=== PATIENT | male | born 1945 | race Caucasian/White ===

== ENCOUNTER 2016-09-13 17:14 | Inpatient (IN) | payer MEDICARE, MEDICAID ==
[2016-09-13] MEDS ORDERED: Piperac/Tazob 3.375 gm in NS* 3.375 GM/100 ML BAG IVPB ONE (18:15)
[2016-09-13] MEDS ORDERED: Acetaminophen TAB* 325 MG PO PRN (18:45)
[2016-09-13 18:46] LABS: ALT 38 U/L (7-52); Alkaline Phosphatase 55 U/L (34-104); BUN/Creatinine Ratio 31.6 (8-20); Blood Urea Nitrogen 62 mg/dL (6-24); CO2 Carbon Dioxide 24 mmol/L (22-32); Calcium 7.1 mg/dL (8.6-10.3); Chloride 85 mmol/L (101-111); Creatine Kinase 1374 U/L (10-223); EGFR African American 43.6 (>60); EGFR Non-African American 33.9 (>60); Globulin 2.6 g/dL (2-4); Glucose 60 mg/dL (70-100); Total Protein 5.6 g/dL (6.4-8.9)
[2016-09-13 18:47] LABS: Troponin I 0.02 ng/mL (<0.04)
[2016-09-13 19:01] LABS: Add Diff/Slide Review? Slide Review Added; Comments Flag Yes; Hematocrit 33 % (42-52); Hemoglobin 11.3 g/dl (14.0-18.0); Mean Corpuscular HGB Conc 35 g/dl (31-36); Mean Corpuscular Hemoglobin 29 pg (27-31); Mean Corpuscular Volume 84 fL (80-94); Mean Platelet Volume 9 um3 (7.4-10.4); Red Blood Count 3.91 10^6/ul (4.0-5.4); Red Cell Distribution Width 17 % (10.5-15); White Blood Count 2.8 10^3/ul (3.5-10.8)
[2016-09-13 19:17] LABS: Immature Granulocytes 25 % (0-9); Macrocytosis 1+; Microcytosis 1+; Neutrophil % 62 % (38-83)
[2016-09-13 19:20] LABS: Potassium 5.6 mmol/L (3.5-5.0)
[2016-09-13 19:22] LABS: AST 68 U/L (13-39); Sodium 119 mmol/L (133-145)
[2016-09-13] MEDS: Heparin VIAL(*) 5000 UNITS/ML VIAL (FIVE THOUSAND) SUBCUT SCH (22:31)
[2016-09-13 23:31] LABS: Urine Bacteria 1+ (Absent); Urine Bilirubin Negative (Negative); Urine Glucose Negative (Negative); Urine Nitrite Negative (Negative)
[2016-09-14] MEDS: Piperac/Tazob 3.375 gm in NS* 3.375 GM/100 ML BAG IVPB SCH ×3 (00:01→16:11)
[2016-09-14 00:27] LABS: BUN/Creatinine Ratio 36.6 (8-20); Calcium 7.3 mg/dL (8.6-10.3); EGFR Non-African American 45.1 (>60); Potassium 4.4 mmol/L (3.5-5.0)
[2016-09-14] MEDS: D5LR 1000 ML BAG* 1,000 ML IV SCH ×4 (01:36→22:49)
--- NOTE | 2016-09-14 02:59 | HP ---
HOSPITAL MEDICINE HISTORY AND PHYSICAL: DATE OF ADMISSION: 09/13/16 PRIMARY CARE PHYSICIAN: Dr. Fidel Abdullahi. ATTENDING PHYSICIAN: Dr. Shiela Leonardo* (dictation provided by Elham Abdi NP) CHIEF COMPLAINT: Altered mental status. HISTORY OF PRESENT ILLNESS: Mr. Griggs is a 70-year-old male, who has a history of paranoid schizophrenia and has altered mental status and is unable to provide any information today. Information is obtained from the electronic medical record from [facility] where the patient has been transferred from today as well as the patient's adult practice janitorial services supervisor, Juan F Abraham, and the patient's brother. Per the report, Mr. Griggs is not in contact with his brother and he was unable to provide information. The patient is seen routinely by his adult protective services' worker, Juan F, who states that he saw him on Tuesday. At that time, the patient was up and ambulatory and was taken to the grocery store. The patient had been counseled about the untidy state of his apartment and told that he should keep that clean. The patient stated that he had had some falls at home, but was unable to provide much more information to the case aide due to his paranoid schizophrenia. The patient is described as having flight of ideas and talking about students from [facility] tapping his brain. Per the report from the case aide, Mr. Griggs has longstanding paranoid schizophrenia, but refuses to take medications. The patient was not seen over the weekend. Today, he was visited by a person from [facility]. wWhen Mr. Griggs did not answer the door he was found to be on the ground on his back, unable to get up EMS reports that the house and patient were found to be covered with feces urine, and garbage. At [facility], the patient was noted to have urinary retention per the report and a smith was placed. He was confirmed to have acute renal failure with creatinine of 2.6 with BUN of 79. He has rhabdomyolysis that was CK greater than 1000. His sodium was low at 115, potassium high at 6.8, lactic acid elevated at 3.1. His WBC is actually normal. We repeated those labs here once the patient arrived. His sodium has improved with IV fluids to 119, his potassium has also improved to 5.6, his BUN and creatinine have improved at 62 and 1.96 respectively. His lactic acidosis has resolved. His CK is only slightly higher at 1374. He is leukopenic with white blood cell count of 2.8, anemic and thrombocytopenic as well. At [facility], the patient had multiple imaging studies, which are to be uploaded to our computer system. Per the report from those, the patient had a CT of the brain, which showed left maxillary sinusitis. He had a CT cervical spine, which showed no acute abnormality. CT thoracic spine, which showed no acute abnormality. CT chest showed concern for aspiration pneumonitis bilaterally, although malignancy cannot be ruled out. It is described as having "debris" in the right bronchus intermedius and extending into the rhonchi in the right middle and right lower lobe associated with subsegmental atelectasis in the right middle lobe and multifocal ground-glass opacities throughout the right middle lobe, right lower lobe, left lower lobe, nonspecific aspiration pneumonitis or pneumonia, malignancy cannot be excluded on the single examination and close followup should be considered. The patient also had a CT abdomen, which notes that it is an abnormal examination; however, there was no IV or oral contrast. There was concern for massive lymphadenopathy around the aorta and possible malignancy. Based on Mr. Griggs' presentation with critical illness, he was transferred to [facility] to the intensive care unit. PAST MEDICAL HISTORY: Paranoid schizophrenia. No other known history is available. MEDICATIONS: The patient is reportedly not taking any medications other than herbs and I do not have a list of those. FAMILY HISTORY: Unobtainable. SOCIAL HISTORY: Unobtainable. I do note that the patient lives alone and has an adult protective worker, his name is "Juan F Abraham", his number is [phone]. The patient's brother's information is available in the computer, but the patient's brother states that he has not been in contact with him. REVIEW OF SYSTEMS: Unobtainable. PHYSICAL EXAMINATION GENERAL: Mr. Griggs is lying in the bed. He is mumbling incoherently. VITAL SIGNS: Temperature 97.3, heart rate 75, respiratory rate 15, O2 saturation 97% on 4 L nasal cannula, blood pressure 115/51. LUNGS: Clear to auscultation bilaterally with no accessory muscle use and good aeration. HEART: S1, S2. No murmur, rub, or gallop and regular. ABDOMEN: Soft and appears to be nontender at this point. Bowel sounds are positive x4. EXTREMITIES: No cyanosis or edema. NEURO: He will intermittently follow commands such as following my finger when asked to. At other times, he does not follow commands at all. He is noted to be having a degree of decerbrate posturing in his upper extremities but not in the lower extremities. His pupils are equal and reactive. He has been noted to move all extremities. His face is symmetrical. He has good Babinski's bilaterally in the feet. SKIN: The patient has multiple bruises and and excoriation. He also has multiple ulcerations to his back at the shoulder blade, on spine, and at the coccyx consistent with lying on the floor for an extended period of time. He also has bruising to his forehead. LABORATORY DATA: WBC 2.8, hemoglobin 11.3, hematocrit 33, and platelet count 61. INR 1.25. Sodium 119, potassium 5.6, chloride 85, serum bicarbonate 24, BUN 62, creatinine 1.96, glucose 60, lactic acid 1.6. Total CK 1374. Troponin 0.02. The reports are as read above in HPI and they will be loaded into PACS. The CDs were delivered. ASSESSMENT AND PLAN: Mr. Griggs is a 70-year-old male with past medical history of paranoid schizophrenia, who presents today from [facility] in transfer concerned for altered mental status, acute renal failure, rhabdomyolysis, and pneumonia. Our plans are as follows: 1. Altered mental status. Mr. Griggs does have an underlying history of paranoid schizophrenia, but he appears altered today with concern for encephalopathy. I suspect it is metabolic in nature secondary to his pneumonia , rhabdomyolysis, and renal failure. He has had a CT of the brain, which was negative. I see no evidence of stroke with no focal neurological deficits. 2. Pneumonia with sepsis. The patient has noted pneumonia on CT scan from [facility]. Plan to treat with Zosyn out of concern that this is likely an aspiration pneumonia. He is currently on 4 L nasal cannula and satting well. He has no respiratory distress. Blood cultures were sent at [facility]. His lactic acidosis has cleared. The patient has elevated bands to 25% with a leukopenia. Again, at this point, he is afebrile and his vitals are stable with good O2 saturation of 4 L. 3. Acute renal failure. The patient's creatinine has actually improved already with IV fluids, continue IV fluids, and recheck in the a.m. All medications will be dosed renally. I suspect that his renal failure is due to dehydration, however we will check a FENa. 4. Hyponatremia. Improved with IV fluids, suspect secondary to dehydration. Recheck at midnight and in AM. 5. Rhabodmyolysis. CK is only 1300, plan to continue IVF and recheck and midnight and in AM. 6. Questionable malignancy. There is a question of abnormal finding on CT abdomen and pelvis. We will need to repeat this, but at this point the patient is not able to tolerate oral contrast. He also has a grossly abnormal CBC with pancytopenia. 7. Urinary retention. Per verbal report, patient was noted to have urinary retention and a smith was placed. Patient will to have a voiding trial and may need to discharged with smith. Given his paranoid schizophrenia this may require that he have additional supports in the community or subacute rehab. 8. Paranoid schizophrenia. The patient has always in the past refused medications, but we will have him evaluated once his mental status is back to baseline. 9. DVT prophylaxis. Heparin subcu. 10. Disposition. To intensive care unit. TIME SPENT: Approximately 60 minutes was spent on the admission of this patient , more than half of the time was spent with the patient at the bedside reviewing the events leading up to his hospitalization, performing the physical examination, and reviewing the plan of care. ELHAM ABDI NP CC: Dr. Fidel Abdullahi* [id number]/[facility] #: [id number] BENITA
[2016-09-14 06:09] LABS: Hematocrit 33 % (42-52); Hemoglobin 11.1 g/dl (14.0-18.0); Mean Corpuscular HGB Conc 34 g/dl (31-36); Mean Corpuscular Hemoglobin 29 pg (27-31); Mean Corpuscular Volume 84 fL (80-94); Mean Platelet Volume 9 um3 (7.4-10.4); Red Blood Count 3.88 10^6/ul (4.0-5.4); Red Cell Distribution Width 17 % (10.5-15)
[2016-09-14 06:10] LABS: Add Diff/Slide Review? Manual Diff Added; Comments Flag Yes
[2016-09-14 06:11] LABS: White Blood Count 3.4 10^3/ul (3.5-10.8)
[2016-09-14 06:19] LABS: ALT 34 U/L (7-52); Albumin 2.5 g/dL (3.2-5.2); Alkaline Phosphatase 48 U/L (34-104); BUN/Creatinine Ratio 39.8 (8-20); Blood Urea Nitrogen 49 mg/dL (6-24); CO2 Carbon Dioxide 24 mmol/L (22-32); Calcium 7.2 mg/dL (8.6-10.3); Chloride 92 mmol/L (101-111); Creatine Kinase 958 U/L (10-223); EGFR African American 74.6 (>60); Globulin 2.4 g/dL (2-4); Glucose 92 mg/dL (70-100); Sodium 125 mmol/L (133-145); Total Protein 4.9 g/dL (6.4-8.9)
[2016-09-14] MEDS: Heparin VIAL(*) 5000 UNITS/ML VIAL (FIVE THOUSAND) SUBCUT SCH ×3 (06:34→21:30)
[2016-09-14 06:51] LABS: Immature Granulocytes 40 % (0-9); Metamyelocytes % 12 % (0-2); Myelocytes % 3 % (0-1); Neutrophil % 46 % (38-83); Reactive Lymph % 3 % (0-6)
[2016-09-14 06:52] LABS: Basophilic Stippling 1+; Burr Cells 1+
--- NOTE | 2016-09-14 08:20 | PN ---
Subjective Date of Service: 09/14/16 Interval History: Pt states he is sick of doctors. When he notices the bedside child monitor I explain what that is and he states "that is what they want you to think." I ask if I can perform a physical exam and he states very angrily "NO." Objective Active Medications: Acetaminophen (Tylenol Tab*) 650 mg PO Q6H PRN PRN Reason: Pain/fever Heparin Sodium (Porcine) (Heparin Vial(*)) 5,000 units SUBCUT Q8HR [facility] Last Admin: 09/14/16 06:34 Dose: 5,000 units Piperacillin Sod/Tazobactam Sod (Zosyn 3.375 Gm In Ns Premix*) 3.375 gm in 100 mls @ 25 mls/hr IVPB Q8H [facility] Last Admin: 09/14/16 00:01 Dose: 25 mls/hr Dextrose/Lactated Ringer's (D5lr 1000 Ml Bag*) 1,000 mls @ 150 mls/hr IV PER RATE [facility] Last Admin: 09/14/16 07:28 Dose: 150 mls/hr Vital Signs 09/13/16 09/13/16 09/13/16 17:18 17:21 17:24 Temperature 97.3 F Pulse Rate 70 Respiratory 17 23 20 Rate Blood Pressure 109/48 109/48 (mmHg) O2 Sat by Pulse 92 Oximetry 09/13/16 09/13/16 09/13/16 17:30 17:45 18:00 Temperature Pulse Rate 71 74 Respiratory 17 15 16 Rate Blood Pressure 106/48 113/50 130/57 (mmHg) O2 Sat by Pulse 92 95 Oximetry 09/13/16 09/13/16 09/13/16 18:15 18:30 18:49 Temperature Pulse Rate 80 74 75 Respiratory 18 19 18 Rate Blood Pressure 115/47 114/44 115/51 (mmHg) O2 Sat by Pulse 93 96 97 Oximetry 09/13/16 09/13/16 09/13/16 19:00 19:15 19:30 Temperature Pulse Rate 78 77 79 Respiratory 15 17 17 Rate Blood Pressure 103/64 104/53 (mmHg) O2 Sat by Pulse 97 96 95 Oximetry 09/13/16 09/13/16 09/13/16 19:45 20:00 20:15 Temperature 96.9 F Pulse Rate 72 72 71 Respiratory 16 20 17 Rate Blood Pressure 102/56 104/46 107/53 (mmHg) O2 Sat by Pulse 93 93 92 Oximetry 09/13/16 09/13/16 09/13/16 20:30 20:45 21:00 Temperature Pulse Rate 71 73 70 Respiratory 15 18 20 Rate Blood Pressure 108/58 108/60 114/63 (mmHg) O2 Sat by Pulse 92 91 92 Oximetry 09/13/16 09/13/16 09/13/16 21:15 21:30 21:45 Temperature Pulse Rate 71 73 72 Respiratory 17 18 18 Rate Blood Pressure 113/56 118/53 107/55 (mmHg) O2 Sat by Pulse 92 92 92 Oximetry 09/13/16 09/13/16 09/13/16 22:00 22:15 22:30 Temperature Pulse Rate 76 72 71 Respiratory 25 26 19 Rate Blood Pressure 102/52 82/47 96/48 (mmHg) O2 Sat by Pulse 91 89 91 Oximetry 09/13/16 09/13/16 09/13/16 22:45 23:00 23:01 Temperature Pulse Rate 66 65 Respiratory 18 19 19 Rate Blood Pressure 112/48 94/58 (mmHg) O2 Sat by Pulse 95 95 Oximetry 09/13/16 09/13/16 09/13/16 23:15 23:19 23:30 Temperature Pulse Rate 65 64 67 Respiratory 20 21 20 Rate Blood Pressure 99/46 100/53 (mmHg) O2 Sat by Pulse 95 95 94 Oximetry 09/13/16 09/14/16 09/14/16 23:46 00:00 00:15 Temperature 97.2 F Pulse Rate 65 66 65 Respiratory 22 22 22 Rate Blood Pressure 84/48 98/43 87/50 (mmHg) O2 Sat by Pulse 95 99 94 Oximetry 09/14/16 09/14/16 09/14/16 00:30 01:00 02:00 Temperature Pulse Rate 64 62 65 Respiratory 21 20 20 Rate Blood Pressure 83/45 112/46 109/39 (mmHg) O2 Sat by Pulse 96 94 100 Oximetry 09/14/16 09/14/16 09/14/16 03:00 04:00 05:00 Temperature 96.5 F Pulse Rate 73 70 74 Respiratory 24 17 25 Rate Blood Pressure 111/49 112/72 122/61 (mmHg) O2 Sat by Pulse 95 94 94 Oximetry 09/14/16 09/14/16 06:00 07:32 Temperature 97.5 F Pulse Rate 62 Respiratory 16 Rate Blood Pressure 124/59 (mmHg) O2 Sat by Pulse 98 Oximetry Oxygen Devices in Use Now: Simple Face Mask - 5L-98% Appearance: Elderly thin male lying in bed sleeping, awakens to voice, NAD Eyes: No Scleral Icterus Ears/Nose/Mouth/Throat: - - dry oral mucosa Respiratory: - - pt refuses Cardiovascular: - - pt refuses Abdominal: - - pt refuses Extremities: - - pt refuses Skin: - - pt has crusted over laceration above L eye, he will not otherwise let me perform a skin exam. Photo of his back from [place] reviewed and reveals pressure ulcerations overlying the scapula bilaterally and sacrum Neurological: - - Unable to determine if pt is oriented. He appears to be paranoid which is his baseline Result Diagrams: 09/14/16 05:45 09/14/16 06:35 Microbiology and Other Data: Microbiology 09/13/16 17:15 Nasal Screen MRSA (PCR)([facility]INA) - Final Nasal Mrsa Negative Assess/Plan/Problems-Billing Ms Griggs is a 70 yo M who has a h/o untreated paranoid schizophrenia who was last seen on 09/10/16 by his clinical case manager then found down on the floor of his home on 09/13/16 and brought to [facility] where he was found to be in acute renal failure with urinary retention, mild rhabdomyolysis, with a markedly abnormal CBC and CT imaging that showed patchy bibasilar infiltrates and massive lymphadenopathy around the abdominal aorta. He was transferred to [facility] for further evaluation and treatment. - Patient Problems (1) Acute renal failure Current Visit: Yes Status: Acute Comment: Likley secondary to obstruction and volume depletion. Improving with hydration and placement of the smith catheter. Unclear what his baseline creatinine is as we have no previous lab work. Continue the smith catheter for now, repeat blood work in AM. (2) Hyponatremia Current Visit: Yes Status: Acute Code(s): E87.1 - HYPO-OSMOLALITY AND HYPONATREMIA SNOMED Code(s): 24691259 Comment: Improving with IVF hydration. Will need follow up Na level this afternoon. I am hopeful the patient will agree to the recheck. I suspect his hyponatremia was secondary to volume depletion. (3) Urinary retention Current Visit: Yes Status: Acute Code(s): R33.9 - RETENTION OF URINE, UNSPECIFIED SNOMED Code(s): 426588214 Comment: Pt had a smith placed at [facility]. I do not want to remove the smith at this time to find that he is still in retention as he will likely refuse to have it replaced. Will keep smith in for another day, discuss with psych what to do if we remove the smith and he can not urinate and it needs to be replaced. (4) Rhabdomyolysis Current Visit: Yes Status: Acute Code(s): M62.82 - RHABDOMYOLYSIS SNOMED Code(s): 967269106 Comment: The patient developed mild rhabdomyolysis from lying on the floor for possibly 2 days (seen 09/10/16 before being found 09/13/16). His CPK is trending down. The patient has pressure ulcer changes on the scapula bilaterally and his sacrum. Will get a wound consult. (5) Pancytopenia Current Visit: Yes Status: Acute Code(s): D61.818 - OTHER PANCYTOPENIA SNOMED Code(s): 313532672 Comment: The patient's CBC is markedly abnormal with pancytopenia and numerous immature forms on the differential. He would benefit from an oncology evalulation however I do not think he will cooperate at this time. Discuss with psych about his ability to refuse evaluation/treatment. (6) Abdominal lymphadenopathy Current Visit: Yes Status: Acute Code(s): R59.0 - LOCALIZED ENLARGED LYMPH NODES SNOMED Code(s): 333465049 Comment: CT scan from [place] is concerning for massive lymphadenopathy around the abdominal aorta concerning for possible malignancy. At this time the patient will not be agreeable to working this up. Will need to discuss with psych about how much can be done against the patient's wishes. (7) Aspiration pneumonia Current Visit: Yes Status: Acute Code(s): J69.0 - PNEUMONITIS DUE TO INHALATION OF FOOD AND VOMIT SNOMED Code(s): 854018181 Comment: CT chest at [facility] was concerning for aspiration pneumonitis/pna bilaterally. Will continue zosyn for now and will monitor for respiratory symptoms. The patient was not agreeable to having a PCXR this AM. (8) Paranoid schizophrenia Current Visit: Yes Status: Acute Code(s): F20.0 - PARANOID SCHIZOPHRENIA SNOMED Code(s): 74909312 Comment: Pt has refused treatment as an outpatient. CUrrently he does not have capacity to make a discharge plan but unclear if he can refuse a work up for the pancytopenia/abdominal lymphadenopathy or treatment for his renal failure, hyponatremia or other acute issues. I have asked for a psych consult. (9) DVT prophylaxis Current Visit: Yes Status: Acute Code(s): MES8289 - SNOMED Code(s): 719792815 Comment: SQ heparin (10) Full code status Current Visit: Yes Status: Acute Code(s): Z78.9 - OTHER SPECIFIED HEALTH STATUS SNOMED Code(s): 934662529
[2016-09-14] MEDS: Haloperidol INJ IV/IM* 5 MG/ML AMP IV SLOW PU SCH ×2 (13:20→21:35)
[2016-09-14] MEDS: Collagenase 250 MG/GM OINT* 30 GM TOPICAL SCH (14:10)
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
[2016-09-14 18:27] LABS: Potassium 3.8 mmol/L (3.5-5.0)
[2016-09-15] MEDS: Piperac/Tazob 3.375 gm in NS* 3.375 GM/100 ML BAG IVPB SCH ×4 (00:25→23:45)
[2016-09-15] MEDS: D5LR 1000 ML BAG* 1,000 ML IV SCH ×2 (05:36→23:39)
[2016-09-15] MEDS: Heparin VIAL(*) 5000 UNITS/ML VIAL (FIVE THOUSAND) SUBCUT SCH ×2 (05:37→12:56)
[2016-09-15] MEDS: Collagenase 250 MG/GM OINT* 30 GM TOPICAL SCH (08:18)
[2016-09-15 08:24] LABS: Hematocrit 26 % (42-52); Hemoglobin 9.3 g/dl (14.0-18.0); Mean Corpuscular HGB Conc 35 g/dl (31-36); Mean Corpuscular Hemoglobin 30 pg (27-31); Mean Corpuscular Volume 84 fL (80-94); Mean Platelet Volume 8 um3 (7.4-10.4); Red Blood Count 3.14 10^6/ul (4.0-5.4); Red Cell Distribution Width 17 % (10.5-15); White Blood Count 9.1 10^3/ul (3.5-10.8)
[2016-09-15 08:25] LABS: Add Diff/Slide Review? Slide Review Added; Comments Flag Yes
[2016-09-15 08:37] LABS: BUN/Creatinine Ratio 47.1 (8-20); EGFR African American 147.8 (>60); Potassium 3.1 mmol/L (3.5-5.0)
[2016-09-15 09:53] LABS: Immature Granulocytes 21 % (0-9); Neutrophil % 68 % (38-83); Platelet Morphology Large; Reactive Lymph % 1 % (0-6)
[2016-09-15 09:54] LABS: Add Path Review? YES; Spherocytes 2+
[2016-09-15] MEDS: Haloperidol INJ IV/IM* 5 MG/ML AMP IV SLOW PU SCH ×2 (10:03→22:39)
[2016-09-15] MEDS ORDERED: Potassium Chlor TAB* 20 MEQ TAB.ER PO ONE (14:15)
--- NOTE | 2016-09-15 14:28 | PN ---
Subjective Date of Service: 09/15/16 Interval History: Pt is feeling ok. He denies any pain. He was able to tell me that he fell at home and that he falls frequently. He could not give me any other details. Objective Active Medications: Acetaminophen (Tylenol Tab*) 650 mg PO Q6H PRN PRN Reason: Pain/fever Collagenase (Santyl 250 Mg/Gm Oint*) 1 applic TOPICAL DAILY [facility] Last Admin: 09/15/16 08:18 Dose: 1 applic Haloperidol Lactate (Haldol Inj Iv/Im*) 0.5 mg IV SLOW PU BID [facility] Last Admin: 09/15/16 10:03 Dose: 0.5 mg Heparin Sodium (Porcine) (Heparin Vial(*)) 5,000 units SUBCUT Q8HR [facility] Last Admin: 09/15/16 12:56 Dose: Not Given Piperacillin Sod/Tazobactam Sod (Zosyn 3.375 Gm In Ns Premix*) 3.375 gm in 100 mls @ 25 mls/hr IVPB Q8H [facility] Last Admin: 09/15/16 08:17 Dose: 25 mls/hr Dextrose/Lactated Ringer's (D5lr 1000 Ml Bag*) 1,000 mls @ 150 mls/hr IV PER RATE [facility] Last Admin: 09/15/16 05:36 Dose: 150 mls/hr Vital Signs 09/14/16 09/14/16 09/14/16 15:22 20:00 20:02 Temperature 97.4 F 99.8 F Pulse Rate 84 94 Respiratory 17 16 16 Rate Blood Pressure 125/52 141/61 (mmHg) O2 Sat by Pulse 97 93 Oximetry 09/14/16 09/15/16 23:56 08:00 Temperature 98.3 F Pulse Rate 78 Respiratory 16 18 Rate Blood Pressure 119/52 (mmHg) O2 Sat by Pulse 95 Oximetry Oxygen Devices in Use Now: Nasal Cannula - 3L-95% Appearance: Elderly male sitting up in bed, NAD Eyes: No Scleral Icterus Ears/Nose/Mouth/Throat: Mucous Membranes Moist Respiratory: Symmetrical Chest Expansion and Respiratory Effort, Clear to Auscultation - decreased breath sounds in all lung wisdom Cardiovascular: NL Sounds; No Murmurs; No JVD, RRR, No Edema Abdominal: NL Sounds; No Tenderness; No Distention Extremities: No Clubbing, Cyanosis Skin: No Nodules or Sclerosis, - - shallow abraision to top of head, crusted over laceration above L eyebrow, unstageable pressure ulcers noted to the bilateral Neurological: - - oriented to being in the hospital, pleasant in conversation Result Diagrams: 09/15/16 08:08 09/15/16 08:08 Microbiology and Other Data: Microbiology 09/13/16 17:15 Nasal Screen MRSA (PCR)([facility]) - Final Nasal Mrsa Negative Assess/Plan/Problems-Billing Ms Griggs is a 70 yo M who has a h/o untreated paranoid schizophrenia who was last seen on 09/10/16 by his bilingual case manager then found down on the floor of his home on 09/13/16 and brought to [facility] where he was found to be in acute renal failure with urinary retention, mild rhabdomyolysis, with a markedly abnormal CBC and CT imaging that showed patchy bibasilar infiltrates and massive lymphadenopathy around the abdominal aorta. He was transferred to [facility] for further evaluation and treatment. - Patient Problems (1) Acute renal failure Current Visit: Yes Status: Acute Comment: Resolved with placement of smith and hydration. Will remove smith today to determine if he truly has urinary obstruction. If he is unable to void the smith will be replaced. (2) Hyponatremia Current Visit: Yes Status: Acute Code(s): E87.1 - HYPO-OSMOLALITY AND HYPONATREMIA SNOMED Code(s): 10770889 Comment: Resolved with hydration. (3) Urinary retention Current Visit: Yes Status: Acute Code(s): R33.9 - RETENTION OF URINE, UNSPECIFIED SNOMED Code(s): 685674343 Comment: Trial smith removal. If he fails to urinate by 2200 tonight will have bladder scan done. If >300ml in the bladder will need to replace the smith. Pt is in agreement with this plan. (4) Rhabdomyolysis Current Visit: Yes Status: Acute Code(s): M62.82 - RHABDOMYOLYSIS SNOMED Code(s): 641212189 Comment: Improving. Follow up CPK level tomorrow. The pateint has unstageable pressure ulcers on his scapula bilaterally and his sacrum. Continue santyl on the wounds. (5) Pancytopenia Current Visit: Yes Status: Acute Code(s): D61.818 - OTHER PANCYTOPENIA SNOMED Code(s): 978358970 Comment: WBC count improved today but he remains markedly thrombocytopenic ( worse today) and moderately anemic. (6) Abdominal lymphadenopathy Current Visit: Yes Status: Acute Code(s): R59.0 - LOCALIZED ENLARGED LYMPH NODES SNOMED Code(s): 725996712 Comment: CT scan from [place] is concerning for massive lymphadenopathy around the abdominal aorta concerning for possible malignancy. I discussed this with the patient and he declines oncology eval at this time. (7) Aspiration pneumonia Current Visit: Yes Status: Acute Code(s): J69.0 - PNEUMONITIS DUE TO INHALATION OF FOOD AND VOMIT SNOMED Code(s): 103383393 Comment: CT chest at [place] was concerning for aspiration pneumonitis/pna bilaterally. Will continue zosyn for now. Consider repeat CXR tomorrow. (8) Paranoid schizophrenia Current Visit: Yes Status: Acute Code(s): F20.0 - PARANOID SCHIZOPHRENIA SNOMED Code(s): 51168446 Comment: Continue haldol 0.5mg IV BID for now. Dr. Hawkins will follow up this coming Tuesday. (9) DVT prophylaxis Current Visit: Yes Status: Acute Code(s): DMH4113 - SNOMED Code(s): 050720124 Comment: stop SQ heparin given marked thrombocytopenia. (10) Full code status Current Visit: Yes Status: Acute Code(s): Z78.9 - OTHER SPECIFIED HEALTH STATUS SNOMED Code(s): 286181358
--- NOTE | 2016-09-15 21:36 | RAD ---
HISTORY: Fever COMPARISONS: None VIEWS: 2: Frontal and lateral views of the chest. FINDINGS: CARDIOMEDIASTINAL SILHOUETTE: The cardiomediastinal silhouette is normal. HUBERT: The hubert are normal. PLEURA: There are moderate to large bilateral pleural effusions LUNG PARENCHYMA: There is confluent alveolar opacification of the lung bases bilaterally ABDOMEN: The upper abdomen is clear. There is no subphrenic gas. BONES AND SOFT TISSUES: No bone or soft tissue abnormalities are noted. OTHER: None. IMPRESSION: BILATERAL PLEURAL EFFUSIONS WITH BIBASILAR ATELECTASIS VERSUS CONSOLIDATION
[2016-09-15 23:25] LABS: Urine Bacteria Absent (Absent); Urine Bilirubin Negative (Negative); Urine Glucose 1+(50 mg/dL) (Negative); Urine Nitrite Negative (Negative)
[2016-09-16 06:59] LABS: Hematocrit 25 % (42-52); Hemoglobin 8.6 g/dl (14.0-18.0); Mean Corpuscular HGB Conc 35 g/dl (31-36); Mean Corpuscular Hemoglobin 30 pg (27-31); Mean Corpuscular Volume 86 fL (80-94); Mean Platelet Volume 8 um3 (7.4-10.4); Red Blood Count 2.89 10^6/ul (4.0-5.4); Red Cell Distribution Width 17 % (10.5-15); White Blood Count 7.3 10^3/ul (3.5-10.8)
[2016-09-16 07:13] LABS: EGFR African American 161.5 (>60); EGFR Non-African American 125.5 (>60); Potassium 3.1 mmol/L (3.5-5.0)
[2016-09-16 07:15] LABS: Add Diff/Slide Review? Slide Review Added; Comments Flag Yes
[2016-09-16] MEDS: Haloperidol INJ IV/IM* 5 MG/ML AMP IV SLOW PU SCH ×2 (08:16→20:50)
[2016-09-16] MEDS: Collagenase 250 MG/GM OINT* 30 GM TOPICAL SCH (08:17)
[2016-09-16] MEDS: Piperac/Tazob 3.375 gm in NS* 3.375 GM/100 ML BAG IVPB SCH ×2 (08:17→18:27)
[2016-09-16] MEDS: D5LR 1000 ML BAG* 1,000 ML IV SCH (09:12)
--- NOTE | 2016-09-16 09:43 | PN ---
Subjective Date of Service: 09/16/16 Interval History: Pt is feeling ok. He feels very weak. He can not lift his arms off the bed to feed himself. He denies any pain at this time. Nursing noted the patient choked on eggs this AM. Objective Active Medications: Acetaminophen (Tylenol Tab*) 650 mg PO Q6H PRN PRN Reason: Pain/fever Last Admin: 09/15/16 19:38 Dose: 650 mg Collagenase (Santyl 250 Mg/Gm Oint*) 1 applic TOPICAL DAILY [facility] Last Admin: 09/16/16 08:17 Dose: 1 applic Haloperidol Lactate (Haldol Inj Iv/Im*) 0.5 mg IV SLOW PU BID [facility] Last Admin: 09/16/16 08:16 Dose: 0.5 mg Piperacillin Sod/Tazobactam Sod (Zosyn 3.375 Gm In Ns Premix*) 3.375 gm in 100 mls @ 25 mls/hr IVPB Q8H [facility] Last Admin: 09/16/16 08:17 Dose: 25 mls/hr Dextrose/Lactated Ringer's (D5lr 1000 Ml Bag*) 1,000 mls @ 150 mls/hr IV PER RATE [facility] Last Admin: 09/16/16 09:12 Dose: 150 mls/hr Potassium Chloride (Klor-Con Liquid*) 40 meq PO Q4H [facility] Stop: 09/16/16 14:01 Vital Signs 09/15/16 09/15/16 09/15/16 14:04 15:16 19:23 Temperature 98.8 F 98.5 F 102.0 F Pulse Rate 84 77 95 Respiratory 22 18 14 Rate Blood Pressure 136/49 140/60 126/49 (mmHg) O2 Sat by Pulse 99 100 97 Oximetry 09/15/16 09/15/16 09/16/16 20:00 23:55 04:19 Temperature 98.2 F 98.4 F Pulse Rate 86 85 Respiratory 18 16 16 Rate Blood Pressure 143/53 143/59 (mmHg) O2 Sat by Pulse 96 99 Oximetry 09/16/16 08:00 Temperature Pulse Rate Respiratory 18 Rate Blood Pressure (mmHg) O2 Sat by Pulse Oximetry Oxygen Devices in Use Now: Nasal Cannula - 3L-99% Appearance: Elderly male sitting in up straight in bed, eating, NAD Eyes: No Scleral Icterus Ears/Nose/Mouth/Throat: Mucous Membranes Moist Respiratory: Symmetrical Chest Expansion and Respiratory Effort, Clear to Auscultation - poor participation but sounds clear Cardiovascular: RRR, - - slightly tachycardic at times Abdominal: NL Sounds; No Tenderness; No Distention Extremities: No Clubbing, Cyanosis Skin: No Nodules or Sclerosis, - - pressure ulcers on back partially examined this AM, eschar still present making the ulcers unstageable Neurological: - - alert, quietly conversive Result Diagrams: 09/16/16 06:33 09/16/16 06:33 Microbiology and Other Data: Microbiology 09/13/16 17:15 Nasal Screen MRSA (PCR)([facility]) - Final Nasal Mrsa Negative Assess/Plan/Problems-Billing Ms Griggs is a 70 yo M who has a h/o untreated paranoid schizophrenia who was last seen on 09/10/16 by his shoe caser then found down on the floor of his home on 09/13/16 and brought to [facility] where he was found to be in acute renal failure with urinary retention, mild rhabdomyolysis, with a markedly abnormal CBC and CT imaging that showed patchy bibasilar infiltrates and massive lymphadenopathy around the abdominal aorta. He was transferred to [facility] for further evaluation and treatment. - Patient Problems (1) Acute renal failure Current Visit: Yes Status: Acute Comment: Resolved. Voiding trial attempted yesterday but pt clearly has urinary retention as he was unable to urinate and had >1000ml of urine in his bladder. Keep smith in place. He will need urology evaluation. (2) Hyponatremia Current Visit: Yes Status: Acute Code(s): E87.1 - HYPO-OSMOLALITY AND HYPONATREMIA SNOMED Code(s): 48638011 Comment: Resolved with hydration. (3) Urinary retention Current Visit: Yes Status: Acute Code(s): R33.9 - RETENTION OF URINE, UNSPECIFIED SNOMED Code(s): 387290371 Comment: Pt has significant urinary retention. Smith has been replaced and will remain in until seen by urology. (4) Rhabdomyolysis Current Visit: Yes Status: Acute Code(s): M62.82 - RHABDOMYOLYSIS SNOMED Code(s): 827253830 Comment: CPK level pending for this AM. The pateint has unstageable pressure ulcers on his scapula bilaterally and his sacrum. Continue santyl on the wounds. (5) Pancytopenia Current Visit: Yes Status: Acute Code(s): D61.818 - OTHER PANCYTOPENIA SNOMED Code(s): 006879295 Comment: Pt remains anemic and markedly thrombocytopenic. He would benefit from a bone marrow biopsy but he has been declining oncology evaluation. Will send HIV test as this too could cause pancytopenia. (6) Abdominal lymphadenopathy Current Visit: Yes Status: Acute Code(s): R59.0 - LOCALIZED ENLARGED LYMPH NODES SNOMED Code(s): 523440279 Comment: Will continue to offer oncology evaluation. HIV pending. (7) Aspiration pneumonia Current Visit: Yes Status: Acute Code(s): J69.0 - PNEUMONITIS DUE TO INHALATION OF FOOD AND VOMIT SNOMED Code(s): 743325310 Comment: Continue zosyn-pt had fever of 102 last night. Will continue to monitor for other signs of infection. The patient has been septic since admission likely secondary to the aspiration pneumonia. His SOFA score was elevated on admission at 4. His SOFA score now is 2-3 ( higher score because GCS score reduced due to marked weakness in his extremities). Will continue IVF and monitor his VS, labs and SOFA score. (8) Hypoglycemia Current Visit: Yes Status: Acute Code(s): E16.2 - HYPOGLYCEMIA, UNSPECIFIED SNOMED Code(s): 993150067 Comment: The patient's blood sugars are low normal despite being on D5LR. Will stop the current fluids and start just LR and will need to monitor his blood sugars. (9) Paranoid schizophrenia Current Visit: Yes Status: Acute Code(s): F20.0 - PARANOID SCHIZOPHRENIA SNOMED Code(s): 42601206 Comment: Continue haldol 0.5mg IV BID for now. Dr. Hawkins will follow up this coming Tuesday. (10) DVT prophylaxis Current Visit: Yes Status: Acute Code(s): WLZ8110 - SNOMED Code(s): 911040038 Comment: SCDs (11) Full code status Current Visit: Yes Status: Acute Code(s): Z78.9 - OTHER SPECIFIED HEALTH STATUS SNOMED Code(s): 003377525
[2016-09-16] MEDS: Potassium Chloride LIQUID* 20 MEQ PACKET PO SCH ×2 (09:59→12:56)
[2016-09-16] MEDS ORDERED: Potassium Chlor TAB* 20 MEQ TAB.ER PO SCH (10:00)
[2016-09-17] MEDS: Piperac/Tazob 3.375 gm in NS* 3.375 GM/100 ML BAG IVPB SCH ×3 (00:48→15:04)
[2016-09-17 06:26] LABS: Hematocrit 26 % (42-52); Hemoglobin 8.8 g/dl (14.0-18.0); Mean Corpuscular HGB Conc 33 g/dl (31-36); Mean Corpuscular Hemoglobin 29 pg (27-31); Mean Corpuscular Volume 87 fL (80-94); Mean Platelet Volume 8 um3 (7.4-10.4); Red Blood Count 3.04 10^6/ul (4.0-5.4); Red Cell Distribution Width 17 % (10.5-15); White Blood Count 4.9 10^3/ul (3.5-10.8)
[2016-09-17 06:32] LABS: Add Diff/Slide Review? Slide Review Added; Comments Flag Yes
[2016-09-17 06:34] LABS: Albumin 2.3 g/dL (3.2-5.2); BUN/Creatinine Ratio 55.1 (8-20); EGFR African American 215.8 (>60); EGFR Non-African American 167.8 (>60); Globulin 2.4 g/dL (2-4); Potassium 3.6 mmol/L (3.5-5.0); Total Bilirubin 0.6 mg/dL (0.2-1.0); Total Protein 4.7 g/dL (6.4-8.9)
[2016-09-17] MEDS: Haloperidol INJ IV/IM* 5 MG/ML AMP IV SLOW PU SCH (07:58)
--- NOTE | 2016-09-17 11:55 | PN ---
Subjective Date of Service: 09/17/16 Interval History: Pt is feeling ok. He is very weak. He c/o pain in his hands and states his arms are very uncomfortable in the position they are in. He is unable to move his extremities. Objective Active Medications: Acetaminophen (Tylenol Tab*) 650 mg PO Q6H PRN PRN Reason: Pain/fever Last Admin: 09/15/16 19:38 Dose: 650 mg Collagenase (Santyl 250 Mg/Gm Oint*) 1 applic TOPICAL DAILY [facility] Last Admin: 09/16/16 08:17 Dose: 1 applic Haloperidol Lactate (Haldol Inj Iv/Im*) 0.5 mg IV SLOW PU BID [facility] Last Admin: 09/17/16 07:58 Dose: 0.5 mg Piperacillin Sod/Tazobactam Sod (Zosyn 3.375 Gm In Ns Premix*) 3.375 gm in 100 mls @ 25 mls/hr IVPB Q8H [facility] Last Admin: 09/17/16 07:59 Dose: 25 mls/hr Vital Signs 09/16/16 09/16/16 09/16/16 15:23 18:21 18:27 Temperature 97.9 F 98.1 F 98.1 F Pulse Rate 99 97 97 Respiratory 24 20 20 Rate Blood Pressure 178/89 157/76 157/76 (mmHg) O2 Sat by Pulse 96 100 100 Oximetry 09/16/16 09/16/16 09/16/16 20:06 20:29 23:37 Temperature 98.3 F 98.1 F Pulse Rate 83 83 Respiratory 18 16 18 Rate Blood Pressure 153/68 163/81 (mmHg) O2 Sat by Pulse 97 100 Oximetry 09/17/16 03:55 Temperature Pulse Rate 72 Respiratory 20 Rate Blood Pressure 151/66 (mmHg) O2 Sat by Pulse 100 Oximetry Oxygen Devices in Use Now: Nasal Cannula - 3L-100% Appearance: Elderly cachectic male lying in bed, NAD Eyes: No Scleral Icterus Ears/Nose/Mouth/Throat: Mucous Membranes Moist Respiratory: Symmetrical Chest Expansion and Respiratory Effort, Clear to Auscultation Cardiovascular: NL Sounds; No Murmurs; No JVD, RRR, No Edema Abdominal: NL Sounds; No Tenderness; No Distention Extremities: No Clubbing, Cyanosis Skin: No Nodules or Sclerosis, - - wounds on back not inspected today, hands appear slightly swollen and bruised Neurological: - - alert, interactive, can not lift arms off bed, can not make a director of marketing communications with hands Result Diagrams: 09/17/16 05:47 09/17/16 05:47 Microbiology and Other Data: Microbiology 09/13/16 17:15 Nasal Screen MRSA (PCR)([facility]) - Final Nasal Mrsa Negative Assess/Plan/Problems-Billing Ms Griggs is a 70 yo M who has a h/o untreated paranoid schizophrenia who was last seen on 09/10/16 by his caseworker protective services then found down on the floor of his home on 09/13/16 and brought to [facility] where he was found to be in acute renal failure with urinary retention, mild rhabdomyolysis, with a markedly abnormal CBC and CT imaging that showed patchy bibasilar infiltrates and massive lymphadenopathy around the abdominal aorta. He was transferred to [facility] for further evaluation and treatment. - Patient Problems (1) Acute renal failure Current Visit: Yes Status: Acute Comment: Resolved. Keep smith in place. (2) Hyponatremia Current Visit: Yes Status: Acute Code(s): E87.1 - HYPO-OSMOLALITY AND HYPONATREMIA SNOMED Code(s): 14638975 Comment: Resolved with hydration. (3) Urinary retention Current Visit: Yes Status: Acute Code(s): R33.9 - RETENTION OF URINE, UNSPECIFIED SNOMED Code(s): 435491320 Comment: Pt has significant urinary retention. Smith has been replaced and will remain in until seen by urology. (4) Rhabdomyolysis Current Visit: Yes Status: Acute Code(s): M62.82 - RHABDOMYOLYSIS SNOMED Code(s): 813989157 Comment: CPK elevation has resolved. Wounds to continue to be dressed with santyl and vaseline gauze. (5) Pancytopenia Current Visit: Yes Status: Acute Code(s): D61.818 - OTHER PANCYTOPENIA SNOMED Code(s): 432160837 Comment: Pt agrees to oncology evaluation today. Continue to monitor CBC. (6) Abdominal lymphadenopathy Current Visit: Yes Status: Acute Code(s): R59.0 - LOCALIZED ENLARGED LYMPH NODES SNOMED Code(s): 902140171 Comment: Oncology evaluation. HIV pending. (7) Aspiration pneumonia Current Visit: Yes Status: Acute Code(s): J69.0 - PNEUMONITIS DUE TO INHALATION OF FOOD AND VOMIT SNOMED Code(s): 303985325 Comment: No fever since evening of 09/15/16. Continue zosyn for aspiration pneumonia. Today is D# 5 of therapy. He continues to have a SOFA score of 2-3 but overall is imrpoving. (8) Hypoglycemia Current Visit: Yes Status: Acute Code(s): E16.2 - HYPOGLYCEMIA, UNSPECIFIED SNOMED Code(s): 717430507 Comment: Sugars are stable on just LR. Continue to monitor. (9) Paranoid schizophrenia Current Visit: Yes Status: Acute Code(s): F20.0 - PARANOID SCHIZOPHRENIA SNOMED Code(s): 56500261 Comment: Continue haldol 0.5mg IV BID for now. Dr. Hawkins will follow today. (10) DVT prophylaxis Current Visit: Yes Status: Acute Code(s): LJR0469 - SNOMED Code(s): 550424597 Comment: SCDs (11) Full code status Current Visit: Yes Status: Acute Code(s): Z78.9 - OTHER SPECIFIED HEALTH STATUS SNOMED Code(s): 218028221
[2016-09-17] MEDS: Collagenase 250 MG/GM OINT* 30 GM TOPICAL SCH (15:04)
--- NOTE | 2016-09-17 16:50 | CONSULT ---
Identification - Patient Identification Reason for Psychiatric Consultation: Incapacitating Symptoms -: Patient is a 70 year old, M admitted on 09/13/16. History - Objective HPI: Discussed with Dr. Palacios and nursing - Pt. is doing very well behaviorally. Mr Griggs was in a state of vince on approach: "I have a lot of problems, but o well....(smiling)" He made humorous remarks " yes I am 'hearing voices'..... YOURS!!" He had no complaints or concerns, and recommended I study "herbal medicine" as a way to be more special. Lab Results: Laboratory Tests 09/13/16 09/13/16 09/13/16 18:00 18:00 18:00 WBC RBC Hgb Hct MCV MCH MCHC RDW Plt Count MPV Immature Gran % (Auto) Neut % (Auto) Lymph % (Auto) Geary % (Auto) Eos % (Auto) Baso % (Auto) Absolute Neuts (auto) Absolute Lymphs (auto) Absolute Monos (auto) Absolute Eos (auto) Absolute Basos (auto) Absolute Nucleated RBC Neutrophils % Band Neutrophils % Lymphocytes % Reactive Lymphs % Monocytes % Metamyelocytes % Myelocytes % Nucleated RBC % Platelet Morphology Normal RBC Morphology Basophilic Stippling Microcytosis Macrocytosis Spherocytes Ifeanyi Cells Hem Pathologist Commnt INR (Anticoag Therapy) 1.25 H Sodium 119 L* Potassium 5.6 H Chloride 85 L Carbon Dioxide 24 Anion Gap TNP BUN 62 H Creatinine 1.96 H Est GFR ( Amer) 43.6 Est GFR (Non-Af Amer) 33.9 BUN/Creatinine Ratio 31.6 H Glucose 60 L Lactic Acid 1.6 Calcium 7.1 L Total Bilirubin 0.80 AST 68 H ALT 38 Alkaline Phosphatase 55 Total Creatine Kinase 1374 H Troponin I 0.02 Total Protein 5.6 L Albumin 3.0 L Globulin 2.6 Albumin/Globulin Ratio 1.2 Urine Color Urine Appearance Urine pH Ur Specific Mesa Urine Protein Urine Ketones Urine Blood Urine Nitrate Urine Bilirubin Urine Urobilinogen Ur Leukocyte Esterase Urine WBC (Auto) Urine RBC (Auto) Ur Squamous Epith Cells Urine Bacteria Hyaline Casts Ur Random Creatinine Ur Random Sodium Urine Glucose HIV 1&2 Antibody 09/13/16 09/13/16 09/13/16 18:45 21:17 21:17 WBC 2.8 L RBC 3.91 L Hgb 11.3 L Hct 33 L MCV 84 MCH 29 MCHC 35 RDW 17 H Plt Count 61 L MPV 9 Immature Gran % (Auto) 25 H Neut % (Auto) 89.8 H Lymph % (Auto) 1.3 L Geary % (Auto) 7.1 Eos % (Auto) 1.5 Baso % (Auto) 0.3 Absolute Neuts (auto) 2.5 Absolute Lymphs (auto) 0 L Absolute Monos (auto) 0.2 Absolute Eos (auto) 0 Absolute Basos (auto) 0 Absolute Nucleated RBC 0.01 Neutrophils % 62 Band Neutrophils % 25 H Lymphocytes % 8 L Reactive Lymphs % Monocytes % 5 Metamyelocytes % Myelocytes % Nucleated RBC % 0.2 Platelet Morphology Normal RBC Morphology Not Reportable Basophilic Stippling Microcytosis 1+ Macrocytosis 1+ Spherocytes Ifeanyi Cells Hem Pathologist Commnt INR (Anticoag Therapy) Sodium Potassium Chloride Carbon Dioxide Anion Gap BUN Creatinine Est GFR ( Amer) Est GFR (Non-Af Amer) BUN/Creatinine Ratio Glucose Lactic Acid Calcium Total Bilirubin AST ALT Alkaline Phosphatase Total Creatine Kinase Troponin I Total Protein Albumin Globulin Albumin/Globulin Ratio Urine Color Yellow Urine Appearance Clear Urine pH 6.0 Ur Specific Mesa 1.008 L Urine Protein 1+(30 mg/dl) H Urine Ketones Negative Urine Blood 3+ H Urine Nitrate Negative Urine Bilirubin Negative Urine Urobilinogen Negative Ur Leukocyte Esterase Negative Urine WBC (Auto) 1+(6-10/hpf) H Urine RBC (Auto) 3+(>10/hpf) H Ur Squamous Epith Cells Present H Urine Bacteria 1+ H Hyaline Casts Present H Ur Random Creatinine 23.20 Ur Random Sodium 37 Urine Glucose Negative HIV 1&2 Antibody 09/14/16 09/14/16 09/14/16 00:01 05:45 05:45 WBC 3.4 L RBC 3.88 L Hgb 11.1 L Hct 33 L MCV 84 MCH 29 MCHC 34 RDW 17 H Plt Count 62 L MPV 9 Immature Gran % (Auto) 40 H Neut % (Auto) Lymph % (Auto) Geary % (Auto) Eos % (Auto) Baso % (Auto) Absolute Neuts (auto) 2.9 Absolute Lymphs (auto) 0.3 L Absolute Monos (auto) 0.2 Absolute Eos (auto) Not Reportable Absolute Basos (auto) Not Reportable Absolute Nucleated RBC Not Reportable Neutrophils % 46 Band Neutrophils % 25 H Lymphocytes % 6 L Reactive Lymphs % 3 Monocytes % 5 Metamyelocytes % 12 H Myelocytes % 3 H Nucleated RBC % Platelet Morphology Normal RBC Morphology Not Reportable Basophilic Stippling 1+ Microcytosis Macrocytosis Spherocytes Lapoint Cells 1+ Hem Pathologist Commnt INR (Anticoag Therapy) Sodium 122 L 125 L Potassium 4.4 TNP Chloride 89 L 92 L Carbon Dioxide 24 24 Anion Gap 9 TNP BUN 56 H 49 H Creatinine 1.53 H 1.23 H Est GFR ( Amer) 58.0 74.6 Est GFR (Non-Af Amer) 45.1 58.0 BUN/Creatinine Ratio 36.6 H 39.8 H Glucose 50 L 92 Lactic Acid Calcium 7.3 L 7.2 L Total Bilirubin 0.70 AST TNP ALT 34 Alkaline Phosphatase 48 Total Creatine Kinase 1092 H 958 H Troponin I Total Protein 4.9 L Albumin 2.5 L Globulin 2.4 Albumin/Globulin Ratio 1.0 Urine Color Urine Appearance Urine pH Ur Specific Mesa Urine Protein Urine Ketones Urine Blood Urine Nitrate Urine Bilirubin Urine Urobilinogen Ur Leukocyte Esterase Urine WBC (Auto) Urine RBC (Auto) Ur Squamous Epith Cells Urine Bacteria Hyaline Casts Ur Random Creatinine Ur Random Sodium Urine Glucose HIV 1&2 Antibody 09/14/16 09/14/16 09/14/16 06:35 11:01 17:50 WBC RBC Hgb Hct MCV MCH MCHC RDW Plt Count MPV Immature Gran % (Auto) Neut % (Auto) Lymph % (Auto) Geary % (Auto) Eos % (Auto) Baso % (Auto) Absolute Neuts (auto) Absolute Lymphs (auto) Absolute Monos (auto) Absolute Eos (auto) Absolute Basos (auto) Absolute Nucleated RBC Neutrophils % Band Neutrophils % Lymphocytes % Reactive Lymphs % Monocytes % Metamyelocytes % Myelocytes % Nucleated RBC % Platelet Morphology Normal RBC Morphology Basophilic Stippling Microcytosis Macrocytosis Spherocytes Ifeanyi Cells Hem Pathologist Commnt INR (Anticoag Therapy) Sodium 129 L Potassium TNP 3.9 3.8 Chloride 96 L Carbon Dioxide 27 Anion Gap 6 BUN Creatinine Est GFR ( Amer) Est GFR (Non-Af Amer) BUN/Creatinine Ratio Glucose Lactic Acid Calcium Total Bilirubin AST TNP 54 H ALT Alkaline Phosphatase Total Creatine Kinase Troponin I Total Protein Albumin Globulin Albumin/Globulin Ratio Urine Color Urine Appearance Urine pH Ur Specific Mesa Urine Protein Urine Ketones Urine Blood Urine Nitrate Urine Bilirubin Urine Urobilinogen Ur Leukocyte Esterase Urine WBC (Auto) Urine RBC (Auto) Ur Squamous Epith Cells Urine Bacteria Hyaline Casts Ur Random Creatinine Ur Random Sodium Urine Glucose HIV 1&2 Antibody 09/15/16 09/15/16 09/15/16 08:08 08:08 23:00 WBC 9.1 RBC 3.14 L Hgb 9.3 L Hct 26 L MCV 84 MCH 30 MCHC 35 RDW 17 H Plt Count 34 L MPV 8 Immature Gran % (Auto) 21 H Neut % (Auto) 94.5 H Lymph % (Auto) 2.8 L Geary % (Auto) 2.6 Eos % (Auto) 0.1 Baso % (Auto) 0 Absolute Neuts (auto) 8.6 H Absolute Lymphs (auto) 0.3 L Absolute Monos (auto) 0.2 Absolute Eos (auto) 0 Absolute Basos (auto) 0 Absolute Nucleated RBC 0 Neutrophils % 68 Band Neutrophils % 21 H Lymphocytes % 4 L Reactive Lymphs % 1 Monocytes % 6 Metamyelocytes % Myelocytes % Nucleated RBC % 0 Platelet Morphology Large Normal RBC Morphology Not Reportable Basophilic Stippling Microcytosis Macrocytosis Spherocytes 2+ Ifeanyi Cells Hem Pathologist Commnt INR (Anticoag Therapy) Sodium 133 Potassium 3.1 L Chloride 101 Carbon Dioxide 28 Anion Gap 4 BUN 32 H Creatinine 0.68 Est GFR ( Amer) 147.8 Est GFR (Non-Af Amer) 115.0 BUN/Creatinine Ratio 47.1 H Glucose 110 H Lactic Acid Calcium 8.0 L Total Bilirubin AST ALT Alkaline Phosphatase Total Creatine Kinase Troponin I Total Protein Albumin Globulin Albumin/Globulin Ratio Urine Color Yellow Urine Appearance Clear Urine pH 5.0 Ur Specific Mesa 1.016 Urine Protein 1+(30 mg/dl) H Urine Ketones Negative Urine Blood 2+ H Urine Nitrate Negative Urine Bilirubin Negative Urine Urobilinogen Negative Ur Leukocyte Esterase Negative Urine WBC (Auto) Absent Urine RBC (Auto) 3+(>10/hpf) H Ur Squamous Epith Cells Present H Urine Bacteria Absent Hyaline Casts Ur Random Creatinine Ur Random Sodium Urine Glucose 1+(50 mg/dl) H HIV 1&2 Antibody 09/16/16 09/16/16 09/16/16 06:33 06:33 06:33 WBC 7.3 RBC 2.89 L Hgb 8.6 L Hct 25 L MCV 86 MCH 30 MCHC 35 RDW 17 H Plt Count 33 L MPV 8 Immature Gran % (Auto) Neut % (Auto) 92.0 H Lymph % (Auto) 3.5 L Geary % (Auto) 3.9 Eos % (Auto) 0.1 Baso % (Auto) 0.5 Absolute Neuts (auto) 6.7 Absolute Lymphs (auto) 0.3 L Absolute Monos (auto) 0.3 Absolute Eos (auto) 0 Absolute Basos (auto) 0 Absolute Nucleated RBC 0.01 Neutrophils % Band Neutrophils % Lymphocytes % Reactive Lymphs % Monocytes % Metamyelocytes % Myelocytes % Nucleated RBC % 0.1 Platelet Morphology Normal RBC Morphology Basophilic Stippling Microcytosis Macrocytosis Spherocytes Ifeanyi Cells Hem Pathologist Commnt INR (Anticoag Therapy) Sodium 139 Potassium 3.1 L Chloride 104 Carbon Dioxide 32 Anion Gap 3 BUN 34 H Creatinine 0.63 L Est GFR ( Amer) 161.5 Est GFR (Non-Af Amer) 125.5 BUN/Creatinine Ratio 54.0 H Glucose 123 H Lactic Acid Calcium 8.0 L Total Bilirubin AST ALT Alkaline Phosphatase Total Creatine Kinase 117 Troponin I Total Protein Albumin Globulin Albumin/Globulin Ratio Urine Color Urine Appearance Urine pH Ur Specific Mesa Urine Protein Urine Ketones Urine Blood Urine Nitrate Urine Bilirubin Urine Urobilinogen Ur Leukocyte Esterase Urine WBC (Auto) Urine RBC (Auto) Ur Squamous Epith Cells Urine Bacteria Hyaline Casts Ur Random Creatinine Ur Random Sodium Urine Glucose HIV 1&2 Antibody Nonreactive 09/17/16 09/17/16 05:47 05:47 WBC 4.9 RBC 3.04 L Hgb 8.8 L Hct 26 L MCV 87 MCH 29 MCHC 33 RDW 17 H Plt Count 29 L MPV 8 Immature Gran % (Auto) Neut % (Auto) 84.4 H Lymph % (Auto) 6.4 L Geary % (Auto) 8.6 Eos % (Auto) 0.1 Baso % (Auto) 0.5 Absolute Neuts (auto) 4.1 Absolute Lymphs (auto) 0.3 L Absolute Monos (auto) 0.4 Absolute Eos (auto) 0 Absolute Basos (auto) 0 Absolute Nucleated RBC 0 Neutrophils % Band Neutrophils % Lymphocytes % Reactive Lymphs % Monocytes % Metamyelocytes % Myelocytes % Nucleated RBC % 0.1 Platelet Morphology Normal RBC Morphology Basophilic Stippling Microcytosis Macrocytosis Spherocytes Lapoint Cells Hem Pathologist Commnt INR (Anticoag Therapy) Sodium 143 Potassium 3.6 Chloride 106 Carbon Dioxide 33 H Anion Gap 4 BUN 27 H Creatinine 0.49 L Est GFR ( Amer) 215.8 Est GFR (Non-Af Amer) 167.8 BUN/Creatinine Ratio 55.1 H Glucose 108 H Lactic Acid Calcium 8.0 L Total Bilirubin 0.60 AST 20 ALT 27 Alkaline Phosphatase 50 Total Creatine Kinase Troponin I Total Protein 4.7 L Albumin 2.3 L Globulin 2.4 Albumin/Globulin Ratio 1.0 Urine Color Urine Appearance Urine pH Ur Specific Mesa Urine Protein Urine Ketones Urine Blood Urine Nitrate Urine Bilirubin Urine Urobilinogen Ur Leukocyte Esterase Urine WBC (Auto) Urine RBC (Auto) Ur Squamous Epith Cells Urine Bacteria Hyaline Casts Ur Random Creatinine Ur Random Sodium Urine Glucose HIV 1&2 Antibody Exam Appearance: Thin Framed Hygiene: Normal Grooming: Disheveled Psychomotor Activities: Abnormal-Decreased Attitude and Relatedness: Minimally Cooperative Eye Contact: Good - Speech Quality: Unpressured Latencies: Long Quantity: Terse Patient's Decription of Mood: "Good" Observed Affect: Non-labile Affect Consistent with: Euthymia Patient's Thought Process: Impoverished Thought Content: No Passive Wish, No Suicidal Planning, No Homicidal Ideation, No Paranoid Ideation Experiencing Hallucinations: No, Sensorium is Clear Level of Consciousness: Alert Impulse Control: Intact Insight and Judgement: Poor Impression - Impression Clinical Impression: 70-year-old male with apparent chronic schizophrenia and prior psychiatric hospitalization and suicide attempt, who is out of psychiatric treatment for an extended period. He is seriously medically ill and also has had residual psychotic symptoms. Additionally, he has had evidence of delirium with disorientation and alteration of level of consciousness. Stable behaviorally. In good spirits. Appropriate to discontinue Haldol (no longer justified as emergent). Inpatient DSM-IV Dx: Schizophrenia, Delirium secondary to general medical condition. Plan - Treatment Plan Treatment Plan: 1. Medication management: stop Haldol, evaluate next steps per clinical course 2. Ethics - consent. The patient clearly has severely diminished mental capacity - his brother has been available as surrogate. Medications: Current Medications Acetaminophen (Tylenol Tab*) 650 mg PO Q6H PRN PRN Reason: Pain/fever Last Admin: 09/15/16 19:38 Dose: 650 mg Collagenase (Santyl 250 Mg/Gm Oint*) 1 applic TOPICAL DAILY RAFAEL Last Admin: 09/17/16 15:04 Dose: 1 applic Piperacillin Sod/Tazobactam Sod (Zosyn 3.375 Gm In Ns Premix*) 3.375 gm in 100 mls @ 25 mls/hr IVPB Q8H RAFAEL Last Admin: 09/17/16 15:04 Dose: 25 mls/hr
[2016-09-17 19:19] LABS: Corrected Retic Count 0.6 % (0.5-1.5); Immature Retic Fraction 0.35; Maturation Factor Retic 1.5
[2016-09-17 19:21] LABS: Comments Flag Yes
--- NOTE | 2016-09-17 20:54 | CONS ---
NEUROLOGY CONSULT REPORT: DATE OF CONSULT: 09/17/16 REQUESTING PHYSICIAN: Dr. Palacios. REASON FOR CONSULT: Inability to move the extremities. HISTORY OF PRESENT ILLNESS: The patient is a 70-year-old male with a history of paranoid schizophrenia, who was admitted to the hospital on September 13 because of increased altered mental status. Apparently, on Tuesday09/10/16 the patient was seen by his adult protective services worker (Juan F) and he seemed at his baseline. Juan F had advised him to clean up his apartment as it did not seem to be clean or hygienic. The patient had reported to Juan F that he was having some falls at home. Then on 09/13/16, when [employer] tried to reach his apartment, he was not answering the door, and eventually, when they got to his apartment he was found to be on the ground on his back and he was found to be in a very unhygienic apartment covered in feces, urine, and garbage. He was taken to the [facility] and found to have urinary retention along with renal failure, rhabdomyolysis, hyponatremia, pancytopenia and hypokalemia. He had a CT of the cervical and thoracic spine, which were unremarkable. CT of the chest showed concern for aspiration pneumonitis bilaterally, but malignancy could not be ruled out. Also, CT of the abdomen showed an abnormality concerning for massive lymphadenopathy around the aorta and possible malignancy. He was then transferred to [facility] [place] for further management. Upon arrival, he had a Sodium level of 119, and within the next 2 days his Sodium was corrected, based on the labs, with a rate of not faster than 10 meq/day. Eventually, his renal function improved. Despite initial resistance he eventually agreed with an oncology consult. Today, he was noted to not moving his arms and legs when he is asked to do so and therefore Neurology was consulted. PAST MEDICAL HISTORY: As mentioned is significant for paranoid schizophrenia. No other clear past medical history is available at this time. ALLERGIES: No known drug allergies. FAMILY HISTORY: Unobtainable and not available at this time. SOCIAL HISTORY: The patient lives alone and has an adult services protective worker. REVIEW OF SYSTEMS: Complete review of systems was performed; however, the patient's interaction is limited due to his probably underlying schizophrenia as well as maybe increased altered mental status. PHYSICAL EXAM: Blood pressure 146/75, pulse rate 61, respiratory rate 15, O2 sat 100% on room air, and temperature 98. The patient looked somewhat cachectic. The patient is awake, but not oriented to time, place, or person. His answers are most of the time unintelligible and irrelevant. He follows commands. Pupils are symmetric and reactive to light. Face is symmetric. Tongue is in midline. Palate elevates upwards. Muscle bulk is decreased more in the upper extremities than lower. When asked to move his upper or lower extremities, he ddi not do that, but during the exam I observed him to have spontaneous movements in the arms and legs (but not antigravity). I elevated his arms off the bed and held it on top of my arm and then asked him to push his arm down and he gave me a full effort with encouragement and strength of 5/ 5. Then while holding his arm elevated, I put my other hand on top of his arm and asked him to push my hand toward the ceiling and again he gave me a full 5/ 5 strength. Then I placed his arm in a flexed position at the elbow and asked him to pull me, and then to push me away, and again strength was 5/5. 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 The same thing for the lower extremities; when I elevated his legs and held it off the bed he was able to pushes down on my hand with full force with a strength of 5/5 bilaterally. On sensory exam, his answers did not seem reliable as they were not consistent, but grossly seemed the pinprick and light touch were intact bilaterally. There was no sensory level in the trunk or back. Deep tendon reflexes were symmetric and 1+ in the upper extremities, 2+ in the knees and 1+ in Achilles. Babinski sign was present on the left, and mute on the right. Heart has regular rate and rhythm. Abdomen is soft and nontender. DIAGNOSTIC STUDIES/LAB DATA: Today, WBC 4.9, but on admission, it was 2.8; hemoglobin 8.8; hematocrit 26; platelets 290. Sodium today is 143 and it was 139 on the th and 129 on , and then on the , it was 119 at 1800. Potassium 3.1 on previous day and 3.6 today. BUN 27, creatinine 0.49. Lactic acid was not checked today. Calcium 8. Imaging: As mentioned, the studies of the CT of the abdomen and chest performed at [facility] as stated above. ASSESSMENT AND PLAN: The patient is a 70-year-old male with a history of paranoid schizophrenia who was admitted with probable altered mental status, renal failure, and rhabdomyolysis, which seems to be improving. His sodium was corrected not more than 10 mEq per L every 24 hours since admission. He has also pancytopenia and abdominal lymphadenopathy. Regarding a possible malignancy, an Oncology consult has been requested by the admitting hospitalist. Whether his decreased muscle mass is related to the differential diagnosis of presence of a malignancy in this patient is to be determined. Neurologically, as stated above, seems the patient is able to give full 5/5 strength bilaterally in the upper and lower extremities upon some maneuvers and encouragement. Deep tendon reflexes are present and symmetric, therefore a differential diagnosis such as Guillain-[place] syndrome is very unlikely. Also, I do not see any evidence of sensory level or myelopathy to be concerned about his spine. At this point, I do not see a clear neurological explanation for his decreased spontaneous movement of the extremities, and my suspicion is that it may probably be related to his psychological condition given. Repeated exam is needed in the future days to watch for any change (improvement or worsening) in the next few days. [id number]/[facility] #: [id number] BENITA
[2016-09-17] MEDS: ceFAZolin 2 GM PREMIX(*) 2 GM/50 ML BAG IVPB SCH (21:05)
[2016-09-17 23:03] LABS: Ferritin 228.2 ng/mL (24-336)
--- NOTE | 2016-09-17 23:36 | CONS ---
CONSULTATION REPORT: DATE OF CONSULTATION: REASON FOR CONSULTATION: Pancytopenia. HISTORY OF PRESENT ILLNESS: This is a 70-year-old male with a longstanding history of paranoid schizophrenia. He has been off medicine for an extended period of time, but taking herbal therapies, we do not have details. He has a supervisor case loading, who saw him 3 days prior to admission and he was doing well, at baseline. He was then not seen over the weekend and found Tuesday morning when he did not respond to a [employer] Whe[employer] visitor. EMS was called and he was on the ground covered in feces, urine, and garbage. He was brought to the [facility] where he was found to have rhabdomyolysis with elevated CK, sodium of 115, potassium of 6.8, and the normal white blood cell count on a CBC. Normal hemoglobin. CT of the brain showed a sinusitis and he had a CT of his chest that showed aspiration pneumonitis bilaterally as well as areas of atelectasis. Abdominal CT essentially unremarkable, no lymphadenopathy. He was brought to the [facility] ICU, placed on IV antibiotics and fluid resuscitation. Since that time, his chemistries have essentially normalized. He had a CBC on 09/13/16 with a white count of 2.8, hemoglobin 11.3 , MCV 84, platelets 61,000, and his differential has 90 polys. His white count has remained essentially stable to increased over the last 4 days. However, his hemoglobin dropped from 11.3 to 8.8, MCV remained stable. RDW elevated at 17 and platelets have dropped from 61,000 to 29,000. Differential from 09/14 with early WBC precursors. We do not have any blood counts [place] [facility] [place] prior to 09/13/16. Albumin is 3.3 today. Hematology was consulted for progressive pancytopenia. His mental status has remained stable during the hospitalization, he has been cooperative, but had a severely limited capacity at this time. 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 PAST MEDICAL HISTORY: Paranoid schizophrenia. MEDICATIONS: Not taking any prescription medicines at home, was on herbs, we do not have details. FAMILY HISTORY: Not obtainable. SOCIAL HISTORY: He has an adult protective worker, telephone number #[phone]. He lives alone and independently. REVIEW OF SYSTEMS: He is pleasant, denies pain, denies shortness of breath. He is eating dinner. Otherwise, unobtainable. PHYSICAL EXAMINATION: Temperature 98.0, BP 147/63, pulse 53, respirations 14. HEENT: Mucosa moist. No lesions. He has some skin lesions with cream on his face. No cervical or supraclavicular lymphadenopathy. No JVD. Lungs: Decreased breath sounds, clear on my exam at this moment. I only listened anteriorly. It is hard to get him sitting up. Heart: Regular rhythm. S1, S2. No murmur, rubs, or gallops. Abdomen: Nontender, nondistended. He has got no splenomegaly. No peripheral lymphadenopathy. Extremities: Warm, some leg atrophy, trace edema. Neurologic: As above, exam otherwise deferred. LABORATORY DATA/DIAGNOSTIC STUDIES: CT of the abdomen was reviewed with the lung bases, could not load CT scan of chest. He had bilateral infiltrate consistent with aspiration and the abdominal CT showed normal size spleen, some cystic lesions in the liver that are likely benign. No clear lymphadenopathy, it was a noncontrast study. Blood film: He still has some toxic granulation on the white cells, normal differential and no blasts on today blood film.. There are bands. Red blood cell morphology shows scattered schistocytes, otherwise normal. There are some reticulocytes. Platelets are not clumped, small to normal size. ASSESSMENT AND PLAN: A 70-year-old with history of schizophrenia. He was admitted with pneumonia and now he was found to have pancytopenia. Differential diagnosis includes affect of Zosyn, could be consumptive with some underlying marrow insufficiency, infiltrative disease is possible, could be immune process or B12 deficiency, but both less likely. I do not see dysplasia on the peripheral blood today. 1. We will send serum protein electrophoresis, B12, and I would like to send a reticulocyte count. The reticulocyte count will be increased if it is a consumptive process. 2. Consider changing from Zosyn to a [id number] antibiotic, Levaquin and Flagyl may be an option. 3. Transfuse platelets under 20 barring bleeding and hemoglobin under 8. 4. We will follow CBC daily. Possible bone marrow biopsy on Tuesday if his cytopenia is worsened rule out MDS or primary marrow process. 5. On Tuesday, we will try to get old blood work from [facility] to see what his baseline counts are. [id number]/[facility] #: [id number] BENITA
[2016-09-18] MEDS: ceFAZolin 2 GM PREMIX(*) 2 GM/50 ML BAG IVPB SCH ×2 (06:27→13:14)
[2016-09-18] MEDS: Collagenase 250 MG/GM OINT* 30 GM TOPICAL SCH (10:51)
--- NOTE | 2016-09-18 13:41 | PN ---
Subjective Date of Service: 09/18/16 Interval History: Pt is feeling ok but upset that he still can not use his arms. He denies any pain at this time. Objective Active Medications: Acetaminophen (Tylenol Tab*) 650 mg PO Q6H PRN PRN Reason: Pain/fever Last Admin: 09/15/16 19:38 Dose: 650 mg Collagenase (Santyl 250 Mg/Gm Oint*) 1 applic TOPICAL DAILY [facility] Last Admin: 09/18/16 10:51 Dose: 1 applic Levofloxacin/Dextrose (Levaquin 500 Mg Ivpremix(*)) 500 mg in 100 mls @ 100 mls /hr IVPB Q24H [facility] Metronidazole (Flagyl Tab*) 500 mg PO BID [facility] Vital Signs 09/17/16 09/17/16 09/17/16 13:48 15:37 21:13 Temperature Pulse Rate 58 Respiratory 16 19 17 Rate Blood Pressure 147/63 (mmHg) O2 Sat by Pulse Oximetry 09/17/16 09/18/16 09/18/16 23:20 07:00 08:00 Temperature 98.6 F Pulse Rate 85 87 Respiratory 18 20 20 Rate Blood Pressure 173/72 148/66 (mmHg) O2 Sat by Pulse 97 96 Oximetry Oxygen Devices in Use Now: Nasal Cannula - 3L-96% Appearance: Elderly male sitting up in bed, eating lunch, NAD Eyes: No Scleral Icterus Ears/Nose/Mouth/Throat: Mucous Membranes Moist Respiratory: Symmetrical Chest Expansion and Respiratory Effort, Clear to Auscultation Cardiovascular: NL Sounds; No Murmurs; No JVD, RRR, No Edema Abdominal: NL Sounds; No Tenderness; No Distention Extremities: No Clubbing, Cyanosis Skin: No Nodules or Sclerosis, - - ulcerations covered Neurological: - - oriented to place and situation Result Diagrams: 09/17/16 05:47 09/17/16 05:47 Microbiology and Other Data: Microbiology 09/13/16 17:15 Nasal Screen MRSA (PCR)([facility]) - Final Nasal Mrsa Negative Assess/Plan/Problems-Billing Ms Griggs is a 70 yo M who has a h/o untreated paranoid schizophrenia who was last seen on 09/10/16 by his transplant case manager then found down on the floor of his home on 09/13/16 and brought to [facility] where he was found to be in acute renal failure with urinary retention, mild rhabdomyolysis, with a markedly abnormal CBC and CT imaging that showed patchy bibasilar infiltrates and massive lymphadenopathy around the abdominal aorta. He was [place] [facility] [place] and treatment. - Patient Problems (1) Weakness Current Visit: Yes Status: Acute Code(s): R53.1 - WEAKNESS SNOMED Code(s) : 04270807 Comment: Pt has marked UE/LE weakness. Appreciate neurology evaluation. Dr. Jerome is concerned for cervical spine compression. Will get CT cervical spine and MRI of C spine. Place in cervical collar for now. Will need to continue PT/ OT once C spine evaluated. (2) Acute renal failure Current Visit: Yes Status: Acute Comment: Resolved. Keep smith in place due to urinary retention. (3) Hyponatremia Current Visit: Yes Status: Acute Code(s): E87.1 - HYPO-OSMOLALITY AND HYPONATREMIA SNOMED Code(s): 79047262 Comment: Resolved with hydration. (4) Urinary retention Current Visit: Yes Status: Acute Code(s): R33.9 - RETENTION OF URINE, UNSPECIFIED SNOMED Code(s): 324087701 Comment: Pt has significant urinary retention. Smith has been replaced and will remain in until seen by urology. (5) Rhabdomyolysis Current Visit: Yes Status: Acute Code(s): M62.82 - RHABDOMYOLYSIS SNOMED Code(s): 212059064 Comment: CPK elevation has resolved. Wounds to continue to be dressed with santyl and vaseline gauze. New skin breakdown on the coccyx. (6) Pancytopenia Current Visit: Yes Status: Acute Code(s): D61.818 - OTHER PANCYTOPENIA SNOMED Code(s): 781339259 Comment: Appreciate oncology eval. Will try to get old lab records from [place]. Changed from zosyn to levaquin/flagyl for aspiration pna. HIV negative. Possible bone marrow bx on 09/20/16. (7) Abdominal lymphadenopathy Current Visit: Yes Status: Acute Code(s): R59.0 - LOCALIZED ENLARGED LYMPH NODES SNOMED Code(s): 630077074 Comment: Will plan on CT with contrast in next couple days to better evaluate the adenopathy. (8) Aspiration pneumonia Current Visit: Yes Status: Acute Code(s): J69.0 - PNEUMONITIS DUE TO INHALATION OF FOOD AND VOMIT SNOMED Code(s): 685693855 Comment: No fever since evening of 09/15/16. Continue levaquin/flagyl for aspiration pneumonia. Today is D# 6 of therapy. He continues to have a SOFA score of 2-3 but overall is improving. (9) Hypoglycemia Current Visit: Yes Status: Acute Code(s): E16.2 - HYPOGLYCEMIA, UNSPECIFIED SNOMED Code(s): 507712530 Comment: Resolved. (10) Paranoid schizophrenia Current Visit: Yes Status: Acute Code(s): F20.0 - PARANOID SCHIZOPHRENIA SNOMED Code(s): 87697994 Comment: Haldol stopped secondary prolonged QT interval. Behaviorally he is doing well. (11) DVT prophylaxis Current Visit: Yes Status: Acute Code(s): EIX3509 - SNOMED Code(s): 967670659 Comment: SCDs (12) Full code status Current Visit: Yes Status: Acute Code(s): Z78.9 - OTHER SPECIFIED HEALTH STATUS SNOMED Code(s): 875875131
[2016-09-18] MEDS ORDERED: Senna TAB PO PRN (13:52)
[2016-09-18] MEDS ORDERED: Polyethylene Glycol 3350* 17 GM PACKET PO PRN (13:52)
[2016-09-18] MEDS ORDERED: Piperac/Tazob 3.375 gm in NS* 3.375 GM/100 ML BAG IVPB SCH (14:00)
[2016-09-18] MEDS ORDERED: metroNIDAZOLE TAB* 250 MG PO SCH (14:00)
[2016-09-18] MEDS ORDERED: Gadoteridol* (CONTRAST) 279.3 MG/ML 10 ML IV ONE (14:37)
--- NOTE | 2016-09-18 14:46 | RAD ---
INDICATION: Evaluate for spinal cord compression. COMPARISON: There are no prior studies available for comparison. TECHNIQUE: Contiguous axial sections were obtained from the skull base through the T2 vertebra. Images were reconstructed in the sagittal and coronal planes. FINDINGS: The vertebra are in normal alignment. No prevertebral soft tissue swelling or fracture is seen. There is calcification within the supraspinous ligament at the C6-C7 level. At the C2-C3 level there is mild posterior uncinate process spurring and mild hypertrophic changes within the facet joint on the left side. No significant spinal canal narrowing is present. There is mild neural foraminal narrowing on the right side and moderate to severe neural foraminal narrowing on the left side. At the C3-C4 level there is mild posterior lateral uncinate process spurring. There is moderate hypertrophic change within the right facet joint. There is mild spinal canal narrowing. There is mild neural foraminal narrowing on the left side and moderate neural foraminal narrowing on the right side. At the C4-C5 level there is mild posterior uncinate process spurring. There is mild spinal canal narrowing. There are moderate hypertrophic changes within the facet joints. There is mild to moderate neural foraminal narrowing on the right side and moderate to severe neural foraminal narrowing on the left side. At the C5-C6 level there is moderate posterior uncinate process spurring and moderate hypertrophic changes within the facet joints. There is moderate spinal canal narrowing. There is severe neural foraminal narrowing on the right side and moderate severe neural foraminal narrowing on the left side. At the C6-C7 level there is moderate posterior uncinate process spurring. There is mild to moderate spinal canal narrowing. There is moderate to severe neural foraminal narrowing on both sides. IMPRESSION: 1. NO EVIDENCE FOR FRACTURE OR SUBLUXATION. 2. MODERATE TO SEVERE CERVICAL SPONDYLOSIS.
--- NOTE | 2016-09-18 16:30 | RAD ---
INDICATION: Spinal cord compression bilateral arm and hand weakness. COMPARISON: Comparison is made with a prior CT of the cervical spine of the same day. TECHNIQUE: Axial T2 and sagittal T1 and T2 and coronal T2-weighted images of the cervical spine were obtained. In addition, axial and sagittal T1 weighted images were obtained following intravenous injection of 12 ml of ProHance nonionic contrast. FINDINGS: The vertebra are normal alignment. No significant focal osseous abnormality is seen. The craniocervical junction is within normal limits. At the C2-C3 level there is a small central disc protrusion. No significant spinal canal narrowing is present. There is mild neural foraminal narrowing on the right side and moderate neural foraminal narrowing on the left side. At the C3-C4 level there is posterior uncinate process spurring associated with a [id number] broad-based disc bulge. This causes mild spinal canal narrowing. There is moderate to severe neural foraminal narrowing on the right side and moderate neural foraminal narrowing on the left side. At the C4-C5 level there is posterior uncinate process spurring associated with a moderate broad-based disc bulge. There is moderate to severe spinal canal narrowing and mild spinal cord compression. There is moderate neural foraminal narrowing on the right side and moderate to severe neural foraminal narrowing on the left side. There is increased signal intensity present within the spinal cord present at the C4 vertebral body level and C4-C5 disc level. No enhancement is present. The cord does not appear enlarged. At the C5-C6 level there is a moderate central protrusion causing moderate spinal canal narrowing and mild spinal cord compression. There is moderate to severe neuroforaminal narrowing on the right side and moderate neuroforaminal narrowing on the left side. At the C6-C7 level there is bilateral posterolateral uncinate process spurring associated with a posterolateral disc protrusion on the left side causing mild spinal canal narrowing. There is moderate to severe bilateral neural foraminal narrowing. IMPRESSION: SEVERE CERVICAL SPONDYLOSIS WITH CHANGES MOST PROMINENT AT THE C4-C5 AND C5-C6 LEVELS. THERE IS SPINAL CORD COMPRESSION AT BOTH LEVELS MORE SEVERE AT THE C4-C5 LEVEL. THERE IS ALSO INCREASED SIGNAL INTENSITY WITHIN THE SPINAL CORD AT THE C4 AND C4-C5 LEVEL WITHOUT ENHANCEMENT MOST CONSISTENT WITH MYELOMALACIA OR CORD EDEMA. THERE IS MODERATE TO SEVERE NEURAL FORAMINAL NARROWING AT MULTIPLE LEVELS.
[2016-09-18] MEDS: Levofloxacin 500 MG IVPREMIX(* 500 MG/100 ML BAG IVPB SCH (16:39)
[2016-09-18] MEDS: Clindamycin 300 MG IVPREMIX(* 300 MG/50 ML SDV IV SCH ×2 (17:51→23:00)
--- NOTE | 2016-09-18 18:28 | CONSULT ---
Consult Consult: Neurosurgery Consult Date of consult: 09/18/16 Reason for consult: Cervical spondylosis HPI: This is a 70 year old male with past medical history significant for paranoid schizophrenia, who presented to the [place] ED and was transferred to the [facility] on 09/13/16 with renal failure, rhabdomyolysis, and altered mental status. He was found at his home on Tuesday on the floor for an unknown duration of time, he was last seen at his baseline function on Tuesday. He is unable to provide an accurate history. Currently, he is experiencing weakness of the bilateral upper extremities. Per previous consults and reports from this visit, the weakness has been present since arrival at the emergency department. He answers questions indirectly but denies headache, neck pain, chest pain, difficulty breathing, nausea and vomiting. He denies bilateral upper and lower extremity pain, numbness, and tingling. He states that he is unable to move his arms and complains of pain with movement. Past medical history: 1. Paranoid schizophrenia Allergies: No known allergies Home medications: None ROS: Full ROS completed; pertinent findings stated in HPI although difficult to assess secondary to patient's indirect responses and mental status. All others negative Physical Exam: Vital Signs: Temp Pulse Resp BP Pulse Ox 98.6 F 87 20 148/66 96 09/17/16 23:20 09/18/16 07:00 09/18/16 08:00 09/18/16 07:00 09/18/16 07:00 General: Frail elderly male. Alert and laying in bed. No distress. Complains of cervical collar. CV: Radial pulses equal. Pedal pulses palpable. Lungs: Breathing is nonlabored. Lungs are clear. Abdomen: NABS. Soft, nontender and nondistended. Neuro: Speech is clear although responses are indirect and irrelevant to question. He is able to follow commands. CNII-XII intact. Patient is unable to initiate movement of bilateral upper and lower extremities. When a limb is held and he is asked to resist, he is able to do so with 5/5 strength in upper and lower extremities. Back pain with strength testing on the lower extremities. Wrist and hand pain with strength testing of upper extremities. Social Services Director diminished bilaterally. DTR intact. Extremities: Swelling of the bilateral hands and wrists. Muscle wasting in upper and lower extremities. Imagin. MRI of cervical spine on 09/18/16 shows cervical spondylosis most pronounced at C4-5 and C5-6. Assessment: This is a 70 year old male admitted for multiple medical illnesses. Among other symptoms, he presented with bilateral upper extremity weakness. Physical exam reveals 5/5 strength throughout upper and lower extremities although the patient is unable to initiate upper extremity movement. Neuro intact. Cervical spine MRI reveals cervical spondylosis with likely cord compression. Plan: 1. The patient will likely need ACD F C4-5 and C5-6 when medically stable if symptoms persist. 2. No indication for urgent neurosurgical intervention. 3. No recommendation for treatment with steroids. 4. Cervical collar not necessary.
[2016-09-18 18:42] LABS: Hematocrit 27 % (42-52); Mean Corpuscular HGB Conc 33 g/dl (31-36); Mean Corpuscular Hemoglobin 29 pg (27-31); Mean Corpuscular Volume 87 fL (80-94); Mean Platelet Volume 8 um3 (7.4-10.4); Red Cell Distribution Width 17 % (10.5-15); White Blood Count 4.5 10^3/ul (3.5-10.8)
[2016-09-18 18:47] LABS: Add Diff/Slide Review? Slide Review Added; Comments Flag Yes
[2016-09-18 19:07] LABS: Albumin 2.3 g/dL (3.2-5.2); BUN/Creatinine Ratio 47.8 (8-20); Calcium 7.9 mg/dL (8.6-10.3); EGFR African American 232.1 (>60); EGFR Non-African American 180.5 (>60); Globulin 2.5 g/dL (2-4); Potassium 3.3 mmol/L (3.5-5.0); Total Bilirubin 0.4 mg/dL (0.2-1.0); Total Protein 4.8 g/dL (6.4-8.9)
[2016-09-18] MEDS: Docusate CAP* 100 MG PO SCH (22:00)
--- NOTE | 2016-09-18 22:17 | PN ---
NEUROLOGY FOLLOWUP NOTE: DATE OF FOLLOWUP: 09/18/16 HOSPITALIST: Yamile Palacios DO LOCATION: He is an inpatient in [facility]. CHIEF COMPLAINT: Weakness. INTERVAL HISTORY: Since yesterday, Mr. Griggs is still not moving his limbs according to his nurse, Yolis, and in discussion with Dr. Palacios. He is pleasant and cooperative, but very tangential. Wit h specific questions, he admits to "some" neck pain. He has had numerous falls at home. He admits to a sense of numbness and tingling in his hands and feet. He denies any pain in his limbs. He com plains of not being able to urinate. He has a Hemphill catheter in. MEDICATIONS: Reviewed and he is currently just receiving cefazolin 2 g IV q.8 hours. PHYSICAL EXAMINATION: Last temperature is 98.6 orally and he has been afebrile for at least 48 hour s, blood pressure is running 148/66 most recently, was up to 173/72 earlier, heart rate is steady in the 80s, respirations 20, and oxygen saturation is 96% on 3 L nasal cannula. His cough is very weak. Palate and tongue move normally. His speech is soft. Facial musculature is symmetric and eye movements are normal. He has an abrasion in the left forehead. I did not test h is neck range of motion. Motor exam reveals decreased muscle tone diffusely. There is no spasticity in any of the limbs. Re flexes are trace in the upper extremities and the knees and absent at the ankles. He has bilateral Babinski signs. On motor exam, he has trace movement of both legs proximally and he can wiggle his toes back and for th, but not with full range of motion in both feet. In the upper extremity, he has very weak sales representative door to door i n both hands and cannot make a fist in either. He has edema in both hands. He has trace biceps cont raction and he has grade 3 triceps strength bilaterally. Pin discrimination is absent in the right leg and right arm, but present in both hands. It is absen t in both feet. I cannot appreciate vibration in either leg. He is alert and tangential talking about [facility] being converted to a terrorist [employer] organization. DIAGNOSTIC STUDIES/LAB DATA: Reportedly, he had a CT scan of the cervical spine at [facility], but in speaking with Dr. Palacios, there is no evidence of that has been done. Laboratories done here most recently notable for chemistries with a sodium up to 143, where it was 1 19 on the , 122 on the , 125 later on the , and 129 by 5:30 on 09/14/16. It has been no rmal since. His creatinine today is 0.49 and BUN is a little bit up at 27. Calcium is low at 8.0 y esterday with an albumin at 2.3. Vitamin B12 level was elevated at 1450 hours. CK on 09/16/16 was 117, down from 1374 on 09/13/16. CBC is reviewed. His hemoglobin is down to 8.8 and platelet count down to 29,000 as of yesterday morning. White blood cell count is up to 4.9 with lymphopenia. I am concerned that Mr. Araujo may have a cervical myelopathy either from trauma or possibly tiny silvana by malignancy. He needs an MRI scan of his cervical spine and also we will go ahead and get a CT of the cervical spine. I spoke with Dr. Rodrick Ocampo. He has agreed to call the MRI team in. I spoke with Dr. Palacios who will put a neck brace on him until we get further neuro imaging. I will continue to follow along. [id number]/[facility] #: [id number]
[2016-09-19] MEDS: Clindamycin 300 MG IVPREMIX(* 300 MG/50 ML SDV IV SCH ×4 (05:27→22:54)
[2016-09-19 06:06] LABS: BUN/Creatinine Ratio 54.5 (8-20); Comments Flag Yes; EGFR African American 340.5 (>60); EGFR Non-African American 264.8 (>60); Hematocrit 28 % (42-52); Hemoglobin 9.2 g/dl (14.0-18.0); Mean Corpuscular HGB Conc 33 g/dl (31-36); Mean Corpuscular Hemoglobin 28 pg (27-31); Mean Corpuscular Volume 86 fL (80-94); Mean Platelet Volume 8 um3 (7.4-10.4); Potassium 3.6 mmol/L (3.5-5.0); Red Blood Count 3.28 10^6/ul (4.0-5.4); Red Cell Distribution Width 17 % (10.5-15)
[2016-09-19] MEDS: Docusate CAP* 100 MG PO SCH ×2 (08:57→20:48)
[2016-09-19] MEDS: Collagenase 250 MG/GM OINT* 30 GM TOPICAL SCH (09:16)
--- NOTE | 2016-09-19 10:53 | PN ---
Progress Note - Progress Note SOAP: Subjective: [Cervical spondylosis with weakness and swelling of bilateral upper extremities. Movement of upper extremities improving. Swelling of bilateral hands persists. No complaints of pain this morning. ] Objective: [ Vital Signs: Temp Pulse Resp BP Pulse Ox 97.7 F 79 18 168/79 100 09/18/16 23:33 09/18/16 23:33 09/19/16 08:00 09/18/16 23:33 09/18/16 23:33 General: Frail. Resting in bed. No distress. Neuro: Able to hold upper extremities up against gravity for 1-2 seconds. Strength 5/5 in upper and lower extremities when facilitated by provider. Patient does not initiate movement. No pain with strength testing. Sensation intact. Extremities: Bilateral hand edema. ] Assessment: [Neuro intact and stable.] Plan: [1. No surgical intervention at this time. ]
[2016-09-19] MEDS ORDERED: Haloperidol INJ IV/IM* 5 MG/ML AMP IV SLOW PU PRN (11:38)
--- NOTE | 2016-09-19 11:45 | PN ---
Subjective Date of Service: 09/19/16 Interval History: Pt denies any pain. No SOB. He is upset that he is on what he believes is the sub floor of the 4th floor and he believes he needs to be on the 4th floor (the top floor) to be with his family. He states he is only on the sub floor because of the [place]ians. Earlier today he was insistent that he could walk to the bathroom. Staff tried to get him up to a bedside commode but he was unable to bear weight. He became very angry and yelling at staff. Objective Active Medications: Acetaminophen (Tylenol Tab*) 650 mg PO Q6H PRN PRN Reason: Pain/fever Last Admin: 09/15/16 19:38 Dose: 650 mg Collagenase (Santyl 250 Mg/Gm Oint*) 1 applic TOPICAL DAILY [facility] Last Admin: 09/19/16 09:16 Dose: 1 applic Docusate Sodium (Colace Cap*) 100 mg PO BID [facility] Last Admin: 09/19/16 08:57 Dose: 100 mg Levofloxacin/Dextrose (Levaquin 500 Mg Ivpremix(*)) 500 mg in 100 mls @ 100 mls /hr IVPB Q24H [facility] Last Admin: 09/18/16 16:39 Dose: 100 mls/hr Clindamycin HCl/Dextrose (Cleocin 300 Mg Ivpemix(*)) 300 mg in 50 mls @ 200 mls /hr IV Q6H [facility] Last Admin: 09/19/16 10:35 Dose: 200 mls/hr Polyethylene Glycol/Electrolytes (Miralax*) 17 gm PO DAILY PRN PRN Reason: CONSTIPATION Last Admin: 09/19/16 08:58 Dose: 17 gm Senna (Senokot Tab*) 1 tab PO BEDTIME PRN PRN Reason: CONSTIPATION Last Admin: 09/19/16 08:57 Dose: 1 tab Vital Signs 09/18/16 09/18/16 09/18/16 17:06 20:00 23:33 Temperature 98.4 F 97.7 F Pulse Rate 77 79 Respiratory 18 20 20 Rate Blood Pressure 152/71 168/79 (mmHg) O2 Sat by Pulse 100 100 Oximetry 09/19/16 08:00 Temperature Pulse Rate Respiratory 18 Rate Blood Pressure (mmHg) O2 Sat by Pulse Oximetry Oxygen Devices in Use Now: Nasal Cannula - 1L-100% Appearance: Elderly male lying in bed, NAD Eyes: No Scleral Icterus Ears/Nose/Mouth/Throat: Mucous Membranes Moist Respiratory: Symmetrical Chest Expansion and Respiratory Effort, Clear to Auscultation - anteriorly Cardiovascular: NL Sounds; No Murmurs; No JVD, RRR, No Edema Abdominal: NL Sounds; No Tenderness; No Distention Extremities: No Clubbing, Cyanosis Skin: No Nodules or Sclerosis Neurological: - - alert, delusional, B/L wrist drop, pt is able to supinate his arms, if I flex him at his elbow he can activate his triceps and resist, he can slightly resist with the biceps, he can wiggle his toes Result Diagrams: 09/19/16 05:02 09/19/16 05:02 Microbiology and Other Data: Microbiology 09/13/16 17:15 Nasal Screen MRSA (PCR)([facility]) - Final Nasal Mrsa Negative Assess/Plan/Problems-Billing Ms Griggs is a 70 yo M who has a h/o untreated paranoid schizophrenia who was last seen on 09/10/16 by his machine adjuster leader case trim then found down on the floor of his home on 09/13/16 and brought to [facility] where he was found to be in acute renal failure with urinary retention, mild rhabdomyolysis, with a markedly abnormal CBC and CT imaging that showed patchy bibasilar infiltrates and massive lymphadenopathy around the abdominal aorta. He was transferred to [facility] [place] for further evaluation and treatment. - Patient Problems (1) Staphylococcus aureus bacteremia Current Visit: Yes Status: Acute Code(s): R78.81 - BACTEREMIA SNOMED Code( s): 571680891 Comment: The patient' has 1 of 4 bottles positive for S aureus. Repeat blood cultures obtained today. Continue clindamycin. Plan for echo tomorrow. ID consult tomorrow. (2) Weakness Current Visit: Yes Status: Acute Code(s): R53.1 - WEAKNESS SNOMED Code(s) : 97379958 Comment: MRI C-spine shows cord compression with possible cord edema. Neurosurgery PA saw the patient, discussed the case with Dr. Lewis. At this time no plan for surgery. No indication for steroids. Will continue to monitor for improvement in his abilitly to move his limbs. Continue PT/OT. (3) Acute renal failure Current Visit: Yes Status: Acute Comment: Resolved. Keep smith in place due to urinary retention. (4) Hyponatremia Current Visit: Yes Status: Acute Code(s): E87.1 - HYPO-OSMOLALITY AND HYPONATREMIA SNOMED Code(s): 13476695 Comment: Resolved with hydration. (5) Urinary retention Current Visit: Yes Status: Acute Code(s): R33.9 - RETENTION OF URINE, UNSPECIFIED SNOMED Code(s): 846749696 Comment: Pt has significant urinary retention. Smith has been replaced and will remain in until seen by urology. (6) Rhabdomyolysis Current Visit: Yes Status: Acute Code(s): M62.82 - RHABDOMYOLYSIS SNOMED Code(s): 083379487 Comment: CPK elevation has resolved. Wounds to continue to be dressed with santyl and vaseline gauze. New skin breakdown on the coccyx. (7) Pancytopenia Current Visit: Yes Status: Acute Code(s): D61.818 - OTHER PANCYTOPENIA SNOMED Code(s): 729791066 Comment: Thrombocytopenia is slightly better. Continue to follow counts. (8) Abdominal lymphadenopathy Current Visit: Yes Status: Acute Code(s): R59.0 - LOCALIZED ENLARGED LYMPH NODES SNOMED Code(s): 142133731 Comment: Will plan on CT with contrast in next couple days to better evaluate the adenopathy. (9) Aspiration pneumonia Current Visit: Yes Status: Acute Code(s): J69.0 - PNEUMONITIS DUE TO INHALATION OF FOOD AND VOMIT SNOMED Code(s): 478977194 Comment: Today is D#6 of therapy for aspiration pna. Stop levaquin after today's dose (will continue clindamycin given the S aureus bacteremia). (10) Hypoglycemia Current Visit: Yes Status: Acute Code(s): E16.2 - HYPOGLYCEMIA, UNSPECIFIED SNOMED Code(s): 646645537 Comment: Resolved. (11) Paranoid schizophrenia Current Visit: Yes Status: Acute Code(s): F20.0 - PARANOID SCHIZOPHRENIA SNOMED Code(s): 79721196 Comment: Start back prn haldol-pt is more delusion and agitated at times. (12) DVT prophylaxis Current Visit: Yes Status: Acute Code(s): HKH2898 - SNOMED Code(s): 290920162 Comment: SCDs (13) Full code status Current Visit: Yes Status: Acute Code(s): Z78.9 - OTHER SPECIFIED HEALTH STATUS SNOMED Code(s): 508884795
[2016-09-19] MEDS: Levofloxacin 500 MG IVPREMIX(* 500 MG/100 ML BAG IVPB SCH (14:19)
--- NOTE | 2016-09-19 22:04 | CONS ---
NEUROLOGY CONSULTATION: DATE OF CONSULT: 09/19/16 LOCATION: Inpatient room 404. HOSPITALIST: Dr. Palacios. CHIEF COMPLAINT: Weakness. INTERVAL HISTORY: Since yesterday, Mr. Griggs has been pretty psychotic, reading other peoples notes and talking with them today. He insists on going to the "top floor" so he can "be with his family." He seems to believe that there is another floor that he is being denied transfer to and that family members are there. It did not sound like he is actually talking about going to [facility], but actually a physical additional top floor. It is hard to get him to cooperate for strength testing, but he says that he cannot use his hands. Reviewed consult notes from Neida Ortega of Neurosurgery in her followup today. I reviewed his MRI of the cervical spine, which reveals evidence of cervical cord compression particularly at C4-C5 where there appears to be some edema. There is no enhancement and there is no evidence of malignancy, but rather it appears to be compression and I suspect perhaps a degree of trauma given his evidence of head injury. Additional laboratory studies include a CBC today, which is fairly stable with a hemoglobin at 28 and a platelet count at 39,000. White blood cell count is 4.0. A reticulocyte count is not elevated. Chemistries today pretty stable overall. A vitamin B12 level on the was greater than 1450. PHYSICAL EXAMINATION: On examination, he is quite thin. Temperature 97.7, blood pressure 168/79, heart rate 80 and regular, respirations 18. Cough is weak. He has healing abrasions over his left eye and on his occiput. Neurologically, he has diminished tone diffusely. He has some extension of his left leg when he coughs. I cannot get him to move his arms other than shrug his shoulders, and he says he is "not going to go there" unless he gets moved to the floor that he believes exists. IMPRESSION: Cervical myelopathy from stenosis and possible trauma. His psychosis interferes with his ability to adequately assess him. I will discuss the situation with Dr. Palacios. Perhaps we should get Psychiatry to weigh in again as to his competence in this setting. I would like to discuss this case with Dr. Lewis as well. Steroids will probably not be of benefit this far out if indeed there was a component of trauma. CC: Bal Lewis MD* [id number]/[facility] #: [id number] [facility]ITALMarie
[2016-09-20] MEDS: Clindamycin 300 MG IVPREMIX(* 300 MG/50 ML SDV IV SCH ×4 (03:27→21:00)
[2016-09-20] MEDS: Docusate CAP* 100 MG PO SCH ×3 (10:10→21:03)
--- NOTE | 2016-09-20 10:23 | PN ---
Subjective Date of Service: 09/20/16 Interval History: Pt is very agitated this AM. He is demanding food that he cooked yesterday. He did allow the echo to be done. He denies any pain. He notices his R arm is stronger today. Objective Active Medications: Acetaminophen (Tylenol Tab*) 650 mg PO Q6H PRN PRN Reason: Pain/fever Last Admin: 09/15/16 19:38 Dose: 650 mg Collagenase (Santyl 250 Mg/Gm Oint*) 1 applic TOPICAL DAILY [facility] Last Admin: 09/19/16 09:16 Dose: 1 applic Docusate Sodium (Colace Cap*) 100 mg PO BID [facility] Last Admin: 09/20/16 10:10 Dose: 100 mg Haloperidol Lactate (Haldol Inj Iv/Im*) 0.5 mg IV SLOW PU Q6H PRN PRN Reason: AGITATION Last Admin: 09/19/16 17:36 Dose: 0.5 mg Levofloxacin/Dextrose (Levaquin 500 Mg Ivpremix(*)) 500 mg in 100 mls @ 100 mls /hr IVPB Q24H [facility] Last Admin: 09/19/16 14:19 Dose: 100 mls/hr Clindamycin HCl/Dextrose (Cleocin 300 Mg Ivpemix(*)) 300 mg in 50 mls @ 200 mls /hr IV Q6H [facility] Last Admin: 09/20/16 10:02 Dose: 200 mls/hr Polyethylene Glycol/Electrolytes (Miralax*) 17 gm PO DAILY PRN PRN Reason: CONSTIPATION Last Admin: 09/19/16 08:58 Dose: 17 gm Senna (Senokot Tab*) 1 tab PO BEDTIME PRN PRN Reason: CONSTIPATION Last Admin: 09/19/16 08:57 Dose: 1 tab Vital Signs 09/19/16 09/19/16 09/19/16 15:29 20:00 23:38 Temperature 97.3 F Pulse Rate 75 70 Respiratory 20 14 18 Rate Blood Pressure 137/89 158/64 (mmHg) O2 Sat by Pulse 95 89 Oximetry 09/20/16 09/20/16 07:23 08:00 Temperature Pulse Rate 71 Respiratory 16 16 Rate Blood Pressure 159/79 (mmHg) O2 Sat by Pulse 100 Oximetry Oxygen Devices in Use Now: Nasal Cannula - 1L-100% Appearance: Elderly cachectic male lying in bed, NAD Eyes: No Scleral Icterus Ears/Nose/Mouth/Throat: Mucous Membranes Moist Respiratory: Symmetrical Chest Expansion and Respiratory Effort, Clear to Auscultation - diminished breath sounds in all lung wisdom Cardiovascular: NL Sounds; No Murmurs; No JVD, RRR, No Edema Abdominal: NL Sounds; No Tenderness; No Distention Extremities: No Clubbing, Cyanosis Skin: No Nodules or Sclerosis, - - ulcerations on back now with no eschar, shallow, yellow slough present Neurological: - - pt is now able to flex R arm at the elbow, still only with supination of the L arm Result Diagrams: 09/19/16 05:02 09/19/16 05:02 Microbiology and Other Data: Microbiology 09/13/16 17:15 Nasal Screen MRSA (PCR)([facility]INA) - Final Nasal Mrsa Negative Assess/Plan/Problems-Billing Ms Griggs is a 70 yo M who has a h/o untreated paranoid schizophrenia who was last seen on 09/10/16 by his heel caser then found down on the floor of his home on 09/13/16 and brought to [facility] where he was found to be in acute renal failure with urinary retention, mild rhabdomyolysis, with a markedly abnormal CBC and CT imaging that showed patchy bibasilar infiltrates and massive lymphadenopathy around the abdominal aorta. He was transferred to [facility] [place] for further evaluation and treatment. - Patient Problems (1) Staphylococcus aureus bacteremia Current Visit: Yes Status: Acute Code(s): R78.81 - BACTEREMIA SNOMED Code( s): 915934527 Comment: The patient' has 1 of 4 bottles positive for S aureus. Repeat blood cultures obtained today. Continue clindamycin. Echo and ID consult pending. I suspect the bacteremia came from one of the skin wounds. (2) Weakness Current Visit: Yes Status: Acute Code(s): R53.1 - WEAKNESS SNOMED Code(s) : 64255244 Comment: Pt with cervical myelopathy. Dr. Lewis does not believe the patient is a surgical candidate at this time. perhaps if his bacteremia, thrombocytopenia and mental status improve he would be a candidate for an anterior cervical discectomy. For now continue PT/OT. He is going to need STR. (3) Acute renal failure Current Visit: Yes Status: Acute Comment: Resolved. Keep smith in place due to urinary retention. (4) Hyponatremia Current Visit: Yes Status: Acute Code(s): E87.1 - HYPO-OSMOLALITY AND HYPONATREMIA SNOMED Code(s): 65225442 Comment: Resolved with hydration. (5) Urinary retention Current Visit: Yes Status: Acute Code(s): R33.9 - RETENTION OF URINE, UNSPECIFIED SNOMED Code(s): 577995642 Comment: Pt has significant urinary retention. Smith has been replaced and will remain in until seen by urology as outpatient. (6) Rhabdomyolysis Current Visit: Yes Status: Acute Code(s): M62.82 - RHABDOMYOLYSIS SNOMED Code(s): 543629470 Comment: Rhabdomyolysis has resolved. Pressure ulcerations on back continue to be treated with santyl, covered with vaseline gauze and ABD. Continue pressure relieving measures. (7) Pancytopenia Current Visit: Yes Status: Acute Code(s): D61.818 - OTHER PANCYTOPENIA SNOMED Code(s): 999562910 Comment: Thrombocytopenia is slightly better. Continue to follow counts. (8) Abdominal lymphadenopathy Current Visit: Yes Status: Acute Code(s): R59.0 - LOCALIZED ENLARGED LYMPH NODES SNOMED Code(s): 665155186 Comment: I would like to get a CT of the abd/pelvis with contrast to better evaluate however the patient is now much more paranoid and agitated. Will order and see if he will cooperate. (9) Aspiration pneumonia Current Visit: Yes Status: Acute Code(s): J69.0 - PNEUMONITIS DUE TO INHALATION OF FOOD AND VOMIT SNOMED Code(s): 050439486 Comment: The patient completed therapy for aspiration pna. (10) Hypoglycemia Current Visit: Yes Status: Acute Code(s): E16.2 - HYPOGLYCEMIA, UNSPECIFIED SNOMED Code(s): 470011358 Comment: Resolved. (11) Paranoid schizophrenia Current Visit: Yes Status: Acute Code(s): F20.0 - PARANOID SCHIZOPHRENIA SNOMED Code(s): 57226898 Comment: Start back prn haldol-pt is even more agitated and paranoid today. Continue to monitor. (12) DVT prophylaxis Current Visit: Yes Status: Acute Code(s): WML7983 - SNOMED Code(s): 889497301 Comment: SCDs (13) Full code status Current Visit: Yes Status: Acute Code(s): Z78.9 - OTHER SPECIFIED HEALTH STATUS SNOMED Code(s): 667148399
--- NOTE | 2016-09-20 10:29 | PN ---
Progress Note - Progress Note SOAP: Subjective: []Stable. Eating and in good spirits, no distress. Denies pain. Acetaminophen (Tylenol Tab*) 650 mg PO Q6H PRN PRN Reason: Pain/fever Last Admin: 09/15/16 19:38 Dose: 650 mg Collagenase (Santyl 250 Mg/Gm Oint*) 1 applic TOPICAL DAILY [facility] Last Admin: 09/19/16 09:16 Dose: 1 applic Docusate Sodium (Colace Cap*) 100 mg PO BID [facility] Last Admin: 09/20/16 10:10 Dose: 100 mg Haloperidol Lactate (Haldol Inj Iv/Im*) 0.5 mg IV SLOW PU Q6H PRN PRN Reason: AGITATION Last Admin: 09/19/16 17:36 Dose: 0.5 mg Levofloxacin/Dextrose (Levaquin 500 Mg Ivpremix(*)) 500 mg in 100 mls @ 100 mls /hr IVPB Q24H [facility] Last Admin: 09/19/16 14:19 Dose: 100 mls/hr Clindamycin HCl/Dextrose (Cleocin 300 Mg Ivpemix(*)) 300 mg in 50 mls @ 200 mls /hr IV Q6H [facility] Last Admin: 09/20/16 10:02 Dose: 200 mls/hr Polyethylene Glycol/Electrolytes (Miralax*) 17 gm PO DAILY PRN PRN Reason: CONSTIPATION Last Admin: 09/19/16 08:58 Dose: 17 gm Senna (Senokot Tab*) 1 tab PO BEDTIME PRN PRN Reason: CONSTIPATION Last Admin: 09/19/16 08:57 Dose: 1 tab Objective: [] Vital Signs Temp Pulse Resp BP Pulse Ox 97.3 F 71 16 159/79 100 09/19/16 15:29 09/20/16 07:23 09/20/16 08:00 09/20/16 07:23 09/20/16 07:23 HEENT: mucosa moist LAD - no peripheral LAD ABD - no spleen, no liver Ext tr edema, good pules and warm Iron studies WNL B12 elevated LDH mild elevation, UA normal CBC with slow recovery Blood film, slight left shift, no dysplasia. Assessment: []70 year old with pancytopenia in setting of sever infection. Suspect consumptive, no clear evidence of marrow dysfunction at this time. I willing he should have follow up CBC after discharge, 2-3 weeks. If continued cytopenia would consider further studies. His willingness to treat an underlying bone marrow process may limit the utility of invasive testing. Plan: []1. CBC daily during stay 2. No further evaluation at this time unless blood counts decrease further. 3. Would benefit from follow up after discharge.
--- NOTE | 2016-09-20 11:10 | ECHO ---
Patient: SOURAV EVANS [facility] Rec#: [id number] : 1945 Date: 09/20/2016 Age: 70y Height: 170.18 cm / 67.0 in Weight: 58.51 kg / 129.0 lbs Sex: M BSA: 1.68 Room#: 404 Admit Date#: 09/13/2016 Type: Inpatient Referring: Yamile Palacios DO Reading: Vitaliy Montgomery MD Jv Baseball Coach: Uma Sullivan RN RDCS Jv Baseball Coach: Belgica Hodgson CC: Ghanshyam Hawkins MD Transthoracic Echocardiogram Indication: Staph Bacteremia BP: 158/64 HR: 62 Rhythm: NSR Findings History: Positive blood cultures Staph aureus 09/15/16, mental health history, acute renal failure, pneumonia, rhabdomyelosis, cervical spine compression. Technical Comments: The study quality is excellent. The study is technically limited due to poor parasternal windows. Left Ventricle: The left ventricular chamber size is decreased. Mild global hypokinesis of the left ventricle is observed. There is mildly decreased left ventricular systolic function. The estimated ejection fraction is 40-45%. There is no consistent Doppler evidence of clinically significant diastolic dysfunction. Left Atrium: The left atrium is moderate to severely dilated. Right Ventricle: Moderator Band present. The right ventricular cavity size is normal. The right ventricular global systolic function is mildly reduced. Right Atrium: The right atrium is mildly dilated. Aortic Valve: The aortic valve is trileaflet. The aortic valve leaflets are mildly thickened. There is no evidence of aortic regurgitation. There is no evidence of aortic stenosis. There is no aortic vegetation present. Mitral Valve: The mitral valve leaflets are mildly thickened. There is mild mitral regurgitation. There is no evidence of mitral stenosis. No vegetation is observed on the mitral valve. Tricuspid Valve: The tricuspid valve leaflets are mildly thickened. There is mild tricuspid regurgitation. No pulmonary hypertension is noted. There is no tricuspid stenosis. No vegetation is observed on the tricuspid valve. Pulmonic Valve: The pulmonic valve appears normal. There is a trace pulmonic regurgitation. There is no pulmonic stenosis. No vegetation is observed on the pulmonic valve. Pericardium: There is a small pericardial effusion. There are no signs of significant hemodynamic compromise. A left pleural effusion is present. Aorta: The ascending aorta is not well visualized. There is no dilatation of the aortic arch. There is no dilation of the aortic root. Pulmonary Artery: The main pulmonary artery appears normal. Venous: The inferior vena cava appears normal in size. There is a greater than 50% respiratory change in the inferior vena cava dimension. Conclusions The study quality is excellent. Mild global hypokinesis of the left ventricle is observed. There is mildly decreased left ventricular systolic function. The estimated ejection fraction is 40-45%. The right ventricular cavity size is normal. The right ventricular global systolic function is mildly reduced. The aortic valve is trileaflet. The aortic valve leaflets are mildly thickened. There is no aortic vegetation present. The mitral valve leaflets are mildly thickened. There is mild mitral regurgitation. No vegetation is observed on the mitral valve. There is mild tricuspid regurgitation. No vegetation is observed on the tricuspid valve. There is a trace pulmonic regurgitation. No vegetation is observed on the pulmonic valve. There is a small pericardial effusion. A left pleural effusion is present. The ascending aorta is not well visualized. Measurements Name Value Normal Range RVDdMajor (2D) 3.2 cm (2.2 - 4.4) RAd ISD 4CH 5.2 cm (3.4 - 4.9) RA (A4C)W 4 cm (2.9 - 4.6) IVSd (2D) 0.8 cm (0.6 - 1) LVPWd (2D) 0.7 cm (0.6 - 1) LVIDd (2D) 3.5 cm (3.6 - 5.4) LVIDs (2D) 3.2 cm - LV FS (2D) 9 % (25 - 45) Aortic Annulus 1.7 cm (1.4 - 2.6) Ao root diameter (2D) 3 cm (2.1 - 3.5) Aortic arch 2.3 cm (1.8 - 3.4) LA dimension (AP) 2D 3.4 cm (2.3 - 3.8) LAd ISD 4CH 4.2 cm (2.9 - 5.3) LA ISD 4CH W 4.9 cm (2.5 - 4.5) Name Value Normal Range LA ESV SP 4CH (A/L) 65 ml - LA ESV SP 2CH (A/L) 86 ml - LA ESV BP (A/L) 79 ml - LA ESV BP (A/L) index 47.24 ml/m2 - LA ESV SP 4CH (MOD) 50 ml - LA ESV SP 2CH (MOD) 70 ml - Name Value Normal Range MV E-wave Vmax 0.6 m/sec - MV deceleration time 212 msec - MV A-wave Vmax 0.6 m/sec - MV E:A ratio 1 ratio - LV septal e' Vmax 0.07 m/sec - LV lateral e' Vmax 0.09 m/sec - LV E:e' septal ratio 8.57 ratio - LV E:e' lateral ratio 6.66 ratio - Name Value Normal Range AV Vmax 1.1 m/sec - AV VTI 25 cm - AV peak gradient 5.1 mmHg - AV mean gradient 2.78 mmHg - LVOT Vmax 0.9 m/sec - LVOT VTI 18.34 cm - LVOT peak gradient 3.25 mmHg - LVOT mean gradient 1.22 mmHg - LUCÍA Vmax 0.7 m/sec - Name Value Normal Range TR Vmax 2.5 m/sec - TR peak gradient 25 mmHg - RAP 3 mmHg - RVSP 28 mmHg - IVC diameter 1.7 cm - Name Value Normal Range PV Vmax 0.6 m/sec - PV peak gradient 1.58 mmHg -
--- NOTE | 2016-09-20 11:33 | CONSULT ---
Identification - Patient Identification Reason for Psychiatric Consultation: Incapacitating Symptoms -: Patient is a 70 year old, M admitted on 09/13/16. History - Objective HPI: Discussed with Dr. Palacios today 09/20 Mr. Griggs has been agitated and irritable, seeming to have done much better with Haldol treatment. Dr. Tellez and I agreed resumed Haldol is appropriate, and risks justified based on incapacitating symptoms. Mr Griggs said "I am not ready to see a psychiatrist." He denies emotional pain , or conflicts with staff. His only question/concern was "you need to use natural treatments." Lab Results: Laboratory Tests 09/13/16 09/13/16 09/13/16 18:00 18:00 18:00 WBC RBC RBC (Retic) Hgb Hct HCT (Retic) MCV MCH MCHC RDW Plt Count MPV Immature Gran % (Auto) Neut % (Auto) Lymph % (Auto) Cannon % (Auto) Eos % (Auto) Baso % (Auto) Absolute Neuts (auto) Absolute Lymphs (auto) Absolute Monos (auto) Absolute Eos (auto) Absolute Basos (auto) Absolute Nucleated RBC Neutrophils % Band Neutrophils % Lymphocytes % Reactive Lymphs % Monocytes % Metamyelocytes % Myelocytes % Nucleated RBC % Platelet Morphology Normal RBC Morphology Basophilic Stippling Microcytosis Macrocytosis Spherocytes Ifeanyi Cells Retic Count, Calc Corrected Retic Count Retic Shift Factor Retic Production Index Immature Retic Fraction Mean Retic Volume Hem Pathologist Commnt INR (Anticoag Therapy) 1.25 H Sodium 119 L* Potassium 5.6 H Chloride 85 L Carbon Dioxide 24 Anion Gap TNP BUN 62 H Creatinine 1.96 H Est GFR ( Amer) 43.6 Est GFR (Non-Af Amer) 33.9 BUN/Creatinine Ratio 31.6 H Glucose 60 L Lactic Acid 1.6 Uric Acid Calcium 7.1 L Iron TIBC % Saturation Unsat Iron Binding Ferritin Total Bilirubin 0.80 AST 68 H ALT 38 Alkaline Phosphatase 55 Lactate Dehydrogenase Total Creatine Kinase 1374 H Troponin I 0.02 Total Protein 5.6 L Albumin 3.0 L Globulin 2.6 Albumin/Globulin Ratio 1.2 Vitamin B12 Urine Color Urine Appearance Urine pH Ur Specific [place] Urine Protein Urine Ketones Urine Blood Urine Nitrate Urine Bilirubin Urine Urobilinogen Ur Leukocyte Esterase Urine WBC (Auto) Urine RBC (Auto) Ur Squamous Epith Cells Urine Bacteria Hyaline Casts Ur Random Creatinine Ur Random Sodium Urine Glucose HIV 1&2 Antibody 09/13/16 09/13/16 09/13/16 18:45 21:17 21:17 WBC 2.8 L RBC 3.91 L RBC (Retic) Hgb 11.3 L Hct 33 L HCT (Retic) MCV 84 MCH 29 MCHC 35 RDW 17 H Plt Count 61 L MPV 9 Immature Gran % (Auto) 25 H Neut % (Auto) 89.8 H Lymph % (Auto) 1.3 L Cannon % (Auto) 7.1 Eos % (Auto) 1.5 Baso % (Auto) 0.3 Absolute Neuts (auto) 2.5 Absolute Lymphs (auto) 0 L Absolute Monos (auto) 0.2 Absolute Eos (auto) 0 Absolute Basos (auto) 0 Absolute Nucleated RBC 0.01 Neutrophils % 62 Band Neutrophils % 25 H Lymphocytes % 8 L Reactive Lymphs % Monocytes % 5 Metamyelocytes % Myelocytes % Nucleated RBC % 0.2 Platelet Morphology Normal RBC Morphology Not Reportable Basophilic Stippling Microcytosis 1+ Macrocytosis 1+ Spherocytes Raccoon Cells Retic Count, Calc Corrected Retic Count Retic Shift Factor Retic Production Index Immature Retic Fraction Mean Retic Volume Hem Pathologist Commnt INR (Anticoag Therapy) Sodium Potassium Chloride Carbon Dioxide Anion Gap BUN Creatinine Est GFR ( Amer) Est GFR (Non-Af Amer) BUN/Creatinine Ratio Glucose Lactic Acid Uric Acid Calcium Iron TIBC % Saturation Unsat Iron Binding Ferritin Total Bilirubin AST ALT Alkaline Phosphatase Lactate Dehydrogenase Total Creatine Kinase Troponin I Total Protein Albumin Globulin Albumin/Globulin Ratio Vitamin B12 Urine Color Yellow Urine Appearance Clear Urine pH 6.0 Ur Specific [place] 1.008 L Urine Protein 1+(30 mg/dl) H Urine Ketones Negative Urine Blood 3+ H Urine Nitrate Negative Urine Bilirubin Negative Urine Urobilinogen Negative Ur Leukocyte Esterase Negative Urine WBC (Auto) 1+(6-10/hpf) H Urine RBC (Auto) 3+(>10/hpf) H Ur Squamous Epith Cells Present H Urine Bacteria 1+ H Hyaline Casts Present H Ur Random Creatinine 23.20 Ur Random Sodium 37 Urine Glucose Negative HIV 1&2 Antibody 09/14/16 09/14/16 09/14/16 00:01 05:45 05:45 WBC 3.4 L RBC 3.88 L RBC (Retic) Hgb 11.1 L Hct 33 L HCT (Retic) MCV 84 MCH 29 MCHC 34 RDW 17 H Plt Count 62 L MPV 9 Immature Gran % (Auto) 40 H Neut % (Auto) Lymph % (Auto) Cannon % (Auto) Eos % (Auto) Baso % (Auto) Absolute Neuts (auto) 2.9 Absolute Lymphs (auto) 0.3 L Absolute Monos (auto) 0.2 Absolute Eos (auto) Not Reportable Absolute Basos (auto) Not Reportable Absolute Nucleated RBC Not Reportable Neutrophils % 46 Band Neutrophils % 25 H Lymphocytes % 6 L Reactive Lymphs % 3 Monocytes % 5 Metamyelocytes % 12 H Myelocytes % 3 H Nucleated RBC % Platelet Morphology Normal RBC Morphology Not Reportable Basophilic Stippling 1+ Microcytosis Macrocytosis Spherocytes Ifeanyi Cells 1+ Retic Count, Calc Corrected Retic Count Retic Shift Factor Retic Production Index Immature Retic Fraction Mean Retic Volume Hem Pathologist Commnt INR (Anticoag Therapy) Sodium 122 L 125 L Potassium 4.4 TNP Chloride 89 L 92 L Carbon Dioxide 24 24 Anion Gap 9 TNP BUN 56 H 49 H Creatinine 1.53 H 1.23 H Est GFR ( Amer) 58.0 74.6 Est GFR (Non-Af Amer) 45.1 58.0 BUN/Creatinine Ratio 36.6 H 39.8 H Glucose 50 L 92 Lactic Acid Uric Acid Calcium 7.3 L 7.2 L Iron TIBC % Saturation Unsat Iron Binding Ferritin Total Bilirubin 0.70 AST TNP ALT 34 Alkaline Phosphatase 48 Lactate Dehydrogenase Total Creatine Kinase 1092 H 958 H Troponin I Total Protein 4.9 L Albumin 2.5 L Globulin 2.4 Albumin/Globulin Ratio 1.0 Vitamin B12 Urine Color Urine Appearance Urine pH Ur Specific [place] Urine Protein Urine Ketones Urine Blood Urine Nitrate Urine Bilirubin Urine Urobilinogen Ur Leukocyte Esterase Urine WBC (Auto) Urine RBC (Auto) Ur Squamous Epith Cells Urine Bacteria Hyaline Casts Ur Random Creatinine Ur Random Sodium Urine Glucose HIV 1&2 Antibody 09/14/16 09/14/16 09/14/16 06:35 11:01 17:50 WBC RBC RBC (Retic) Hgb Hct HCT (Retic) MCV MCH MCHC RDW Plt Count MPV Immature Gran % (Auto) Neut % (Auto) Lymph % (Auto) Cannon % (Auto) Eos % (Auto) Baso % (Auto) Absolute Neuts (auto) Absolute Lymphs (auto) Absolute Monos (auto) Absolute Eos (auto) Absolute Basos (auto) Absolute Nucleated RBC Neutrophils % Band Neutrophils % Lymphocytes % Reactive Lymphs % Monocytes % Metamyelocytes % Myelocytes % Nucleated RBC % Platelet Morphology Normal RBC Morphology Basophilic Stippling Microcytosis Macrocytosis Spherocytes Ifeanyi Cells Retic Count, Calc Corrected Retic Count Retic Shift Factor Retic Production Index Immature Retic Fraction Mean Retic Volume Hem Pathologist Commnt INR (Anticoag Therapy) Sodium 129 L Potassium TNP 3.9 3.8 Chloride 96 L Carbon Dioxide 27 Anion Gap 6 BUN Creatinine Est GFR ( Amer) Est GFR (Non-Af Amer) BUN/Creatinine Ratio Glucose Lactic Acid Uric Acid Calcium Iron TIBC % Saturation Unsat Iron Binding Ferritin Total Bilirubin AST TNP 54 H ALT Alkaline Phosphatase Lactate Dehydrogenase Total Creatine Kinase Troponin I Total Protein Albumin Globulin Albumin/Globulin Ratio Vitamin B12 Urine Color Urine Appearance Urine pH Ur Specific [place] Urine Protein Urine Ketones Urine Blood Urine Nitrate Urine Bilirubin Urine Urobilinogen Ur Leukocyte Esterase Urine WBC (Auto) Urine RBC (Auto) Ur Squamous Epith Cells Urine Bacteria Hyaline Casts Ur Random Creatinine Ur Random Sodium Urine Glucose HIV 1&2 Antibody 09/15/16 09/15/16 09/15/16 08:08 08:08 23:00 WBC 9.1 RBC 3.14 L RBC (Retic) Hgb 9.3 L Hct 26 L HCT (Retic) MCV 84 MCH 30 MCHC 35 RDW 17 H Plt Count 34 L MPV 8 Immature Gran % (Auto) 21 H Neut % (Auto) 94.5 H Lymph % (Auto) 2.8 L Cannon % (Auto) 2.6 Eos % (Auto) 0.1 Baso % (Auto) 0 Absolute Neuts (auto) 8.6 H Absolute Lymphs (auto) 0.3 L Absolute Monos (auto) 0.2 Absolute Eos (auto) 0 Absolute Basos (auto) 0 Absolute Nucleated RBC 0 Neutrophils % 68 Band Neutrophils % 21 H Lymphocytes % 4 L Reactive Lymphs % 1 Monocytes % 6 Metamyelocytes % Myelocytes % Nucleated RBC % 0 Platelet Morphology Large Normal RBC Morphology Not Reportable Basophilic Stippling Microcytosis Macrocytosis Spherocytes 2+ Raccoon Cells Retic Count, Calc Corrected Retic Count Retic Shift Factor Retic Production Index Immature Retic Fraction Mean Retic Volume Hem Pathologist Commnt INR (Anticoag Therapy) Sodium 133 Potassium 3.1 L Chloride 101 Carbon Dioxide 28 Anion Gap 4 BUN 32 H Creatinine 0.68 Est GFR ( Amer) 147.8 Est GFR (Non-Af Amer) 115.0 BUN/Creatinine Ratio 47.1 H Glucose 110 H Lactic Acid Uric Acid Calcium 8.0 L Iron TIBC % Saturation Unsat Iron Binding Ferritin Total Bilirubin AST ALT Alkaline Phosphatase Lactate Dehydrogenase Total Creatine Kinase Troponin I Total Protein Albumin Globulin Albumin/Globulin Ratio Vitamin B12 Urine Color Yellow Urine Appearance Clear Urine pH 5.0 Ur Specific [place] 1.016 Urine Protein 1+(30 mg/dl) H Urine Ketones Negative Urine Blood 2+ H Urine Nitrate Negative Urine Bilirubin Negative Urine Urobilinogen Negative Ur Leukocyte Esterase Negative Urine WBC (Auto) Absent Urine RBC (Auto) 3+(>10/hpf) H Ur Squamous Epith Cells Present H Urine Bacteria Absent Hyaline Casts Ur Random Creatinine Ur Random Sodium Urine Glucose 1+(50 mg/dl) H HIV 1&2 Antibody 09/16/16 09/16/16 09/16/16 06:33 06:33 06:33 WBC 7.3 RBC 2.89 L RBC (Retic) Hgb 8.6 L Hct 25 L HCT (Retic) MCV 86 MCH 30 MCHC 35 RDW 17 H Plt Count 33 L MPV 8 Immature Gran % (Auto) Neut % (Auto) 92.0 H Lymph % (Auto) 3.5 L Cannon % (Auto) 3.9 Eos % (Auto) 0.1 Baso % (Auto) 0.5 Absolute Neuts (auto) 6.7 Absolute Lymphs (auto) 0.3 L Absolute Monos (auto) 0.3 Absolute Eos (auto) 0 Absolute Basos (auto) 0 Absolute Nucleated RBC 0.01 Neutrophils % Band Neutrophils % Lymphocytes % Reactive Lymphs % Monocytes % Metamyelocytes % Myelocytes % Nucleated RBC % 0.1 Platelet Morphology Normal RBC Morphology Basophilic Stippling Microcytosis Macrocytosis Spherocytes Ifeanyi Cells Retic Count, Calc Corrected Retic Count Retic Shift Factor Retic Production Index Immature Retic Fraction Mean Retic Volume Hem Pathologist Commnt INR (Anticoag Therapy) Sodium 139 Potassium 3.1 L Chloride 104 Carbon Dioxide 32 Anion Gap 3 BUN 34 H Creatinine 0.63 L Est GFR ( Amer) 161.5 Est GFR (Non-Af Amer) 125.5 BUN/Creatinine Ratio 54.0 H Glucose 123 H Lactic Acid Uric Acid Calcium 8.0 L Iron TIBC % Saturation Unsat Iron Binding Ferritin Total Bilirubin AST ALT Alkaline Phosphatase Lactate Dehydrogenase Total Creatine Kinase 117 Troponin I Total Protein Albumin Globulin Albumin/Globulin Ratio Vitamin B12 Urine Color Urine Appearance Urine pH Ur Specific [place] Urine Protein Urine Ketones Urine Blood Urine Nitrate Urine Bilirubin Urine Urobilinogen Ur Leukocyte Esterase Urine WBC (Auto) Urine RBC (Auto) Ur Squamous Epith Cells Urine Bacteria Hyaline Casts Ur Random Creatinine Ur Random Sodium Urine Glucose HIV 1&2 Antibody Nonreactive 09/17/16 09/17/16 09/17/16 05:47 05:47 19:09 WBC 4.9 RBC 3.04 L RBC (Retic) 3.54 L Hgb 8.8 L Hct 26 L HCT (Retic) 31 L MCV 87 MCH 29 MCHC 33 RDW 17 H Plt Count 29 L MPV 8 Immature Gran % (Auto) Neut % (Auto) 84.4 H Lymph % (Auto) 6.4 L Cannon % (Auto) 8.6 Eos % (Auto) 0.1 Baso % (Auto) 0.5 Absolute Neuts (auto) 4.1 Absolute Lymphs (auto) 0.3 L Absolute Monos (auto) 0.4 Absolute Eos (auto) 0 Absolute Basos (auto) 0 Absolute Nucleated RBC 0 Neutrophils % Band Neutrophils % Lymphocytes % Reactive Lymphs % Monocytes % Metamyelocytes % Myelocytes % Nucleated RBC % 0.1 Platelet Morphology Normal RBC Morphology Basophilic Stippling Microcytosis Macrocytosis Spherocytes Raccoon Cells Retic Count, Calc 0.8 Corrected Retic Count 0.6 Retic Shift Factor 1.5 Retic Production Index 0.40 Immature Retic Fraction 0.35 Mean Retic Volume 100.5 Hem Pathologist Commnt INR (Anticoag Therapy) Sodium 143 Potassium 3.6 Chloride 106 Carbon Dioxide 33 H Anion Gap 4 BUN 27 H Creatinine 0.49 L Est GFR ( Amer) 215.8 Est GFR (Non-Af Amer) 167.8 BUN/Creatinine Ratio 55.1 H Glucose 108 H Lactic Acid Uric Acid Calcium 8.0 L Iron TIBC % Saturation Unsat Iron Binding Ferritin Total Bilirubin 0.60 AST 20 ALT 27 Alkaline Phosphatase 50 Lactate Dehydrogenase Total Creatine Kinase Troponin I Total Protein 4.7 L Albumin 2.3 L Globulin 2.4 Albumin/Globulin Ratio 1.0 Vitamin B12 Urine Color Urine Appearance Urine pH Ur Specific [place] Urine Protein Urine Ketones Urine Blood Urine Nitrate Urine Bilirubin Urine Urobilinogen Ur Leukocyte Esterase Urine WBC (Auto) Urine RBC (Auto) Ur Squamous Epith Cells Urine Bacteria Hyaline Casts Ur Random Creatinine Ur Random Sodium Urine Glucose HIV 1&2 Antibody 09/17/16 09/17/16 09/18/16 19:09 21:52 18:31 WBC 4.5 RBC 3.10 L RBC (Retic) Hgb 9.0 L Hct 27 L HCT (Retic) MCV 87 MCH 29 MCHC 33 RDW 17 H Plt Count 37 L MPV 8 Immature Gran % (Auto) Neut % (Auto) 72.4 Lymph % (Auto) 10.5 L Cannon % (Auto) 16.7 H Eos % (Auto) 0 Baso % (Auto) 0.4 Absolute Neuts (auto) 3.3 Absolute Lymphs (auto) 0.5 L Absolute Monos (auto) 0.8 Absolute Eos (auto) 0 Absolute Basos (auto) 0 Absolute Nucleated RBC 0 Neutrophils % Band Neutrophils % Lymphocytes % Reactive Lymphs % Monocytes % Metamyelocytes % Myelocytes % Nucleated RBC % 0.1 Platelet Morphology Normal RBC Morphology Basophilic Stippling Microcytosis Macrocytosis Spherocytes Ifeanyi Cells Retic Count, Calc Corrected Retic Count Retic Shift Factor Retic Production Index Immature Retic Fraction Mean Retic Volume Hem Pathologist Commnt INR (Anticoag Therapy) Sodium Potassium Chloride Carbon Dioxide Anion Gap BUN Creatinine Est GFR ( Amer) Est GFR (Non-Af Amer) BUN/Creatinine Ratio Glucose Lactic Acid Uric Acid 2.0 L Calcium Iron 44 L TIBC 153 L % Saturation 29 Unsat Iron Binding 109 Ferritin 228.2 Total Bilirubin AST ALT Alkaline Phosphatase Lactate Dehydrogenase 286 H Total Creatine Kinase Troponin I Total Protein Albumin Globulin Albumin/Globulin Ratio Vitamin B12 > 1450 H Urine Color Urine Appearance Urine pH Ur Specific [place] Urine Protein Urine Ketones Urine Blood Urine Nitrate Urine Bilirubin Urine Urobilinogen Ur Leukocyte Esterase Urine WBC (Auto) Urine RBC (Auto) Ur Squamous Epith Cells Urine Bacteria Hyaline Casts Ur Random Creatinine Ur Random Sodium Urine Glucose HIV 1&2 Antibody 09/18/16 09/18/16 09/19/16 18:31 18:31 05:02 WBC 4.0 RBC 3.28 L RBC (Retic) Hgb 9.2 L Hct 28 L HCT (Retic) MCV 86 MCH 28 MCHC 33 RDW 17 H Plt Count 39 L MPV 8 Immature Gran % (Auto) Neut % (Auto) 68.6 Lymph % (Auto) 13.0 L Cannon % (Auto) 18.1 H Eos % (Auto) 0.1 Baso % (Auto) 0.2 Absolute Neuts (auto) 2.7 Absolute Lymphs (auto) 0.5 L Absolute Monos (auto) 0.7 Absolute Eos (auto) 0 Absolute Basos (auto) 0 Absolute Nucleated RBC 0.01 Neutrophils % Band Neutrophils % Lymphocytes % Reactive Lymphs % Monocytes % Metamyelocytes % Myelocytes % Nucleated RBC % 0.2 Platelet Morphology Normal RBC Morphology Basophilic Stippling Microcytosis Macrocytosis Spherocytes Ifeanyi Cells Retic Count, Calc Corrected Retic Count Retic Shift Factor Retic Production Index Immature Retic Fraction Mean Retic Volume Hem Pathologist Commnt INR (Anticoag Therapy) 1.02 Sodium 141 Potassium 3.3 L Chloride 102 Carbon Dioxide 35 H Anion Gap 4 BUN 22 Creatinine 0.46 L Est GFR ( Amer) 232.1 Est GFR (Non-Af Amer) 180.5 BUN/Creatinine Ratio 47.8 H Glucose 178 H Lactic Acid Uric Acid Calcium 7.9 L Iron TIBC % Saturation Unsat Iron Binding Ferritin Total Bilirubin 0.40 AST 21 ALT 25 Alkaline Phosphatase 58 Lactate Dehydrogenase Total Creatine Kinase Troponin I Total Protein 4.8 L Albumin 2.3 L Globulin 2.5 Albumin/Globulin Ratio 0.9 L Vitamin B12 Urine Color Urine Appearance Urine pH Ur Specific [place] Urine Protein Urine Ketones Urine Blood Urine Nitrate Urine Bilirubin Urine Urobilinogen Ur Leukocyte Esterase Urine WBC (Auto) Urine RBC (Auto) Ur Squamous Epith Cells Urine Bacteria Hyaline Casts Ur Random Creatinine Ur Random Sodium Urine Glucose HIV 1&2 Antibody 09/19/16 09/19/16 05:02 05:02 WBC RBC RBC (Retic) Hgb Hct HCT (Retic) MCV MCH MCHC RDW Plt Count MPV Immature Gran % (Auto) Neut % (Auto) Lymph % (Auto) Cannon % (Auto) Eos % (Auto) Baso % (Auto) Absolute Neuts (auto) Absolute Lymphs (auto) Absolute Monos (auto) Absolute Eos (auto) Absolute Basos (auto) Absolute Nucleated RBC Neutrophils % Band Neutrophils % Lymphocytes % Reactive Lymphs % Monocytes % Metamyelocytes % Myelocytes % Nucleated RBC % Platelet Morphology Normal RBC Morphology Basophilic Stippling Microcytosis Macrocytosis Spherocytes Raccoon Cells Retic Count, Calc Corrected Retic Count Retic Shift Factor Retic Production Index Immature Retic Fraction Mean Retic Volume Hem Pathologist Commnt INR (Anticoag Therapy) 1.10 Sodium 138 Potassium 3.6 Chloride 101 Carbon Dioxide 33 H Anion Gap 4 BUN 18 Creatinine 0.33 L Est GFR ( Amer) 340.5 Est GFR (Non-Af Amer) 264.8 BUN/Creatinine Ratio 54.5 H Glucose 106 H Lactic Acid Uric Acid Calcium 8.0 L Iron TIBC % Saturation Unsat Iron Binding Ferritin Total Bilirubin AST ALT Alkaline Phosphatase Lactate Dehydrogenase Total Creatine Kinase Troponin I Total Protein Albumin Globulin Albumin/Globulin Ratio Vitamin B12 Urine Color Urine Appearance Urine pH Ur Specific [place] Urine Protein Urine Ketones Urine Blood Urine Nitrate Urine Bilirubin Urine Urobilinogen Ur Leukocyte Esterase Urine WBC (Auto) Urine RBC (Auto) Ur Squamous Epith Cells Urine Bacteria Hyaline Casts Ur Random Creatinine Ur Random Sodium Urine Glucose HIV 1&2 Antibody Exam Appearance: Thin Framed Hygiene: Normal Grooming: Disheveled Psychomotor Activities: Abnormal-Decreased Attitude and Relatedness: Minimally Cooperative Eye Contact: Good - Speech Quality: Unpressured Latencies: Long Quantity: Terse Patient's Decription of Mood: "Irritable" Observed Affect: Non-labile Affect Consistent with: Dysphoria - mild Patient's Thought Process: Loose Associations Thought Content: No Passive Wish, No Suicidal Planning, No Homicidal Ideation, No Paranoid Ideation Experiencing Hallucinations: No, Sensorium is Clear Level of Consciousness: Alert Impulse Control: Intact Insight and Judgement: Poor Impression - Impression Clinical Impression: 70-year-old male with apparent chronic schizophrenia and prior psychiatric hospitalization and suicide attempt, who is out of psychiatric treatment for an extended period. He is seriously medically ill and also has had residual psychotic symptoms. Additionally, he has had evidence of delirium with disorientation and alteration of level of consciousness. Has been up and down behaviorally. Appropriate to restart low dose Haldol due to apparent decompensation and agitation off it. Risk of a/e justified based incapacitating nature of symptoms. Discussed with Dr. Palacios repeating EKG to check qtc Plan - Treatment Plan Treatment Plan: 1. Medication management: restart Haldol 0.5 mg BID Medications: Current Medications Acetaminophen (Tylenol Tab*) 650 mg PO Q6H PRN PRN Reason: Pain/fever Last Admin: 09/15/16 19:38 Dose: 650 mg Collagenase (Santyl 250 Mg/Gm Oint*) 1 applic TOPICAL DAILY RAFAEL Last Admin: 09/19/16 09:16 Dose: 1 applic Docusate Sodium (Colace Cap*) 100 mg PO BID [facility] Last Admin: 09/20/16 10:10 Dose: 100 mg Haloperidol Lactate (Haldol Inj Iv/Im*) 0.5 mg IV SLOW PU BID [facility] Clindamycin HCl/Dextrose (Cleocin 300 Mg Ivpemix(*)) 300 mg in 50 mls @ 200 mls /hr IV Q6H [facility] Last Admin: 09/20/16 10:02 Dose: 200 mls/hr Polyethylene Glycol/Electrolytes (Miralax*) 17 gm PO DAILY PRN PRN Reason: CONSTIPATION Last Admin: 09/19/16 08:58 Dose: 17 gm Senna (Senokot Tab*) 1 tab PO BEDTIME PRN PRN Reason: CONSTIPATION Last Admin: 09/19/16 08:57 Dose: 1 tab
[2016-09-20] MEDS ORDERED: Gadoteridol* (CONTRAST) 279.3 MG/ML 10 ML IV ONE (14:55)
[2016-09-20 15:25] LABS: Albumin 2.1 g/dL (3.4-4.7); Gamma Globulin 0.6 g/dL (0.6-1.6); Total Protein(PEP) 4.8 g/dL (6.3 - 7.9)
--- NOTE | 2016-09-20 16:05 | CONS ---
CONSULTATION REPORT: DATE OF CONSULT: 09/20/16 REQUESTING PHYSICIAN: Dr. Palacios. CONSULTING SERVICE: Infectious Disease. REASON FOR CONSULT: Staph bacteremia, anorexia. IMPRESSION: 1. Staphylococcus aureus in 1/4 blood culture bottles, methicillin sensitive, drawn at the time of him being found down for a prolonged time. He has extensive decubitus ulceration from his skull to his heels and infection from one of those could be the source of his bacteremia. He does have an asymmetric neurological exam involving the legs and profound weakness of the arms. He has no epidural abscess on the cervical spine, but it has not been ruled out in the thoracic or lumbar spine. He barely felt pain with painful stimuli in his back , so I am not sure that the lack of spine tenderness is helpful in his case. Endocarditis is possibility, though little bit less likely with only 1/4 bottles positive. He has no prosthetic material present. 2. Anorexia and significant weight loss, cachexia. His HIV antibody was negative. 3. Schizophrenia. 4. Normocytic anemia and thrombocytopenia. RECOMMENDATION: MRI of the brain and lumbar spine and thoracic spine to evaluate for brain abscess, epidural abscess, vertebral osteodiskitis. Discontinue Levaquin. He has had 8 days of coverage for his likely aspiration pneumonitis. Continue his clindamycin. HISTORY OF PRESENT ILLNESS: This is a 70-year-old man transferred from [facility]. He cannot provide much history given his baseline mental status, which is obtained instead from review of the medical record and discussion with Dr. Barrett. He was found by his pillowcase maker on the floor of his [facility]. The place was in a state of disarray. He was taken to [facility]. CT of the brain was read as being unremarkable. CT of the abdomen and pelvis was negative and x- ray of the chest showed bibasilar infiltrates. Blood culture was taken. He was transferred here. Blood culture came back 1/4 bottles with Staph aureus. The chest x-ray on the here, 2 days after admission here, showed bilateral pleural effusions and bibasilar atelectasis versus consolidation. He was noted to be weak in his extremities on exam, spine MRI, cervical spine with and without contrast showed severe cervical spondylosis with changes most prominent in the C4-C5 and C5- C6, spinal cord compression at both levels. He has been followed by Neurology. He has been afebrile. He has no prosthetic material present. PAST MEDICAL HISTORY: Schizophrenia. MEDICATIONS: 1. Levaquin 500 mg IV daily. 2. Senna. 3. Polyethylene glycol. 4. Haldol. 5. Docusate. 6. Collagenase topical. 7. Clindamycin 300 mg every 6 hours. 8. Tylenol. ALLERGIES: No known drug allergies. FAMILY HISTORY: Unknown. SOCIAL HISTORY: [facility] in [facility]. REVIEW OF SYSTEMS: Unobtainable. PHYSICAL EXAM: Vital Signs: Temperature 36.3, heart rate 70, respiratory rate 16, blood pressure 160/80, O2 sat 100% on room air. General: He is cachetic, he is not in distress. Neurologic: He is awake, answers some question, oriented x1. Cranial nerves II through XII are intact. He cannot move his arms. Sensation is intact to light touch in both upper extremities and lower extremities bilaterally. Strength is 5/5 in the tibialis anterior and gastrocnemius, significantly reduced in the left greater that right quadriceps. There is no lower extremity clonus. He has decreased sensation to light touch in his back and to painful stimuli in his back. Lymph Nodes: There is no cervical, supraclavicular, inguinal, axillary, or epitrochlear lymphadenopathy. Heart has regular rate and rhythm without murmurs, rubs, or gallops. Lungs are clear to auscultation bilaterally. Abdomen: Soft, nontender, and nondistended. Skin: There is no rash, but from his skull down to his buttock and ankles are multiple superficial pressure ulcerations with underlying exposed soft tissues, surrounding mild erythema, no drainage or fluctuance. LABORATORY DATA: Creatinine is 0.3. White blood cell count 4, hemoglobin 9, platelets 39. HIV antibody negative. Urinalysis shows blood. Please see impressions and recommendations outlined above, which I have discussed with Dr. Barrett and Dr. Palacios. Thanks for asking me to see Mr. Griggs in consultation. [id number]/[facility] #: [id number] BENITA
--- NOTE | 2016-09-20 18:31 | RAD ---
Indication: Weakness. Unable to move arms. Comparison: September 13, 2016 CT. Technique: [place] 1.5 Hilda [id number] with GEM suite. MRI brain without contrast. Report: Diffusion series is negative for acute or subacute ischemia. Susceptibility series is negative for stigmata of hemosiderin deposition to indicate previous hemorrhage. Mild prominence of the cerebral sulci and proportional prominence of the ventricles reflecting volume loss. Foci of T2 hyperintensity within the periventricular and subcortical white matter of the cerebral hemispheres without mass effect. Negative for intra or extra-axial fluid collection. Patent basal cisterns. Preserved major intracranial flow-voids. Unremarkable orbital contents. Minimal mucosal thickening in the LEFT maxillary sinus. Negative for paranasal sinus fluid levels. Minimal LEFT mastoid effusions. No suspicious lesion of the calvarium or skull base evident. Unremarkable scalp. IMPRESSION: No evidence for acute or subacute ischemia. Mild atrophy and white matter signal abnormalities while not entirely specific are most consistent with chronic small vessel ischemic disease.
--- NOTE | 2016-09-20 19:36 | RAD ---
Indication: Increased weakness including the upper and lower extremities. Assess for spinal cord compression and epidural abscess. Comparison: September 13, 2016 CT. Technique: [place] 1.5 Hilda [id number] with GEM suite. Noncontrast MRI lumbar sacral spine. Report: Unremarkable conus medullaris and cauda equina. 1.5 cm AP by 4.0 cm transverse by 1.2 cm cephalocaudal T2 hyperintense T1 hypointense lesion at the anterior aspect of the superior endplate of L2 with associated enhancement on the postcontrast series is most suggestive of Modic type I reactive endplate change based on location and morphology. Additional type I reactive endplate change noted at the L5-S1 level. No suspicious focal osseous lesions or fractures evident. Negative for spondylolisthesis at any level. T11-T12 and T12-L1: Mild predominantly anterior vertebral endplate osteophytosis. Negative for dorsal disc herniation or acquired spinal stenosis. L1-L2: Mild predominantly anterior vertebral endplate osteophytosis. Negative for dorsal disc herniation or acquired spinal stenosis. L2-L3: Mild predominantly anterior vertebral endplate osteophytosis. Negative for dorsal disc herniation or acquired spinal stenosis. L3-L4: Mild disc space narrowing and desiccation. Mild annular disc bulge. Negative for central canal stenosis. Degenerative spondylosis and facet joint osteoarthritis results in mild to moderate LEFT foraminal stenosis. L4-L5: Moderate disc space narrowing. Mild annular disc bulge and moderate bilateral facet joint osteoarthritis. Mild alteration in the shape of the thecal sac without significant resulting central canal stenosis. Mild bilateral foraminal stenosis. L5-S1: Moderate disc space narrowing and desiccation. Mild annular disc bulge and bilateral facet joint osteoarthritis. Negative for central canal stenosis. Moderate RIGHT and mild LEFT foraminal stenosis. Negative for findings suspicious for osteomyelitis discitis. Negative for epidural inflammatory process or abscess. The inferior vena cava is largely decompressed suggesting low volume state. IMPRESSION: 1. No evidence for central canal spinal stenosis. 2. No evidence for osteomyelitis discitis or epidural abscess. 3. 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 Associated multilevel mild to moderate foraminal stenosis as described.
[2016-09-20] MEDS: Haloperidol INJ IV/IM* 5 MG/ML AMP IV SLOW PU SCH (21:00)
[2016-09-20] MEDS: Collagenase 250 MG/GM OINT* 30 GM TOPICAL SCH ×2 (21:01→22:31)
[2016-09-21] MEDS: Clindamycin 300 MG IVPREMIX(* 300 MG/50 ML SDV IV SCH ×4 (03:25→22:11)
[2016-09-21] MEDS: Docusate CAP* 100 MG PO SCH ×2 (07:23→21:47)
[2016-09-21] MEDS: Haloperidol INJ IV/IM* 5 MG/ML AMP IV SLOW PU SCH ×2 (09:31→22:09)
--- NOTE | 2016-09-21 11:20 | PN ---
Subjective Date of Service: 09/21/16 Interval History: Refused labs this AM. Did take medications Refuses to talk to this author and refuses physical exam threatening harm if attempted Will not indicate if he is having pain, weakness, SOB or other symptoms He is still worried about MARLYN, and "technology" Objective Active Medications: Acetaminophen (Tylenol Tab*) 650 mg PO Q6H PRN PRN Reason: Pain/fever Last Admin: 09/15/16 19:38 Dose: 650 mg Collagenase (Santyl 250 Mg/Gm Oint*) 1 applic TOPICAL 2100 [facility] Last Admin: 09/20/16 21:01 Dose: 1 applic Docusate Sodium (Colace Cap*) 100 mg PO BID [facility] Last Admin: 09/21/16 07:23 Dose: Not Given Haloperidol Lactate (Haldol Inj Iv/Im*) 0.5 mg IV SLOW PU BID [facility] Last Admin: 09/21/16 09:31 Dose: 0.5 mg Clindamycin HCl/Dextrose (Cleocin 300 Mg Ivpemix(*)) 300 mg in 50 mls @ 200 mls /hr IV Q6H [facility] Last Admin: 09/21/16 09:30 Dose: 200 mls/hr Polyethylene Glycol/Electrolytes (Miralax*) 17 gm PO DAILY PRN PRN Reason: CONSTIPATION Last Admin: 09/19/16 08:58 Dose: 17 gm Senna (Senokot Tab*) 1 tab PO BEDTIME PRN PRN Reason: CONSTIPATION Last Admin: 09/19/16 08:57 Dose: 1 tab Vital Signs 09/20/16 09/20/16 09/21/16 20:00 23:33 07:59 Temperature 97.0 F Pulse Rate 66 Respiratory 16 20 16 Rate Blood Pressure 140/72 (mmHg) O2 Sat by Pulse 98 Oximetry Oxygen Devices in Use Now: None - 1L-100% Appearance: Sitting up in bed, interactive, refuses all evaluation Result Diagrams: 09/19/16 05:02 09/19/16 05:02 Microbiology and Other Data: Microbiology 09/13/16 17:15 Nasal Screen MRSA (PCR)(ARINA) - Final Nasal Mrsa Negative Assess/Plan/Problems-Billing Mr Griggs is a 70 yo M who has a h/o untreated paranoid schizophrenia who was last seen on 09/10/16 by his hospice case manager then found down on the floor of his home on 09/13/16 and brought to [facility] where he was found to be in acute renal failure with urinary retention, mild rhabdomyolysis, with a markedly abnormal CBC and CT imaging that showed patchy bibasilar infiltrates and massive lymphadenopathy around the abdominal aorta. He was transferred [place] [facility] [place] further evaluation and treatment. - Patient Problems (1) Sepsis Comment: Present on admission Likely sources include staph bacteremia or pneumonia Treated with zosyn, levaquin, cefazolin and now clindamycin sepsis now resolved (2) Staphylococcus aureus bacteremia Comment: The patient' has 1 of 4 bottles positive for S aureus. Repeat blood cultures negative Continue clindamycin. Bacteremia likely as a result of skin wounds. (3) Weakness Comment: Pt with cervical myelopathy from stenosis or possibly traumea. Dr. Lewis does not believe the patient is a surgical candidate at this time. perhaps if his bacteremia, thrombocytopenia and mental status improve he would be a candidate for an anterior cervical discectomy. For now continue PT/OT. He is going to need STR. (4) Acute renal failure Comment: Resolved. Keep smith in place due to urinary retention. (5) Hyponatremia Comment: Resolved with hydration. (6) Urinary retention Comment: Pt with significant urinary retention. Smith has been replaced and will remain in until seen by urology as outpatient. (7) Rhabdomyolysis Comment: Rhabdomyolysis has resolved. Pressure ulcerations on back continue to be treated with santyl, covered with vaseline gauze and ABD. Continue pressure relieving measures. (8) Pancytopenia Comment: Appreciate heme consult Suspected in setting of sepsis Continue to follow counts. - pt refusing labs (9) Abdominal lymphadenopathy Comment: CT of the abd/pelvis with contrast to better evaluate would be useful however the patient is now much more paranoid and agitated and refusing physical exam (10) Aspiration pneumonia Comment: The patient completed therapy for aspiration pna. c/w clindamycin (11) Paranoid schizophrenia Comment: Start back prn haldol-pt is even more agitated and paranoid today. Continue to monitor. has prolonged QTc (12) DVT prophylaxis Comment: SCDs in setting of thrombocytopenia
[2016-09-21] MEDS: Collagenase 250 MG/GM OINT* 30 GM TOPICAL SCH (22:10)
[2016-09-22] MEDS: Clindamycin 300 MG IVPREMIX(* 300 MG/50 ML SDV IV SCH ×4 (04:20→22:26)
[2016-09-22 06:08] LABS: Hematocrit 33 % (42-52); Mean Corpuscular HGB Conc 33 g/dl (31-36); Mean Corpuscular Hemoglobin 29 pg (27-31); Mean Corpuscular Volume 88 fL (80-94); Mean Platelet Volume 9 um3 (7.4-10.4); Red Blood Count 3.79 10^6/ul (4.0-5.4); Red Cell Distribution Width 17 % (10.5-15); White Blood Count 4.6 10^3/ul (3.5-10.8)
[2016-09-22 06:17] LABS: BUN/Creatinine Ratio 53.8 (8-20); Calcium 8.3 mg/dL (8.6-10.3); EGFR African American 280.8 (>60); EGFR Non-African American 218.3 (>60); Potassium 4.5 mmol/L (3.5-5.0)
[2016-09-22] MEDS: Docusate CAP* 100 MG PO SCH ×2 (07:09→20:11)
[2016-09-22] MEDS: Haloperidol INJ IV/IM* 5 MG/ML AMP IV SLOW PU SCH (10:09)
[2016-09-22] MEDS ORDERED: Haloperidol TAB* 0.5 MG PO PRN (16:25)
--- NOTE | 2016-09-22 16:32 | PN ---
Subjective Date of Service: 09/22/16 Interval History: Wants to discuss the importance of potassium, garlic and other herbs Denies weakness but notably unable to use limbs Taking most of medications, has not been aggressive Objective Active Medications: Acetaminophen (Tylenol Tab*) 650 mg PO Q6H PRN PRN Reason: Pain/fever Last Admin: 09/15/16 19:38 Dose: 650 mg Collagenase (Santyl 250 Mg/Gm Oint*) 1 applic TOPICAL 2100 [facility] Last Admin: 09/21/16 22:10 Dose: 1 applic Docusate Sodium (Colace Cap*) 100 mg PO BID [facility] Last Admin: 09/22/16 07:09 Dose: Not Given Haloperidol (Haldol Tab*) 0.5 mg PO Q6H PRN PRN Reason: AGITATION Clindamycin HCl/Dextrose (Cleocin 300 Mg Ivpemix(*)) 300 mg in 50 mls @ 200 mls /hr IV Q6H [facility] Last Admin: 09/22/16 15:30 Dose: 200 mls/hr Polyethylene Glycol/Electrolytes (Miralax*) 17 gm PO DAILY PRN PRN Reason: CONSTIPATION Last Admin: 09/19/16 08:58 Dose: 17 gm Senna (Senokot Tab*) 1 tab PO BEDTIME PRN PRN Reason: CONSTIPATION Last Admin: 09/19/16 08:57 Dose: 1 tab Vital Signs 09/21/16 09/21/16 09/22/16 20:00 23:37 07:27 Temperature 97.3 F Pulse Rate 64 58 Respiratory 16 18 16 Rate Blood Pressure 153/80 139/68 (mmHg) O2 Sat by Pulse 98 100 Oximetry 09/22/16 09/22/16 09/22/16 08:00 08:04 15:34 Temperature 94.8 F Pulse Rate 60 64 Respiratory 16 18 20 Rate Blood Pressure 148/76 150/69 (mmHg) O2 Sat by Pulse 98 100 Oximetry 09/22/16 16:09 Temperature 98.3 F Pulse Rate Respiratory Rate Blood Pressure (mmHg) O2 Sat by Pulse Oximetry Oxygen Devices in Use Now: None - 1L-100% Appearance: sitting up in bed, does not participate in most of exam. Will not allow examination of back although exam documented elsewhere in nuring notes Neurological: - - 3/5 proximal in UE and 0/5 at wrists strength UE Result Diagrams: 09/22/16 05:31 09/22/16 05:31 Microbiology and Other Data: Microbiology 09/13/16 17:15 Nasal Screen MRSA (PCR)(ARINA) - Final Nasal Mrsa Negative Assess/Plan/Problems-Billing Mr Griggs is a 70 yo M who has a h/o untreated paranoid schizophrenia who was last seen on 09/10/16 by his immigration case manager then found down on the floor of his home on 09/13/16 and brought to [facility] where he was found to be in acute renal failure with urinary retention, mild rhabdomyolysis, with a markedly abnormal CBC and CT imaging that showed patchy bibasilar infiltrates and massive lymphadenopathy around the abdominal aorta. He was transferred [place] [facility] [place] and treatment. - Patient Problems (1) Sepsis Comment: Present on admission Likely sources include staph bacteremia or pneumonia Treated with zosyn, levaquin, cefazolin and now clindamycin IV. Day 8 of 14 sepsis now resolved (2) Staphylococcus aureus bacteremia Comment: The patient' has 1 of 4 bottles positive for S aureus. Repeat blood cultures negative Continue clindamycin day 8 of 14 Bacteremia likely as a result of skin wounds. Can complete clinda oral but will maintain IV while inpatient (3) Weakness Comment: Pt with cervical myelopathy from stenosis or possibly secondary to trauma. Dr. Lewis does not believe the patient is a surgical candidate at this time.Perhaps if his bacteremia, thrombocytopenia and mental status improve he would be a candidate for an anterior cervical discectomy. For now continue PT/ OT. He is going to need STR. (4) Acute renal failure Comment: Resolved. Keep smith in place due to urinary retention. (5) Hyponatremia Comment: Resolved with hydration. (6) Urinary retention Comment: Pt with significant urinary retention. Smith has been replaced and will remain in until seen by urology as outpatient. (7) Rhabdomyolysis Comment: Rhabdomyolysis has resolved. Pressure ulcerations on back continue to be treated with santyl, covered with vaseline gauze and ABD. Continue pressure relieving measures. (8) Pancytopenia Comment: Appreciate heme consult Suspected in setting of sepsis Improving (9) Abdominal lymphadenopathy Comment: CT of the abd/pelvis with contrast to better evaluate would be useful however the patient is now much more paranoid and agitated and refusing physical exam (10) Aspiration pneumonia Comment: The patient completed therapy for aspiration pna. c/w clindamycin day 8 of 14 (11) Paranoid schizophrenia Comment: Start back prn haldol- Change to PO to eval stability for discharge Continue to monitor. has prolonged QTc (12) DVT prophylaxis Comment: Plts improved. Change to lovenox Status and Disposition: Pt has bed offer at [facility]. If stable without need for IV antipsychotics can be discharged tomorrow
[2016-09-22] MEDS ORDERED: Enoxaparin(*) 40 MG/0.4 ML SYR SUBCUT SCH (17:00)
[2016-09-23] MEDS: Collagenase 250 MG/GM OINT* 30 GM TOPICAL SCH (00:25)
[2016-09-23] MEDS: Clindamycin 300 MG IVPREMIX(* 300 MG/50 ML SDV IV SCH ×2 (03:43→11:43)
--- NOTE | 2016-09-23 08:11 | PN ---
Subjective Date of Service: 09/23/16 Interval History: Interviewed and examined patient at bedside; Discussed case with Dr. Moya ; Reviewed previous notes and radiology results; no new complaints expressed by patient. ongoing antibiotics for staph (MSSA) septicemia, sepsis and pneumonia. Family History: Unchanged from Admission Social History: Unchanged from Admission Past Medical History: Unchanged from Admission Objective Active Medications: . Acetaminophen (Tylenol Tab*) 650 mg PO Q6H PRN PRN Reason: Pain/fever Last Admin: 09/15/16 19:38 Dose: 650 mg Collagenase (Santyl 250 Mg/Gm Oint*) 1 applic TOPICAL 2100 [facility] Last Admin: 09/23/16 00:25 Dose: 1 applic Docusate Sodium (Colace Cap*) 100 mg PO BID [facility] Last Admin: 09/22/16 20:11 Dose: Not Given Enoxaparin Sodium (Lovenox(*)) 40 mg SUBCUT Q24H [facility] Last Admin: 09/22/16 17:21 Dose: 40 mg Haloperidol (Haldol Tab*) 0.5 mg PO Q6H PRN PRN Reason: AGITATION Clindamycin HCl/Dextrose (Cleocin 300 Mg Ivpemix(*)) 300 mg in 50 mls @ 200 mls /hr IV Q6H [facility] Last Admin: 09/23/16 03:43 Dose: 200 mls/hr Polyethylene Glycol/Electrolytes (Miralax*) 17 gm PO DAILY PRN PRN Reason: CONSTIPATION Last Admin: 09/19/16 08:58 Dose: 17 gm Senna (Senokot Tab*) 1 tab PO BEDTIME PRN PRN Reason: CONSTIPATION Last Admin: 09/19/16 08:57 Dose: 1 tab Vital Signs 09/22/16 09/22/16 09/22/16 15:34 16:09 20:00 Temperature 98.3 F Pulse Rate 64 Respiratory 20 16 Rate Blood Pressure 150/69 (mmHg) O2 Sat by Pulse 100 Oximetry 09/22/16 23:43 Temperature 98.8 F Pulse Rate 71 Respiratory 16 Rate Blood Pressure 136/61 (mmHg) O2 Sat by Pulse 96 Oximetry Oxygen Devices in Use Now: None - 1L-100% Appearance: dishevelled, but NAD Eyes: No Scleral Icterus, PERRLA Ears/Nose/Mouth/Throat: Clear Oropharnyx, Mucous Membranes Moist Neck: NL Appearance and Movements; NL JVP Respiratory: Symmetrical Chest Expansion and Respiratory Effort, Clear to Auscultation Cardiovascular: NL Sounds; No Murmurs; No JVD Abdominal: NL Sounds; No Tenderness; No Distention Lymphatic: No Cervical Adenopathy Extremities: No Edema Skin: No Rash or Ulcers Neurological: NL Sensation Lines/Tubes/Other Access: Clean, Dry and Intact Peripheral IV Result Diagrams: 09/22/16 05:31 09/22/16 05:31 Microbiology and Other Data: Microbiology 09/13/16 17:15 Nasal Screen MRSA (PCR)(ARINA) - Final Nasal Mrsa Negative Assess/Plan/Problems-Billing . Assessment: Mr Griggs is a 70 yo M who has a h/o untreated paranoid schizophrenia who was last seen on 09/10/16 by his ed case manager then found down on the floor of his home on 09/13/16 and brought to [facility] where he was found to be in acute renal failure with urinary retention, mild rhabdomyolysis, with a markedly abnormal CBC and CT imaging that showed patchy bibasilar infiltrates and massive lymphadenopathy around the abdominal aorta. He was [place] [facility] [place] and treatment. . Current Medications: - Acetaminophen (Tylenol Tab) 650 mg PO Q6H PRN Pain/fever - Collagenase (Santyl 250 Mg/Gm Oint) 1 applic TOPICAL 2100 - Docusate Sodium (Colace Cap) 100 mg PO BID - Enoxaparin Sodium (Lovenox) 40 mg SUBCUT Q24H - Haloperidol (Haldol Tab) 0.5 mg PO Q6H PRN AGITATION - Clindamycin 300 mg in 50 mls @ 200 mls/hr IV Q6H - Polyethylene Glycol/Electrolytes (Miralax) 17 gm PO DAILY PRN CONSTIPATION - Senna (Senokot Tab) 1 tab PO BEDTIME PRN CONSTIPATION . - Patient Problems (1) Acute renal failure Status: Acute Comment: - Post obstructive in nature with ATN component - took days to resolve -- Cr maria esther to 5x baseline with >3X after initial hydration. - ARF by any criterion - keep smith in place with o/p urology f/u in 1-2 weeks. (2) Paranoid schizophrenia Status: Acute Priority: High Code(s): F20.0 - PARANOID SCHIZOPHRENIA Comment: Start back prn haldol- Change to PO to eval stability for discharge Continue to monitor. has prolonged QTc - check EKG (3) Sepsis Status: Acute Priority: High Comment: Sepsis was present on admission and legitimate by qSOFA/SOFA scoring Likely sources include staph bacteremia or pneumonia - I think Staph bacteremia was CERTAINLY contributing Treated with zosyn, levaquin, cefazolin and now clindamycin IV. Total 14 days sepsis now resolved (4) Staphylococcus aureus bacteremia Status: Acute Code(s): R78.81 - BACTEREMIA Comment: + MSSA Bcx - now cleared Repeat blood cultures negative Continue clindamycin for 14 days Bacteremia likely as a result of skin wounds. Can complete clinda oral but will maintain IV while inpatient (5) Urinary retention Status: Acute Code(s): R33.9 - RETENTION OF URINE, UNSPECIFIED Comment: Pt with significant urinary retention. Smith has been replaced and will remain in until seen by urology as outpatient. Status and Disposition: Pt has bed offer at [facility].
[2016-09-23 08:34] VITALS: BP 158/72
[2016-09-23] MEDS: Docusate CAP* 100 MG PO SCH (11:43)
--- NOTE | 2016-09-23 14:32 | DS ---
DISCHARGE SUMMARY: DATE OF ADMISSION: 09/13/16 DATE OF DISCHARGE: 09/23/16 PRIMARY CARE PROVIDER: Dr. Fidel Abdullahi. PRINCIPAL DISCHARGE DIAGNOSES: 1. Methicillin sensitive Staphylococcus aureus bacteremia with septicemia/ sepsis secondary to skin breakdown versus pneumonia. 2. Profound hyponatremia at admission from sepsis/hypovolemia - corrected. 3. Severe hyperkalemia at admission - also corrected with rehydration. 4. Severe acute renal failure secondary to postobstructive and intrarenal failure with initial creatinine of 1.96, which was greater than 5 times the patient's demonstrated baseline. 5. Rhabdomyolysis. 6. Metabolic encephalopathy/altered mental status. SECONDARY DIAGNOSIS: Ongoing paranoid schizophrenia with intermittent refusal to take medications and noncompliance. DISCHARGE MEDICATION REGIMEN: 1. Clindamycin 300 mg by mouth 3 times daily for 6 more days, then stop. 2. Acetaminophen 650 mg by mouth every 6 hours p.r.n. pain/fever. 3. Collagenase 250 mg per gram, 1 application to affected areas daily. 4. Colace 100 mg by mouth twice daily. 5. Lovenox 40 mg subcu daily (DVT prophylaxis continuing). 6. Haldol 0.5 mg q.6 hours p.r.n. agitation. 7. MiraLAX 17 g by mouth daily. 8. Senna 1 tab by mouth at bedtime. HISTORY OF PRESENT ILLNESS AND HOSPITAL COURSE: Please see the H and P by Elham Abdi NP, under the supervision of Dr. Shiela Leonardo on 09/13/16. In brief, Mr. Griggs is a 70-year-old man with a history of paranoid schizophrenia, who came to [facility] transferred from [facility] with altered mental status and suspicion for sepsis. The patient was noted to have urinary retention at [facility] and a Hemphill was placed with return of greater than 1000 mL of urine. The patient also had an elevated creatinine of 2.6 at that time with a baseline under 0.5 given his chronic low muscle mass/small stature. This represented a dramatic degree of renal failure. The patient's sodium was also low at 115 - severe hyponatremia was noted. The patient's potassium was elevated at 6.8, lactic acid was elevated at 3.1. He did not mount a white count, but this was considered secondary to his overall debilitated state. The patient had CT cervical spine, no acute abnormality and a CT of the brain which showed left maxillary sinusitis. The CT chest showed aspiration pneumonitis bilaterally, although malignancy could not be ruled out with the CT chest commenting on "debris" in the right bronchus intermedius and extension into the right middle bronchi and right lower lobe associated with subsegmental atelectasis in the right middle lobe and multifocal ground-glass opacities throughout the right middle lobe, right lower lobe, left lower lobe, and nonspecific aspiration pneumonitis or pneumonia with malignancy not being able to be excluded on that single examination with recommendation for followup. The patient also had a CT of the abdomen with massive lymphadenopathy around the aorta and possibly consistent with malignancy. The patient was [place] [facility] and he was stabilized with aggressive fluids and antibiotics. The patient was found on blood cultures to have Staph aureus. He was also noted to have a fairly significant bandemia over 25% despite his leukopenia. This was considered consistent with septicemia and again the patient's blood culture grew out MSSA that was aggressively treated at admission. The patient was supported through this hospitalization. He was also noted to have diffuse weakness and he was seen by Neurology and Neurosurgery, who also diagnosed him with cervical spondylosis, most pronounced at C4-C5 and C5-C6 (cord compression). The patient was deemed to likely need an ACD - C4-5 and C5-6 when medically stable, but there was no indication for urgent neurosurgical intervention and no recommendation for treatment with steroids and a cervical collar was not necessary. The patient seems to be improving but is still very weak. The patient has several more days of antibiotics and there was reference that no neurosurgical intervention would be entertained before the patient was fully treated with his antibiotic regimen. Accordingly Mr. Griggs is stable today for transfer to a nursing facility. His hyponatremia has resolved. His mental status has improved. He is irritable and by report, he is more closer to his baseline. His vital signs are stable. His lab work is generally unremarkable. In terms of his sodium concentration, it was back to 141 as of 09/18/16 with a recheck of 134 on 09/22/16. I met the patient today as he was eating lunch. His creatinine has dramatically improved down to 0.39. He has a Hemphill in place and needs Urology followup. The patient' s CK has also resolved (rhabdomyolysis). In general, I feel the patient is stable for fpc transfer. He will need both Neurosurgery and Urology followup. TIME SPENT: Total time taken to discharge Mr. Griggs was 50 minutes; greater than half the time spent going over the discharge process with the patient and explaining return to hospital parameters as well. CC: Dr. Abdullahi* [id number]/CPS #: [id number] MTDD
== END 2016-09-23 14:45 | DRG 871 ==
LOC: ICU 17:14 → MEDTELE 09-14 10:45 → MED 09-16 18:12
PROVIDERS: ADMIT Internal Medicine Critical Care Medicine; ATTEND Internal Medicine
DX: A41.01 Sepsis due to Methicillin susceptible Staphylococcus aureus (principal); J69.0 Pneumonitis due to inhalation of food and vomit; N17.0 Acute kidney failure with tubular necrosis; G93.41 Metabolic encephalopathy; L89.119 Pressure ulcer of right upper back, unspecified stage; D61.818 Other pancytopenia; L89.129 Pressure ulcer of left upper back, unspecified stage; J90 Pleural effusion, not elsewhere classified; L89.159 Pressure ulcer of sacral region, unspecified stage; F20.0 Paranoid schizophrenia; E87.1 Hypo-osmolality and hyponatremia; M47.12 Other spondylosis with myelopathy, cervical region; M62.82 Rhabdomyolysis; C34.90 Malignant neoplasm of unspecified part of unspecified bronchus or lung; C96.9 Malignant neoplasm of lymphoid, hematopoietic and related tissue, unspecified; R65.20 Severe sepsis without septic shock; J32.0 Chronic maxillary sinusitis; D72.819 Decreased white blood cell count, unspecified; R33.9 Retention of urine, unspecified; R54 Age-related physical debility; M48.02 Spinal stenosis, cervical region; E87.5 Hyperkalemia; F05 Delirium due to known physiological condition; E16.2 Hypoglycemia, unspecified; R45.1 Restlessness and agitation; Z91.14 Patient's other noncompliance with medication regimen; Z91.81 History of falling
CPT/HCPCS: 36415; 70551; 71020; 72125; 72156; 72158; 80048; 80051; 80053; 81003; 81015; 82550; 82570; 82607; 82728; 83540; 83550; 83605; 83615; 84155; 84165; 84300; 84484; 84550; 85025; 85045; 85060; 85610; 86703; 87040; 87077; 87086; 87150; 87186; 87205; 87641; 93005; 93306; 94760; 99232; 99254; A9270-GY; A9579; J0690; J1630; J1644; J1650; J1956; J2543

== ENCOUNTER 2016-10-14 16:47 | Emergency (ER) | payer MEDICARE, MEDICAID ==
[2016-10-14] MEDS ORDERED: LORazepam INJ* 2 MG/ML 1 ML VIAL IM ONE (17:49)
[2016-10-14] MEDS ORDERED: Haloperidol INJ IV/IM* 5 MG/ML AMP IM ONE (17:50)
--- NOTE | 2016-10-14 19:12 | ED ---
Head Injury - HPI Summary HPI Summary: 71M presents with head injury today. He rolled out of bed and landed on his face. He is from [facility] and they did an xray and said had orbital fracture and deviated septum. He is very combative in the ED. He refuses to answer any questions. He denies any pain. He is on xarelto. There is unclear LOC. He had xray at [facility] that showed orbital fracture on left side. They placed steristrip on area of nose. - History Of Current Complaint Chief Complaint: EDAltMentalStatus Stated Complaint: ORBITAL FX Time Seen by Provider: 10/14/16 17:45 Pain Intensity: 0 - Allergies/Home Medications Allergies/Adverse Reactions: Allergies Allergy/AdvReac Type Severity Reaction Status Date / Time No Known Allergies Allergy Verified 09/18/16 14:09 PMH/Surg Hx/FS Hx/Imm Hx Endocrine/Hematology History: Reports: Hx Anticoagulant Therapy Denies: Hx Diabetes Cardiovascular History: Denies: Hx Hypertension, Hx Pacemaker/ICD Respiratory History: Denies: Hx Asthma Sensory History: Denies: Hx Contacts or Glasses, Hx Hearing Aid Opthamlomology History: Denies: Hx Contacts or Glasses Psychiatric History: Reports: Hx Schizophrenia Denies: Hx Panic Disorder - Surgical History Surgery Procedure, Year, and Place: HERNIA REPAIR Infectious Disease History: No Infectious Disease History: Denies: Traveled Outside the [place] in Last 30 Days - Family History Known Family History: Positive: Unknown - Social History Alcohol Use: None Substance Use Type: Reports: None Smoking Status (MU): Unknown if Ever Smoked Review of Systems Negative: Fever Negative: Chest Pain Negative: Shortness Of Breath Positive: Other - abrasion on nose Negative: Headache All Other Systems Reviewed And Are Negative: Yes Physical Exam Triage Information Reviewed: Yes Vital Signs On Initial Exam: Initial Vitals Temp Pulse Resp BP Pulse Ox 98.5 F 76 16 114/70 98 10/14/16 17:02 10/14/16 17:02 10/14/16 17:02 10/14/16 17:02 10/14/16 17:02 Vital Signs Reviewed: Yes Completion Of Physical Exam Limited Due To: Dementia, Other - combative nature Skin: Positive: Warm, Dry, Other - steristrip placed on nasal area Head/Face: Positive: Normal Head/Face Inspection, Other - no step off, raccoon eyes, meneses sign Eyes: Positive: EOMI, VAZQUEZ, Conjunctiva Clear ENT: Positive: Pharynx normal, TMs normal Respiratory/Lung Sounds: Positive: Clear to Auscultation, Breath Sounds Present Cardiovascular: Positive: Normal, RRR Neurological: Positive: Speech Normal, Other - tongue protrudes midline, soft palate rises symmetrical, noncompliant with other portions of cranial nerves tests - Hope Coma Scale Best Eye Response: 4 - Spontaneous Best Motor Response: 6 - Obeys Commands Best Verbal Response: 5 - Oriented Coma Scale Total: 15 Diagnostics - Vital Signs Vital Signs Temp Pulse Resp BP Pulse Ox 10/14/16 17:06 98.5 F 76 16 114/70 98 10/14/16 17:02 98.5 F 76 16 114/70 98 - Laboratory Lab Statement: Any lab studies that have been ordered have been reviewed, and results considered in the medical decision making process. - CT brain, maxillary facial, neck CT Interpretation: No Acute Changes - IMPRESSION: 1. No calvarial fracture or acute intracranial hemorrhage. 2. No acute facial bone fractures. 3. No fracture or dislocation of the cervical spine. 4. Age-appropriate chronic and degenerative changes described in the body of the report. CT Interpretation Completed By: Radiologist Head Injury Course/Dx Course Of Treatment: 71M presents with fall on face today. unknown LOC. denies any symptoms currently and states holding against his will here. xray done at [facility] shows orbial fracture. on exam no ecchymosis noted. nose possible deviated unknown if that is new. abrasion that is covered in steristrip noted in nose. patient noncompliant with neuro exam but has EOMI intact and PERRLA. He was given dose of haloperidol due to yelling and telling everyone that they are the devil and technology is evil. CT neck, head, maxillaryfacial performed and no fracture or bleed seen. no orbital fracutre seen. will have follow up with primary. - Diagnoses Differential Diagnosis/HQI/PQRI: Cerebral Contusion, Concussion Without LOC, Intracranial Bleed, Orbital Fracture Provider Diagnoses: Head injury Discharge - Discharge Plan Condition: Good Disposition: HOME Patient Education Materials: Head Injury (ED) Referrals: Non Staff,Doctor [Primary Care Provider] - Additional Instructions: Follow up with primary within 2 days Return to ED if develop vomiting, change in mental status, or any new or worsening symptoms
--- NOTE | 2016-10-14 20:08 | RAD ---
indication: Left orbital swelling after a fall from bed COMPARISON: CT of the brain September 13, [address] scan of the brain, maxillofacial bones and c-spine was performed without intravenous contrast enhancement. Contiguous axial sections were obtained from the lung apices through the vertex. BRAIN: The ventricles, cisterns and sulci exhibit mild stable involutional changes. There is mild periventricular and subcortical white matter hypoattenuation most consistent with chronic microvascular disease. No significant focal abnormality or mass effect is seen. The clemons-white differentiation is adequately maintained. There is no evidence for intracranial hemorrhage. No significant bony abnormality is present. The mastoid air cells are appropriately aerated. The visualized paranasal sinuses are clear. FACIAL BONES: Bones: There is no displaced fracture or dislocation. The orbital rim is intact. The zygomatic arch is intact. The pterygoid plates are intact Orbits: The globes are round. The optic nerves are symmetric. The extraocular musculature is normal. There is no post septal or intraconal inflammatory change. There is no retrobulbar hematoma. Paranasal Sinuses: The paranasal sinuses are clear. C-SPINE: Degenerative changes of the cervical spine include loss of intervertebral disc height and exuberant marginal osteophyte formation at C4-C7. The vertebral bodies and facet joints are appropriately aligned. There is no fracture or dislocation identified. The dens is intact. There is no widening of the atlantodental interval. There is no hyperdense material in the cervical canal to indicate hemorrhage. The visualized musculature and soft tissues are normal. There is no gross lymphadenopathy visualized. The visualized portion of the lung apices are clear. IMPRESSION: 1. No calvarial fracture or acute intracranial hemorrhage. 2. No acute facial bone fractures. 3. No fracture or dislocation of the cervical spine. 4. Age-appropriate chronic and degenerative changes described in the body of the report.
[2016-10-14 20:31] VITALS: BP 154/79
== END 2016-10-14 21:31 | disposition home or self-care (01) ==
LOC: ED 16:47
DX: S09.90XA Unspecified injury of head, initial encounter (principal); W06.XXXA Fall from bed, initial encounter; Y93.9 Activity, unspecified; Y92.9 Unspecified place or not applicable
CPT/HCPCS: 70450; 70486; 72125; 96372; 99283; J1630

== ENCOUNTER 2016-11-18 16:28 | Inpatient (IN) | payer MEDICARE, MEDICAID ==
[2016-11-18] MEDS ORDERED: Acetaminophen TAB* 325 MG PO ONE (17:36)
[2016-11-18] MEDS ORDERED: Vancomycin(*) 750 MG in NS 0.9% 250 ML* 250 ML IVPB ONE (17:47)
[2016-11-18 17:48] LABS: Hematocrit 39 % (42-52); Hemoglobin 12.6 g/dl (14.0-18.0); Mean Corpuscular HGB Conc 32 g/dl (31-36); Mean Corpuscular Hemoglobin 28 pg (27-31); Mean Corpuscular Volume 86 fL (80-94); Mean Platelet Volume 8 um3 (7.4-10.4); Red Blood Count 4.55 10^6/ul (4.0-5.4); Red Cell Distribution Width 16 % (10.5-15); White Blood Count 12.1 10^3/ul (3.5-10.8)
--- NOTE | 2016-11-18 18:03 | RAD ---
INDICATION: Fever, cough, pneumonia COMPARISON: September 15, 2016 TECHNIQUE: An AP portable view obtained at 1757 hours is submitted. FINDINGS: Bones/Soft Tissues: There are no acute bony findings. Cardiomediastinal: The cardiomediastinal silhouette is normal. Lungs: There are no infiltrates. Pleura: There are no pleural effusions. Other: None IMPRESSION: NO ACTIVE DISEASE. INTERVAL RESOLUTION OF BASILAR AIRSPACE DISEASE/EFFUSIONS
[2016-11-18 18:15] LABS: Troponin I 0.06 ng/mL (<0.04)
[2016-11-18] MEDS: NS 0.9% 1000 ML* 2,000 ML IV ONE ×4 (18:20→23:58)
[2016-11-18 18:55] LABS: Albumin 3.1 g/dL (3.2-5.2); BUN/Creatinine Ratio 27.8 (8-20); C Reactive Protein 57.66 mg/L (< 5.00); Calcium 9.4 mg/dL (8.6-10.3); EGFR African American 97.8 (>60); EGFR Non-African American 76.1 (>60); Globulin 3.6 g/dL (2-4); Potassium 4.8 mmol/L (3.5-5.0); Total Bilirubin 0.6 mg/dL (0.2-1.0); Total Protein 6.7 g/dL (6.4-8.9)
[2016-11-18] MEDS ORDERED: Acetaminophen TAB* 325 MG PO PRN (20:29)
[2016-11-18] MEDS ORDERED: Polyethylene Glycol 3350* 17 GM PACKET PO PRN (20:29)
[2016-11-18] MEDS ORDERED: Haloperidol TAB* 0.5 MG PO PRN (20:29)
--- NOTE | 2016-11-18 20:45 | ED ---
Evelin Hastings Claudia, scribed for Roland Antunez MD on 11/18/16 at 1742 . HPI Febrile Illness - HPI Summary HPI Summary: 71 year old male presents to the ED with fever. Pt states that he does not know how long he has had a fever for. Pt also admits to PALACIOS, SOB, but denies cough, NV, myalgia, arthralgia. Pt knows that he is at the hospital but is unable to answer where he lives. Per EMS he is a [facility] resident. He also does not note any alleviating or aggravating factors. Level 5 caveat- confusion - History of Current Complaint Chief Complaint: EDFever Time Seen by Provider: 11/18/16 17:25 Hx Obtained From: Patient Onset/Duration: Still Present Timing: Constant Pain Intensity: 0 Pain Scale Used: 0-10 Numeric Associated Signs and Symptoms: SOB, Other: - confusion, PALACIOS - Additional Pertinent History Primary Care Physician: PATEL - Allergy/Home Medications Allergies/Adverse Reactions: Allergies Allergy/AdvReac Type Severity Reaction Status Date / Time No Known Allergies Allergy Verified 09/18/16 14:09 PMH/Surg Hx/FS Hx/Imm Hx Previously Healthy: Yes Endocrine/Hematology History: Reports: Hx Anticoagulant Therapy Denies: Hx Diabetes Cardiovascular History: Denies: Hx Hypertension, Hx Pacemaker/ICD Respiratory History: Denies: Hx Asthma Sensory History: Denies: Hx Contacts or Glasses, Hx Hearing Aid Opthamlomology History: Denies: Hx Contacts or Glasses Psychiatric History: Reports: Hx Schizophrenia Denies: Hx Panic Disorder - Surgical History Surgery Procedure, Year, and Place: HERNIA REPAIR Infectious Disease History: No Infectious Disease History: Denies: Traveled Outside the US in Last 30 Days - Family History Known Family History: Positive: Unknown - Social History Lives: Assisted Living - [place] Alcohol Use: None Substance Use Type: Reports: None Smoking Status (MU): Unknown if Ever Smoked Review of Systems - ROS Summary Review of Systems Summary: level 5 caveat- confusion Positive: Fever Eyes: Negative ENT: Negative Cardiovascular: Negative Positive: Shortness Of Breath. Negative: Cough Negative: Abdominal Pain, Vomiting, Nausea Genitourinary: Negative Musculoskeletal: Negative Negative: Arthralgia, Myalgia Skin: Negative Positive: Headache Psychological: Normal All Other Systems Reviewed And Are Negative: Yes Physical Exam - Summary Physical Exam Summary: The patient is mildly ill appearing. The skin is warm and dry, decreased skin turgor. HEENT: The head is normocephalic and atraumatic. The pupils are equal and reactive. The conjunctivae are clear and without drainage. Nares are patent and without drainage. Mouth reveals dry mucous membranes and the throat is without erythema and exudate. The external ears are intact. The ear canals are patent and without drainage. The tympanic membranes are intact. No rhinorrhea. Neck is supple with full range of motion and non-tender. There are no carotid bruits. There is no neck vein distension. Respiratory: Chest is non-tender. Lungs are clear to auscultation with decreased breath sounds. Cardiovascular: Hear is regular rate and rhythm. There is no murmur or rub auscultated. There is no peripheral edema and pulses are symmetrical and equal. Abdomen: The abdomen is soft and non-tender. There are normal bowel sounds heard in all four quadrants and there is no organomegaly palpated. Musculoskeletal: There is no back pain noted. Extremities are non-tender with full range of motion. There is good capillary refill 3 seconds. There is no peripheral edema or calf tenderness elicited. Modeled in his legs. Neurological: Pt is confused and knows place but does not know where he lives. Psychiatric: The patient has an appropriate affect and does not exhibit any anxiety or depression. Level 5 caveat - confusion Triage Information Reviewed: Yes Vital Signs On Initial Exam: Initial Vitals Temp Pulse Resp BP Pulse Ox 101.6 F 134 30 136/90 99 11/18/16 16:37 11/18/16 16:37 11/18/16 16:37 11/18/16 16:37 11/18/16 16:37 Vital Signs Reviewed: Yes Diagnostics - Vital Signs Vital Signs Temp Pulse Resp BP Pulse Ox 11/18/16 16:37 101.6 F 134 30 136/90 99 - Laboratory Lab Results: Lab Results 11/18/16 11/18/16 11/18/16 Range/Units 17:15 17:15 17:15 WBC 12.1 H (3.5-10.8) 10^3/ul RBC 4.55 (4.0-5.4) 10^6/ul Hgb 12.6 L (14.0-18.0) g/dl Hct 39 L (42-52) % MCV 86 (80-94) fL MCH 28 (27-31) pg MCHC 32 (31-36) g/dl RDW 16 H (10.5-15) % Plt Count 254 (150-450) 10^3/ul MPV 8 (7.4-10.4) um3 Neut % (Auto) 96.3 H (38-83) % Lymph % (Auto) 1.3 L (25-47) % [place] % (Auto) 1.9 (1-9) % Eos % (Auto) 0 (0-6) % Baso % (Auto) 0.5 (0-2) % Absolute Neuts (auto) 11.7 H (1.5-7.7) 10^3/ul Absolute Lymphs (auto) 0.2 L (1.0-4.8) 10^3/ul Absolute Monos (auto) 0.2 (0-0.8) 10^3/ul Absolute Eos (auto) 0 (0-0.6) 10^3/ul Absolute Basos (auto) 0.1 (0-0.2) 10^3/ul Absolute Nucleated RBC 0 10^3/ul Nucleated RBC % 0 INR (Anticoag Therapy) 0.92 (0.89-1.11) APTT 27.4 (26.0-36.3) seconds Sodium 133 (133-145) mmol/L Potassium 4.8 (3.5-5.0) mmol/L Chloride 98 L (101-111) mmol/L Carbon Dioxide 23 (22-32) mmol/L Anion Gap 12 H (2-11) mmol/L BUN 27 H (6-24) mg/dL Creatinine 0.97 (0.67-1.17) mg/dL Est GFR ( Amer) 97.8 (>60) Est GFR (Non-Af Amer) 76.1 (>60) BUN/Creatinine Ratio 27.8 H (8-20) Glucose 87 (70-100) mg/dL Lactic Acid (0.5-2.0) mmol/L Calcium 9.4 (8.6-10.3) mg/dL Total Bilirubin 0.60 (0.2-1.0) mg/dL AST 17 (13-39) U/L ALT 8 (7-52) U/L Alkaline Phosphatase 106 H (34-104) U/L Troponin I 0.06 H* (<0.04) ng/mL C-Reactive Protein 57.66 H (< 5.00) mg/L Total Protein 6.7 (6.4-8.9) g/dL Albumin 3.1 L (3.2-5.2) g/dL Globulin 3.6 (2-4) g/dL Albumin/Globulin Ratio 0.9 L (1-3) 11/18/16 Range/Units 17:15 WBC (3.5-10.8) 10^3/ul RBC (4.0-5.4) 10^6/ul Hgb (14.0-18.0) g/dl Hct (42-52) % MCV (80-94) fL MCH (27-31) pg MCHC (31-36) g/dl RDW (10.5-15) % Plt Count (150-450) 10^3/ul MPV (7.4-10.4) um3 Neut % (Auto) (38-83) % Lymph % (Auto) (25-47) % [place] % (Auto) (1-9) % Eos % (Auto) (0-6) % Baso % (Auto) (0-2) % Absolute Neuts (auto) (1.5-7.7) 10^3/ul Absolute Lymphs (auto) (1.0-4.8) 10^3/ul Absolute Monos (auto) (0-0.8) 10^3/ul Absolute Eos (auto) (0-0.6) 10^3/ul Absolute Basos (auto) (0-0.2) 10^3/ul Absolute Nucleated RBC 10^3/ul Nucleated RBC % INR (Anticoag Therapy) (0.89-1.11) APTT (26.0-36.3) seconds Sodium (133-145) mmol/L Potassium (3.5-5.0) mmol/L Chloride (101-111) mmol/L Carbon Dioxide (22-32) mmol/L Anion Gap (2-11) mmol/L BUN (6-24) mg/dL Creatinine (0.67-1.17) mg/dL Est GFR ( Amer) (>60) Est GFR (Non-Af Amer) (>60) BUN/Creatinine Ratio (8-20) Glucose (70-100) mg/dL Lactic Acid 3.2 H* (0.5-2.0) mmol/L Calcium (8.6-10.3) mg/dL Total Bilirubin (0.2-1.0) mg/dL AST (13-39) U/L ALT (7-52) U/L Alkaline Phosphatase (34-104) U/L Troponin I (<0.04) ng/mL C-Reactive Protein (< 5.00) mg/L Total Protein (6.4-8.9) g/dL Albumin (3.2-5.2) g/dL Globulin (2-4) g/dL Albumin/Globulin Ratio (1-3) Result Diagrams: 11/18/16 17:15 11/18/16 17:15 Lab Statement: Any lab studies that have been ordered have been reviewed, and results considered in the medical decision making process. - Radiology CXR Xray Interpretation: No Acute Changes - NO ACTIVE DISEASE. INTERVAL RESOLUTION OF BASILAR AIRSPACE DISEASE/EFFUSIONS. Radiology Interpretation Completed By: Radiologist - EKG 1717 EKG Rhythm: Sinus Tachycardia - 126 beats/min EKG Interpretation: LVH, nml axis, no STEMI Course/Dx - Course Assessment/Plan: MDM: 71 year old pt presents to the ED with fever,decreased LOC , tachycardia. Unsure of the source, has skin ulcers and has catheter placed. Elevated WBC, started on antibiotics and ibuprofen for fever. Discussed pt with Dr. Garcia. - Febrile Illness Differential Diagnoses: Bacteremia, Pneumonia, Pyelonephritis, Sepsis - Diagnoses Provider Diagnoses: Sepsis - Provider Notifications Discussed Care Of Patient With: Discussed care of pt with Dr. Garcia Time Discussed With Above Provider: 18:15 - Critical Care Time Critical Care Time: 30-74 min Discharge - Discharge Plan Condition: Stable Disposition: ADMITTED TO [facility] documentation as recorded by the Evelin knowles Claudia accurately reflects the service I personally performed and the decisions made by , Roland Antunez MD.
[2016-11-18] MEDS ORDERED: Morphine INJ* 4 MG/ML 1 ML SYRINGE IV PRN (21:36)
--- NOTE | 2016-11-18 22:25 | RAD ---
INDICATION: Sepsis. Abdominal pain COMPARISON: External CT abdomen pelvis September 13, 2016 TECHNIQUE: Noncontrast axial source images were obtained from the hemidiaphragms to the symphysis pubis. This examination was ordered using a renal stone protocol which is performed without oral or intravenous contrast and therefore has inherent limitations when used to evaluate other intra-abdominal or intrapelvic pathology. Consider conventional contrast enhanced imaging if clinically. There for the limitations due to positioning this patient with presumed contracture deformities. Lung bases: The lung bases are clear. Liver: .The liver is normal in size. Noncontrast imaging shows incompletely characterized hepatic hypodensities appearing unchanged and most consistent with cysts Gallbladder: There are no calcified gallstones. There is no evidence of wall thickening or pericholecystic fluid.. Spleen: No gross abnormalities. Pancreas: Not well evaluated. Adrenal glands: Not clearly identified. Kidneys/Bladder: Very limited examination. Left-sided nephrolithiasis. Mild fullness of the collecting systems bilaterally may be related to bladder distention. There is a Hemphill catheter in place which presumably is clamped. There is radiodense segment or there is a consultation bladder wall presents with focal mural thickening. Adenopathy: There is no evidence of intraperitoneal or retroperitoneal adenopathy. Evaluation is limited without oral contrast. Fluid collections: No significant localized fluid collections. Anasarca.. Vessels: . Limited evaluation. No definitive aneurysm Pelvic organs: The prostate is enlarged GI tract: Evaluation of the bowel is limited without oral contrast. No obstructive process. Soft tissues: Dictation edema. Osseous structures: There are no acute osseous findings. IMPRESSION: 1. This is a very limited examination. There is no oral intravenous contrast and there are contracture deformities. There is also a paucity of fat planes. 2. No obstructive left-sided nephrolithiasis. 3. Bladder distention. This likely accounts for mild fullness of the collecting systems bilaterally. There are calcifications in the bladder there may be focal mural thickening. This could be evaluated cystoscopically.
[2016-11-18 23:39] LABS: Urine Bacteria 1+ (Absent); Urine Bilirubin Negative (Negative); Urine Glucose Negative (Negative); Urine Nitrite Negative (Negative)
--- NOTE | 2016-11-19 00:38 | HP ---
HOSPITAL MEDICINE HISTORY AND PHYSICAL: DATE OF ADMISSION: 11/18/16 ATTENDING PHYSICIAN: Dr. Kyrie Garcia* (dictation provided by Elham Abdi NP). CHIEF COMPLAINT: Fever. HISTORY OF PRESENT ILLNESS: Mr. Griggs is a 69-year-old male with past medical history of paranoid schizophrenia, who resides at [facility], who presented to the hospital today with fever. Mr. Griggs is unable to provide any information today due to his underlying schizophrenia. He was sent over from [facility] out of concern for fever. No other information was directly available. In the emergency room, Mr. Griggs had fever to 101.6, his heart rate was elevated to 106, was initially 125. His blood pressure stable at 123/74. Labs showed a mild leukocytosis with a white count of 12.1. His lactic acid was elevated to 3.2, troponin to 0.06. Urinalysis is pending. Chest x-ray shows no acute process. Blood cultures were also sent. PAST MEDICAL HISTORY: 1. History of MSSA bacteremia with sepsis. 2. Obstructive kidney injury, now resolved with chronic Hemphill. 3. Paranoid schizophrenia. MEDICATIONS: 1. Tylenol p.r.n. 2. MiraLAX p.r.n. 3. Haldol p.r.n. 4. Xarelto 15 mg p.o. daily. ALLERGIES: No known drug allergies. FAMILY HISTORY: Unobtainable. SOCIAL HISTORY: The patient currently resides at [facility]. No further history available. REVIEW OF SYSTEMS: A 14-point review of systems was unable to be completed on Mr. Griggs because of his paranoid schizophrenia and possibly overlying confusion. PHYSICAL EXAMINATION GENERAL: Mr. Griggs is lying in the bed. He is in no acute distress. VITAL SIGNS: Temperature 101.6, heart rate 106, respiratory rate 21, O2 saturation 100% on room air, blood pressure 118/79. LUNGS: Clear to auscultation bilaterally with no accessory muscle use and good aeration. HEART: S1, S2. No murmur, rub or gallop and regular. ABDOMEN: Soft, but appears tender especially in the lower abdomen, though his mental status makes it somewhat difficult to fully appreciate. Bowel sounds are positive. EXTREMITIES: No cyanosis, no edema. NEUROLOGIC: He is alert. He knows his name. He is unclear about where he is. He is able to follow commands easily. There is no focal weakness or facial asymmetry. Extraocular movements are intact. SKIN: Patient has a meraplex to his right shoulder blade, unable to visualize buttocks well due to patient's resistance to being respositioned in bed. Plan for follow up assessment after patient admitted. DIAGNOSTIC STUDIES/LABORATORY DATA: WBC 12.1, hemoglobin 12.6, hematocrit 39, platelet count 254. INR 0.92. Sodium 133, potassium 4.8, chloride 98, serum bicarbonate 23, BUN 27, creatinine 0.97, glucose 87, lactic acid 3.2, troponin 0.06. CRP 57.66. Chest x-ray shows no acute process. EKG shows sinus rhythm and no evidence of ischemia. ASSESSMENT: Mr. Griggs is a 71-year-old male with a past medical history of Staph aureus bacteremia and paranoid schizophrenia, who currently resides at [facility], who presents today to the hospital with concern for fever. Our plans are for inpatient admission as the expected length of stay will be greater than 2 days for the following. 1. Sepsis. The patient has a fever. He is tachycardic, has a mild white count and possibly had some overlying confusion on top of his baseline paranoid schizophrenia. Regardless, his lactic acid is only 3. His heart rate has responded well to IV fluids. Plan to continue with intravenous fluids and recheck lactic acid shortly. The patient has a chronic indwelling Hemphill and I have a high suspicion that this is the source of his infection, but a urinalysis is pending. Blood cultures have also been drawn, chest xray is negative. On palpation, the patient does seem tenderness in the lower abdomen. Plan for a CT abdomen and pelvis now. Patient does have a history of pressure ulcers which could also be the source of infection, though I am more concerned for UTI at this point. 2. Paranoid schizophrenia. Continue his Haldol p.r.n. 3. Hx of DVT. The patient is currently on Xarelto. I do not see in the record a history of a DVT, but this is noted on the information from [facility]. 4. Elevated troponin. The patient's troponin is mildly elevated. I think this is probably due to sepsis and demand ischemia, but we will repeat troponins and monitor on telemetry overnight. 5. Code status is DNR. 6. Disposition will be to the telemetry floor. TIME SPENT: Approximately 60 minutes were spent on the admission of this patient, more than half the time was spent with the patient at the bedside reviewing the events leading up to this hospitalization, performing the physical examination, and reviewing the plan of care. ELHAM ABDI NP CC: Providers at [facility].* [id number]/CPS #: [id number] MTDMarie
[2016-11-19] MEDS: NS 0.9% 1000 ML* 1,000 ML IV SCH ×4 (01:44→23:25)
--- NOTE | 2016-11-19 06:59 | PN ---
Progress Note - Progress Note Note: Patient noted to have poor urine output and tenderness in abdomen. Suspect smith not draining properly. Pt ordered to have new smith placed and CT abd/ pelvis ordered, given his mental status and the seemingly more diffuse nature of his abdominal pain. He was found to have distended bladder but no other acute findings, though study was limited by lack of contrast. Informed nursing staff of findings and requested smith catheter be placed and UA be sent.
[2016-11-19] MEDS ORDERED: cefTRIAXone VIAL(*) 1,000 MG in NS 0.9% 50 ML* 50 ML IVPB SCH (07:00)
[2016-11-19 08:31] LABS: Hematocrit 30 % (42-52); Hemoglobin 9.4 g/dl (14.0-18.0); Mean Corpuscular HGB Conc 32 g/dl (31-36); Mean Corpuscular Hemoglobin 28 pg (27-31); Mean Corpuscular Volume 88 fL (80-94); Mean Platelet Volume 8 um3 (7.4-10.4); Red Blood Count 3.39 10^6/ul (4.0-5.4); Red Cell Distribution Width 17 % (10.5-15); White Blood Count 45.4 10^3/ul (3.5-10.8)
[2016-11-19 08:32] LABS: Add Diff/Slide Review? Slide Review Added; Comments Flag Yes
[2016-11-19 08:40] LABS: BUN/Creatinine Ratio 31.6 (8-20); Calcium 8.3 mg/dL (8.6-10.3); EGFR Non-African American 96.4 (>60); Potassium 3.8 mmol/L (3.5-5.0)
[2016-11-19 09:27] LABS: Immature Granulocytes 23 % (0-9); Metamyelocytes % 4 % (0-2); Myelocytes % 3 % (0-1); Neutrophil % 69 % (38-83); RBC Morphology Normal (Normal); Toxic Granulation 1+
[2016-11-19] MEDS ORDERED: NS 0.9% 1000 ML* 1,000 ML IV ONE (11:13)
[2016-11-19] MEDS: Cefepime(*) 1 GM in NS 0.9% 50 ML* 50 ML IVPB SCH ×2 (11:43→23:25)
--- NOTE | 2016-11-19 11:58 | PN ---
Subjective Date of Service: 11/19/16 Interval History: Mr. Griggs is lethargic today but does answer all questions and follow commands appropriately. He denies abdominal pain or nausea. He denies chest pain or SOB. Objective Active Medications: Acetaminophen (Tylenol Tab*) 650 mg PO Q6H PRN Haloperidol (Haldol Tab*) 0.5 mg PO Q6H PRN Sodium Chloride (Ns 0.9% 1000 Ml*) 1,000 mls @ 150 mls/hr IV PER RATE RAFAEL Sodium Chloride (Ns 0.9% 1000 Ml*) 1,000 mls @ 1,000 mls/hr IV .PER RATE ONE Cefepime HCl 1 gm/ Sodium (Chloride) 50 mls @ 100 mls/hr IVPB Q12H RAFAEL Morphine Sulfate (Morphine Inj (Syringe)*) 4 mg IV Q4H PRN Polyethylene Glycol/Electrolytes (Miralax*) 17 gm PO DAILY PRN Rivaroxaban (Xarelto(*)) 15 mg PO 1900 [facility] Vital Signs 11/18/16 11/18/16 11/18/16 20:30 21:41 22:41 Temperature 99.9 F Pulse Rate 110 Respiratory 20 18 18 Rate Blood Pressure 124/51 (mmHg) O2 Sat by Pulse 100 Oximetry 11/19/16 11/19/16 11/19/16 00:36 04:53 07:30 Temperature 97.6 F Pulse Rate 106 108 Respiratory 20 20 Rate Blood Pressure 90/50 99/54 109/47 (mmHg) O2 Sat by Pulse 100 99 Oximetry 11/19/16 11/19/16 11/19/16 07:55 08:02 11:10 Temperature 98.0 F 97.8 F Pulse Rate 105 97 Respiratory 20 22 22 Rate Blood Pressure 88/46 107/59 (mmHg) O2 Sat by Pulse 97 98 100 Oximetry Oxygen Devices in Use Now: None Appearance: Cachectic male lying in bed in NAD Eyes: No Scleral Icterus Ears/Nose/Mouth/Throat: Mucous Membranes Moist Neck: NL Appearance and Movements; NL JVP Respiratory: Symmetrical Chest Expansion and Respiratory Effort, Clear to Auscultation Cardiovascular: NL Sounds; No Murmurs; No JVD, No Edema Abdominal: NL Sounds; No Tenderness; No Distention Extremities: No Edema Skin: No Rash or Ulcers Neurological: - - patient able to move left arm slightly at the elbow, no other movement noted Result Diagrams: 11/19/16 07:55 11/19/16 07:55 Additional Lab and Data: Lab Results 11/18/16 11/18/16 11/18/16 Range/Units 17:15 17:15 17:15 WBC 12.1 H (3.5-10.8) 10^3/ul RBC 4.55 (4.0-5.4) 10^6/ul Hgb 12.6 L (14.0-18.0) g/dl Hct 39 L (42-52) % MCV 86 (80-94) fL MCH 28 (27-31) pg MCHC 32 (31-36) g/dl RDW 16 H (10.5-15) % Plt Count 254 (150-450) 10^3/ul MPV 8 (7.4-10.4) um3 Neut % (Auto) 96.3 H (38-83) % Lymph % (Auto) 1.3 L (25-47) % [place] % (Auto) 1.9 (1-9) % Eos % (Auto) 0 (0-6) % Baso % (Auto) 0.5 (0-2) % Absolute Neuts (auto) 11.7 H (1.5-7.7) 10^3/ul Absolute Lymphs (auto) 0.2 L (1.0-4.8) 10^3/ul Absolute Monos (auto) 0.2 (0-0.8) 10^3/ul Absolute Eos (auto) 0 (0-0.6) 10^3/ul Absolute Basos (auto) 0.1 (0-0.2) 10^3/ul Absolute Nucleated RBC 0 10^3/ul Nucleated RBC % 0 INR (Anticoag Therapy) 0.92 (0.89-1.11) APTT 27.4 (26.0-36.3) seconds Sodium 133 (133-145) mmol/L Potassium 4.8 (3.5-5.0) mmol/L Chloride 98 L (101-111) mmol/L Carbon Dioxide 23 (22-32) mmol/L Anion Gap 12 H (2-11) mmol/L BUN 27 H (6-24) mg/dL Creatinine 0.97 (0.67-1.17) mg/dL Est GFR ( Amer) 97.8 (>60) Est GFR (Non-Af Amer) 76.1 (>60) BUN/Creatinine Ratio 27.8 H (8-20) Glucose 87 (70-100) mg/dL Lactic Acid (0.5-2.0) mmol/L Calcium 9.4 (8.6-10.3) mg/dL Total Bilirubin 0.60 (0.2-1.0) mg/dL AST 17 (13-39) U/L ALT 8 (7-52) U/L Alkaline Phosphatase 106 H (34-104) U/L Troponin I 0.06 H* (<0.04) ng/mL C-Reactive Protein 57.66 H (< 5.00) mg/L Total Protein 6.7 (6.4-8.9) g/dL Albumin 3.1 L (3.2-5.2) g/dL Globulin 3.6 (2-4) g/dL Albumin/Globulin Ratio 0.9 L (1-3) 11/18/16 Range/Units 17:15 WBC (3.5-10.8) 10^3/ul RBC (4.0-5.4) 10^6/ul Hgb (14.0-18.0) g/dl Hct (42-52) % MCV (80-94) fL MCH (27-31) pg MCHC (31-36) g/dl RDW (10.5-15) % Plt Count (150-450) 10^3/ul MPV (7.4-10.4) um3 Neut % (Auto) (38-83) % Lymph % (Auto) (25-47) % [place] % (Auto) (1-9) % Eos % (Auto) (0-6) % Baso % (Auto) (0-2) % Absolute Neuts (auto) (1.5-7.7) 10^3/ul Absolute Lymphs (auto) (1.0-4.8) 10^3/ul Absolute Monos (auto) (0-0.8) 10^3/ul Absolute Eos (auto) (0-0.6) 10^3/ul Absolute Basos (auto) (0-0.2) 10^3/ul Absolute Nucleated RBC 10^3/ul Nucleated RBC % INR (Anticoag Therapy) (0.89-1.11) APTT (26.0-36.3) seconds Sodium (133-145) mmol/L Potassium (3.5-5.0) mmol/L Chloride (101-111) mmol/L Carbon Dioxide (22-32) mmol/L Anion Gap (2-11) mmol/L BUN (6-24) mg/dL Creatinine (0.67-1.17) mg/dL Est GFR ( Amer) (>60) Est GFR (Non-Af Amer) (>60) BUN/Creatinine Ratio (8-20) Glucose (70-100) mg/dL Lactic Acid 3.2 H* (0.5-2.0) mmol/L Calcium (8.6-10.3) mg/dL Total Bilirubin (0.2-1.0) mg/dL AST (13-39) U/L ALT (7-52) U/L Alkaline Phosphatase (34-104) U/L Troponin I (<0.04) ng/mL C-Reactive Protein (< 5.00) mg/L Total Protein (6.4-8.9) g/dL Albumin (3.2-5.2) g/dL Globulin (2-4) g/dL Albumin/Globulin Ratio (1-3) Microbiology and Other Data: Microbiology 11/18/16 23:18 Nasal Screen MRSA (PCR)(ARINA) - Final Nasal Mrsa Positive 11/18/16 23:18 Influenza Types A,B Antigen (ARINA) - Final Nasal Specimen received for Influenza A/B Molecular testing Assess/Plan/Problems-Billing Assessment:
[2016-11-19] MEDS ORDERED: Rivaroxaban TAB(*) 15 MG PO SCH (19:00)
[2016-11-20] MEDS: Haloperidol INJ IV/IM* 5 MG/ML AMP IV SLOW PU PRN ×2 (02:23→21:32)
[2016-11-20 05:59] LABS: Add Diff/Slide Review? Slide Review Added; Comments Flag Yes; Hematocrit 29 % (42-52); Hemoglobin 9.2 g/dl (14.0-18.0); Mean Corpuscular HGB Conc 32 g/dl (31-36); Mean Corpuscular Hemoglobin 28 pg (27-31); Mean Corpuscular Volume 88 fL (80-94); Mean Platelet Volume 8 um3 (7.4-10.4); Red Blood Count 3.26 10^6/ul (4.0-5.4); Red Cell Distribution Width 17 % (10.5-15); White Blood Count 35.6 10^3/ul (3.5-10.8)
[2016-11-20 06:23] LABS: Calcium 8.8 mg/dL (8.6-10.3); EGFR African American 210.2 (>60); EGFR Non-African American 163.5 (>60)
[2016-11-20 06:35] LABS: Eosinophils % 1 % (0-6); Immature Granulocytes 47 % (0-9); Neutrophil % 49 % (38-83); RBC Morphology Normal (Normal)
[2016-11-20] MEDS: NS 0.9% 1000 ML* 1,000 ML IV SCH ×2 (10:44→21:34)
[2016-11-20] MEDS ORDERED: KCL 20 MEQ/100 ML IVPREMIX* 20 MEQ/100 ML BAG IV ONE (10:47)
[2016-11-20] MEDS ORDERED: Potassium Chloride LIQUID* 20 MEQ PACKET PO ONE (10:47)
--- NOTE | 2016-11-20 11:05 | PN ---
Subjective Date of Service: 11/20/16 Interval History: Pt states he does not trust doctors when I introduce myself. He starts screaming that he can not have milk because he is allergic. He starts screaming when I ask him if he has pain as he states everyone is asking him the same questions. He in fact does not answer the question if he has pain. When I try to explain that we think he has an infection he screams "its the milk." Objective Active Medications: Acetaminophen (Tylenol Tab*) 650 mg PO Q6H PRN PRN Reason: Pain/fever Last Admin: 11/18/16 21:44 Dose: 650 mg Haloperidol (Haldol Tab*) 0.5 mg PO Q6H PRN PRN Reason: AGITATION Haloperidol Lactate (Haldol Inj Iv/Im*) 0.5 mg IV SLOW PU Q6H PRN PRN Reason: AGITATION Last Admin: 11/20/16 02:23 Dose: 0.5 mg Sodium Chloride (Ns 0.9% 1000 Ml*) 1,000 mls @ 150 mls/hr IV PER RATE [facility] Last Admin: 11/20/16 10:44 Dose: 150 mls/hr Cefepime HCl 1 gm/ Sodium (Chloride) 50 mls @ 100 mls/hr IVPB Q12H [facility] Last Admin: 11/19/16 23:25 Dose: 100 mls/hr Potassium Chloride (Potassium Chloride 20 Meq/100 Ml Ivpremix*) 20 meq in 100 mls @ 50 mls/hr IV ONCE ONE Stop: 11/20/16 12:46 Morphine Sulfate (Morphine Inj (Syringe)*) 4 mg IV Q4H PRN PRN Reason: PAIN Last Admin: 11/18/16 21:41 Dose: 4 mg Polyethylene Glycol/Electrolytes (Miralax*) 17 gm PO DAILY PRN PRN Reason: CONSTIPATION Rivaroxaban (Xarelto(*)) 15 mg PO 1900 [facility] Last Admin: 11/19/16 21:12 Dose: Not Given Vital Signs 11/19/16 11/19/16 11/19/16 11:10 19:40 19:44 Temperature 97.8 F 97.8 F Pulse Rate 97 102 Respiratory 22 20 Rate Blood Pressure 107/59 105/54 (mmHg) O2 Sat by Pulse 100 100 Oximetry 11/20/16 11/20/16 00:00 04:28 Temperature 100.0 F 98.9 F Pulse Rate 106 80 Respiratory 20 18 Rate Blood Pressure 118/66 110/56 (mmHg) O2 Sat by Pulse 99 94 Oximetry Oxygen Devices in Use Now: None Appearance: Elderly thin male sitting up in bed, NAD Eyes: No Scleral Icterus Ears/Nose/Mouth/Throat: Mucous Membranes Moist Respiratory: - - pt refuses Cardiovascular: - - pt refuses Abdominal: - - pt refuses Skin: - - small skin tear to medial R knee Neurological: - - oriented to place, very upset about my presence Result Diagrams: 11/20/16 05:41 11/20/16 05:41 Additional Lab and Data: Lab Results 11/18/16 11/18/16 11/18/16 Range/Units 17:15 17:15 17:15 WBC 12.1 H (3.5-10.8) 10^3/ul RBC 4.55 (4.0-5.4) 10^6/ul Hgb 12.6 L (14.0-18.0) g/dl Hct 39 L (42-52) % MCV 86 (80-94) fL MCH 28 (27-31) pg MCHC 32 (31-36) g/dl RDW 16 H (10.5-15) % Plt Count 254 (150-450) 10^3/ul MPV 8 (7.4-10.4) um3 Neut % (Auto) 96.3 H (38-83) % Lymph % (Auto) 1.3 L (25-47) % [place] % (Auto) 1.9 (1-9) % Eos % (Auto) 0 (0-6) % Baso % (Auto) 0.5 (0-2) % Absolute Neuts (auto) 11.7 H (1.5-7.7) 10^3/ul Absolute Lymphs (auto) 0.2 L (1.0-4.8) 10^3/ul Absolute Monos (auto) 0.2 (0-0.8) 10^3/ul Absolute Eos (auto) 0 (0-0.6) 10^3/ul Absolute Basos (auto) 0.1 (0-0.2) 10^3/ul Absolute Nucleated RBC 0 10^3/ul Nucleated RBC % 0 INR (Anticoag Therapy) 0.92 (0.89-1.11) APTT 27.4 (26.0-36.3) seconds Sodium 133 (133-145) mmol/L Potassium 4.8 (3.5-5.0) mmol/L Chloride 98 L (101-111) mmol/L Carbon Dioxide 23 (22-32) mmol/L Anion Gap 12 H (2-11) mmol/L BUN 27 H (6-24) mg/dL Creatinine 0.97 (0.67-1.17) mg/dL Est GFR ( Amer) 97.8 (>60) Est GFR (Non-Af Amer) 76.1 (>60) BUN/Creatinine Ratio 27.8 H (8-20) Glucose 87 (70-100) mg/dL Lactic Acid (0.5-2.0) mmol/L Calcium 9.4 (8.6-10.3) mg/dL Total Bilirubin 0.60 (0.2-1.0) mg/dL AST 17 (13-39) U/L ALT 8 (7-52) U/L Alkaline Phosphatase 106 H (34-104) U/L Troponin I 0.06 H* (<0.04) ng/mL C-Reactive Protein 57.66 H (< 5.00) mg/L Total Protein 6.7 (6.4-8.9) g/dL Albumin 3.1 L (3.2-5.2) g/dL Globulin 3.6 (2-4) g/dL Albumin/Globulin Ratio 0.9 L (1-3) 11/18/16 Range/Units 17:15 WBC (3.5-10.8) 10^3/ul RBC (4.0-5.4) 10^6/ul Hgb (14.0-18.0) g/dl Hct (42-52) % MCV (80-94) fL MCH (27-31) pg MCHC (31-36) g/dl RDW (10.5-15) % Plt Count (150-450) 10^3/ul MPV (7.4-10.4) um3 Neut % (Auto) (38-83) % Lymph % (Auto) (25-47) % [place] % (Auto) (1-9) % Eos % (Auto) (0-6) % Baso % (Auto) (0-2) % Absolute Neuts (auto) (1.5-7.7) 10^3/ul Absolute Lymphs (auto) (1.0-4.8) 10^3/ul Absolute Monos (auto) (0-0.8) 10^3/ul Absolute Eos (auto) (0-0.6) 10^3/ul Absolute Basos (auto) (0-0.2) 10^3/ul Absolute Nucleated RBC 10^3/ul Nucleated RBC % INR (Anticoag Therapy) (0.89-1.11) APTT (26.0-36.3) seconds Sodium (133-145) mmol/L Potassium (3.5-5.0) mmol/L Chloride (101-111) mmol/L Carbon Dioxide (22-32) mmol/L Anion Gap (2-11) mmol/L BUN (6-24) mg/dL Creatinine (0.67-1.17) mg/dL Est GFR ( Amer) (>60) Est GFR (Non-Af Amer) (>60) BUN/Creatinine Ratio (8-20) Glucose (70-100) mg/dL Lactic Acid 3.2 H* (0.5-2.0) mmol/L Calcium (8.6-10.3) mg/dL Total Bilirubin (0.2-1.0) mg/dL AST (13-39) U/L ALT (7-52) U/L Alkaline Phosphatase (34-104) U/L Troponin I (<0.04) ng/mL C-Reactive Protein (< 5.00) mg/L Total Protein (6.4-8.9) g/dL Albumin (3.2-5.2) g/dL Globulin (2-4) g/dL Albumin/Globulin Ratio (1-3) Microbiology and Other Data: Microbiology 11/18/16 23:18 Nasal Screen MRSA (PCR)([facility]INA) - Final Nasal Mrsa Positive 11/18/16 23:18 Influenza Types A,B Antigen (ARINA) - Final Nasal Specimen received for Influenza A/B Molecular testing Assess/Plan/Problems-Billing Mr. Griggs is a 71 yo M who has a h/o schizophrenia who was brought in from [facility] with c/o fever and was admitted for evaluation of infection. - Patient Problems (1) Gram negative sepsis Current Visit: Yes Status: Acute Comment: Blood cultures have grown proteus mirabilis in 4 of 4 bottles. His urine was likely the source. Continue cefepime for now and await sensitivities. (2) UTI (urinary tract infection) Current Visit: Yes Status: Acute Comment: Likely proteus UTI but culture is not back. Will continue cefepime for now. Await sensitivities. (3) Urinary retention Current Visit: Yes Status: Acute Code(s): R33.9 - RETENTION OF URINE, UNSPECIFIED SNOMED Code(s): 199385850 Comment: Hemphill was obstructed on presentation to ER. Hemphill is now draining appropriately. (4) Paranoid schizophrenia Current Visit: Yes Status: Acute Code(s): F20.0 - PARANOID SCHIZOPHRENIA SNOMED Code(s): 15733216 Comment: Continue current haldol dosing. Pt is paranoid about doctors. (5) DVT prophylaxis Current Visit: Yes Status: Acute Code(s): KTN5322 - SNOMED Code(s): 690053404 Comment: ignacia (6) Full code status Current Visit: Yes Status: Acute Code(s): Z78.9 - OTHER SPECIFIED HEALTH STATUS SNOMED Code(s): 309584263
[2016-11-20] MEDS: Cefepime(*) 1 GM in NS 0.9% 50 ML* 50 ML IVPB SCH ×2 (11:47→23:22)
[2016-11-21] MEDS: Heparin VIAL(*) 5000 UNITS/ML VIAL (FIVE THOUSAND) SUBCUT SCH ×3 (05:18→22:22)
[2016-11-21] MEDS: cefTRIAXone VIAL(*) 1,000 MG in NS 0.9% 50 ML* 50 ML IVPB SCH (12:58)
--- NOTE | 2016-11-21 14:56 | PN ---
Subjective Date of Service: 11/21/16 Interval History: Pt states he was happy to get up to the chair earlier today. We began to talk about the fall he had at the end of 08/2016 and he starts yelling that it was not an accident but MARLYN contributed to his fall. He also states that no-one wants him to walk and that when we state we want him up and about he states "that is just a political statement." He states his bottom is not bothering him. Objective Active Medications: Acetaminophen (Tylenol Tab*) 650 mg PO Q6H PRN PRN Reason: Pain/fever Last Admin: 11/18/16 21:44 Dose: 650 mg Haloperidol (Haldol Tab*) 0.5 mg PO Q6H PRN PRN Reason: AGITATION Haloperidol Lactate (Haldol Inj Iv/Im*) 0.5 mg IV SLOW PU Q6H PRN PRN Reason: AGITATION Last Admin: 11/20/16 21:32 Dose: 0.5 mg Heparin Sodium (Porcine) (Heparin Vial(*)) 5,000 units SUBCUT Q8HR [facility] Last Admin: 11/21/16 05:18 Dose: Not Given Ceftriaxone Sodium 1,000 mg/ (Sodium Chloride) 50 mls @ 200 mls/hr IVPB Q24H [facility]FA[facility] Last Admin: 11/21/16 12:58 Dose: 200 mls/hr Morphine Sulfate (Morphine Inj (Syringe)*) 4 mg IV Q4H PRN PRN Reason: PAIN Last Admin: 11/18/16 21:41 Dose: 4 mg Polyethylene Glycol/Electrolytes (Miralax*) 17 gm PO DAILY PRN PRN Reason: CONSTIPATION Vital Signs 11/20/16 11/20/16 11/21/16 15:56 19:37 00:00 Temperature 99.3 F Pulse Rate 83 89 Respiratory 16 20 16 Rate Blood Pressure 152/75 155/79 (mmHg) O2 Sat by Pulse 99 98 Oximetry 11/21/16 11/21/16 04:00 08:04 Temperature 98.9 F 97.8 F Pulse Rate 69 73 Respiratory 20 20 Rate Blood Pressure 152/97 152/77 (mmHg) O2 Sat by Pulse 100 99 Oximetry Oxygen Devices in Use Now: None Appearance: Elderly male sitting up in bed, awake, NAD Eyes: No Scleral Icterus Ears/Nose/Mouth/Throat: Mucous Membranes Moist Respiratory: - - pt refuses Cardiovascular: - - pt refuses Abdominal: - - pt refuses Extremities: No Edema Neurological: - - alert Result Diagrams: 11/20/16 05:41 11/20/16 05:41 Additional Lab and Data: Lab Results 11/18/16 11/18/16 11/18/16 Range/Units 17:15 17:15 17:15 WBC 12.1 H (3.5-10.8) 10^3/ul RBC 4.55 (4.0-5.4) 10^6/ul Hgb 12.6 L (14.0-18.0) g/dl Hct 39 L (42-52) % MCV 86 (80-94) fL MCH 28 (27-31) pg MCHC 32 (31-36) g/dl RDW 16 H (10.5-15) % Plt Count 254 (150-450) 10^3/ul MPV 8 (7.4-10.4) um3 Neut % (Auto) 96.3 H (38-83) % Lymph % (Auto) 1.3 L (25-47) % [place] % (Auto) 1.9 (1-9) % Eos % (Auto) 0 (0-6) % Baso % (Auto) 0.5 (0-2) % Absolute Neuts (auto) 11.7 H (1.5-7.7) 10^3/ul Absolute Lymphs (auto) 0.2 L (1.0-4.8) 10^3/ul Absolute Monos (auto) 0.2 (0-0.8) 10^3/ul Absolute Eos (auto) 0 (0-0.6) 10^3/ul Absolute Basos (auto) 0.1 (0-0.2) 10^3/ul Absolute Nucleated RBC 0 10^3/ul Nucleated RBC % 0 INR (Anticoag Therapy) 0.92 (0.89-1.11) APTT 27.4 (26.0-36.3) seconds Sodium 133 (133-145) mmol/L Potassium 4.8 (3.5-5.0) mmol/L Chloride 98 L (101-111) mmol/L Carbon Dioxide 23 (22-32) mmol/L Anion Gap 12 H (2-11) mmol/L BUN 27 H (6-24) mg/dL Creatinine 0.97 (0.67-1.17) mg/dL Est GFR ( Amer) 97.8 (>60) Est GFR (Non-Af Amer) 76.1 (>60) BUN/Creatinine Ratio 27.8 H (8-20) Glucose 87 (70-100) mg/dL Lactic Acid (0.5-2.0) mmol/L Calcium 9.4 (8.6-10.3) mg/dL Total Bilirubin 0.60 (0.2-1.0) mg/dL AST 17 (13-39) U/L ALT 8 (7-52) U/L Alkaline Phosphatase 106 H (34-104) U/L Troponin I 0.06 H* (<0.04) ng/mL C-Reactive Protein 57.66 H (< 5.00) mg/L Total Protein 6.7 (6.4-8.9) g/dL Albumin 3.1 L (3.2-5.2) g/dL Globulin 3.6 (2-4) g/dL Albumin/Globulin Ratio 0.9 L (1-3) 11/18/16 Range/Units 17:15 WBC (3.5-10.8) 10^3/ul RBC (4.0-5.4) 10^6/ul Hgb (14.0-18.0) g/dl Hct (42-52) % MCV (80-94) fL MCH (27-31) pg MCHC (31-36) g/dl RDW (10.5-15) % Plt Count (150-450) 10^3/ul MPV (7.4-10.4) um3 Neut % (Auto) (38-83) % Lymph % (Auto) (25-47) % [place] % (Auto) (1-9) % Eos % (Auto) (0-6) % Baso % (Auto) (0-2) % Absolute Neuts (auto) (1.5-7.7) 10^3/ul Absolute Lymphs (auto) (1.0-4.8) 10^3/ul Absolute Monos (auto) (0-0.8) 10^3/ul Absolute Eos (auto) (0-0.6) 10^3/ul Absolute Basos (auto) (0-0.2) 10^3/ul Absolute Nucleated RBC 10^3/ul Nucleated RBC % INR (Anticoag Therapy) (0.89-1.11) APTT (26.0-36.3) seconds Sodium (133-145) mmol/L Potassium (3.5-5.0) mmol/L Chloride (101-111) mmol/L Carbon Dioxide (22-32) mmol/L Anion Gap (2-11) mmol/L BUN (6-24) mg/dL Creatinine (0.67-1.17) mg/dL Est GFR ( Amer) (>60) Est GFR (Non-Af Amer) (>60) BUN/Creatinine Ratio (8-20) Glucose (70-100) mg/dL Lactic Acid 3.2 H* (0.5-2.0) mmol/L Calcium (8.6-10.3) mg/dL Total Bilirubin (0.2-1.0) mg/dL AST (13-39) U/L ALT (7-52) U/L Alkaline Phosphatase (34-104) U/L Troponin I (<0.04) ng/mL C-Reactive Protein (< 5.00) mg/L Total Protein (6.4-8.9) g/dL Albumin (3.2-5.2) g/dL Globulin (2-4) g/dL Albumin/Globulin Ratio (1-3) Microbiology and Other Data: Microbiology 11/18/16 23:18 Nasal Screen MRSA (PCR)([facility]) - Final Nasal Mrsa Positive 11/18/16 23:18 Influenza Types A,B Antigen (ARINA) - Final Nasal Specimen received for Influenza A/B Molecular testing Assess/Plan/Problems-Billing Mr. Griggs is a 71 yo M who has a h/o schizophrenia who was brought in from [facility] with c/o fever and was admitted for evaluation of infection. - Patient Problems (1) Gram negative sepsis Current Visit: Yes Status: Acute Comment: Blood cultures and urine have grown proteus mirabilis. Sensitive to ceftriaxone. Will change from cefepime to ceftriaxone for now. Pt intermittently refuses medications and I am not confident he will take the ABx that he will need orally to complete a full course of therapy (needs 14 days total). (2) UTI (urinary tract infection) Current Visit: Yes Status: Acute Comment: As above, urine grew proteus. Continue ceftriaxone. (3) Urinary retention Current Visit: Yes Status: Acute Code(s): R33.9 - RETENTION OF URINE, UNSPECIFIED SNOMED Code(s): 634610020 Comment: Hemphill was obstructed on presentation to ER. Hemphill is now draining appropriately. (4) Paranoid schizophrenia Current Visit: Yes Status: Acute Code(s): F20.0 - PARANOID SCHIZOPHRENIA SNOMED Code(s): 62217279 Comment: Continue current haldol dosing. (5) DVT prophylaxis Current Visit: Yes Status: Acute Code(s): EXT8415 - SNOMED Code(s): 576041830 Comment: It appears pt was on xarelto for dvt prophylaxis at the [place]. He has not been dx with a DVT or any other condition requiring anticoagulation. Stop xarelto-no need to be on it any further. Continue SQ heparin if pt will allow. (6) Full code status Current Visit: Yes Status: Acute Code(s): Z78.9 - OTHER SPECIFIED HEALTH STATUS SNOMED Code(s): 934470165
[2016-11-22 05:22] LABS: Hematocrit 31 % (42-52); Hemoglobin 10.1 g/dl (14.0-18.0); Mean Corpuscular HGB Conc 33 g/dl (31-36); Mean Corpuscular Hemoglobin 28 pg (27-31); Mean Corpuscular Volume 87 fL (80-94); Mean Platelet Volume 8 um3 (7.4-10.4); Red Blood Count 3.57 10^6/ul (4.0-5.4); Red Cell Distribution Width 17 % (10.5-15); White Blood Count 14.9 10^3/ul (3.5-10.8)
[2016-11-22 05:36] LABS: Add Diff/Slide Review? Slide Review Added; Comments Flag Yes
[2016-11-22 05:37] LABS: BUN/Creatinine Ratio 37.7 (8-20); Calcium 8.9 mg/dL (8.6-10.3); EGFR African American 196.5 (>60); EGFR Non-African American 152.8 (>60); Potassium 3.4 mmol/L (3.5-5.0)
[2016-11-22] MEDS: Heparin VIAL(*) 5000 UNITS/ML VIAL (FIVE THOUSAND) SUBCUT SCH ×2 (07:33→15:07)
[2016-11-22] MEDS: cefTRIAXone VIAL(*) 1,000 MG in NS 0.9% 50 ML* 50 ML IVPB SCH (12:45)
[2016-11-22] MEDS ORDERED: Morphine INJ* 2 MG/ML 1 ML SYRINGE IV PRN (15:56)
--- NOTE | 2016-11-22 15:57 | PN ---
Subjective Date of Service: 11/22/16 Interval History: No c/o. Patient very paranoid. Objective Active Medications: Acetaminophen (Tylenol Tab*) 650 mg PO Q6H PRN PRN Reason: Pain/fever Last Admin: 11/18/16 21:44 Dose: 650 mg Enoxaparin Sodium (Lovenox(*)) 40 mg SUBCUT Q24H RAFAEL Haloperidol (Haldol Tab*) 0.5 mg PO Q6H PRN PRN Reason: AGITATION Last Admin: 11/22/16 10:19 Dose: 0.5 mg Haloperidol Lactate (Haldol Inj Iv/Im*) 0.5 mg IV SLOW PU Q6H PRN PRN Reason: AGITATION Last Admin: 11/20/16 21:32 Dose: 0.5 mg Ceftriaxone Sodium 1,000 mg/ (Sodium Chloride) 50 mls @ 200 mls/hr IVPB Q24H RAFAEL Last Admin: 11/22/16 12:45 Dose: 200 mls/hr Morphine Sulfate (Morphine Inj (Syringe)*) 4 mg IV Q4H PRN PRN Reason: PAIN Last Admin: 11/18/16 21:41 Dose: 4 mg Polyethylene Glycol/Electrolytes (Miralax*) 17 gm PO DAILY PRN PRN Reason: CONSTIPATION Vital Signs 11/21/16 11/21/16 11/21/16 16:04 19:28 20:00 Temperature 98.7 F 98.6 F Pulse Rate 79 82 Respiratory 24 20 20 Rate Blood Pressure 147/83 150/77 (mmHg) O2 Sat by Pulse 98 98 98 Oximetry 11/22/16 11/22/16 11/22/16 07:59 10:33 10:34 Temperature 97.7 F Pulse Rate 57 Respiratory 24 24 Rate Blood Pressure 148/70 (mmHg) O2 Sat by Pulse 100 98 Oximetry 11/22/16 12:56 Temperature 98.2 F Pulse Rate 66 Respiratory 22 Rate Blood Pressure 145/69 (mmHg) O2 Sat by Pulse 98 Oximetry Oxygen Devices in Use Now: None Appearance: Alert, supine in bed. Neutral affect, gets agitated/hostile when asked any question. Eyes: No Scleral Icterus Neck: NL Appearance and Movements; NL JVP, No Thyroid Enlargement, Masses Respiratory: Symmetrical Chest Expansion and Respiratory Effort, Clear to Auscultation, Clear to Percussion Cardiovascular: NL Sounds; No Murmurs; No JVD, RRR, No Edema, - Extremities: No Edema, No Clubbing, Cyanosis, - Skin: No Rash or Ulcers, No Nodules or Sclerosis, - Neurological: NL Sensation - Moves all limbs. Delayed response. No tremor. Result Diagrams: 11/22/16 04:55 11/22/16 04:58 Additional Lab and Data: Lab Results 11/18/16 11/18/16 11/18/16 Range/Units 17:15 17:15 17:15 WBC 12.1 H (3.5-10.8) 10^3/ul RBC 4.55 (4.0-5.4) 10^6/ul Hgb 12.6 L (14.0-18.0) g/dl Hct 39 L (42-52) % MCV 86 (80-94) fL MCH 28 (27-31) pg MCHC 32 (31-36) g/dl RDW 16 H (10.5-15) % Plt Count 254 (150-450) 10^3/ul MPV 8 (7.4-10.4) um3 Neut % (Auto) 96.3 H (38-83) % Lymph % (Auto) 1.3 L (25-47) % [place] % (Auto) 1.9 (1-9) % Eos % (Auto) 0 (0-6) % Baso % (Auto) 0.5 (0-2) % Absolute Neuts (auto) 11.7 H (1.5-7.7) 10^3/ul Absolute Lymphs (auto) 0.2 L (1.0-4.8) 10^3/ul Absolute Monos (auto) 0.2 (0-0.8) 10^3/ul Absolute Eos (auto) 0 (0-0.6) 10^3/ul Absolute Basos (auto) 0.1 (0-0.2) 10^3/ul Absolute Nucleated RBC 0 10^3/ul Nucleated RBC % 0 INR (Anticoag Therapy) 0.92 (0.89-1.11) APTT 27.4 (26.0-36.3) seconds Sodium 133 (133-145) mmol/L Potassium 4.8 (3.5-5.0) mmol/L Chloride 98 L (101-111) mmol/L Carbon Dioxide 23 (22-32) mmol/L Anion Gap 12 H (2-11) mmol/L BUN 27 H (6-24) mg/dL Creatinine 0.97 (0.67-1.17) mg/dL Est GFR ( Amer) 97.8 (>60) Est GFR (Non-Af Amer) 76.1 (>60) BUN/Creatinine Ratio 27.8 H (8-20) Glucose 87 (70-100) mg/dL Lactic Acid (0.5-2.0) mmol/L Calcium 9.4 (8.6-10.3) mg/dL Total Bilirubin 0.60 (0.2-1.0) mg/dL AST 17 (13-39) U/L ALT 8 (7-52) U/L Alkaline Phosphatase 106 H (34-104) U/L Troponin I 0.06 H* (<0.04) ng/mL C-Reactive Protein 57.66 H (< 5.00) mg/L Total Protein 6.7 (6.4-8.9) g/dL Albumin 3.1 L (3.2-5.2) g/dL Globulin 3.6 (2-4) g/dL Albumin/Globulin Ratio 0.9 L (1-3) 11/18/16 Range/Units 17:15 WBC (3.5-10.8) 10^3/ul RBC (4.0-5.4) 10^6/ul Hgb (14.0-18.0) g/dl Hct (42-52) % MCV (80-94) fL MCH (27-31) pg MCHC (31-36) g/dl RDW (10.5-15) % Plt Count (150-450) 10^3/ul MPV (7.4-10.4) um3 Neut % (Auto) (38-83) % Lymph % (Auto) (25-47) % [place] % (Auto) (1-9) % Eos % (Auto) (0-6) % Baso % (Auto) (0-2) % Absolute Neuts (auto) (1.5-7.7) 10^3/ul Absolute Lymphs (auto) (1.0-4.8) 10^3/ul Absolute Monos (auto) (0-0.8) 10^3/ul Absolute Eos (auto) (0-0.6) 10^3/ul Absolute Basos (auto) (0-0.2) 10^3/ul Absolute Nucleated RBC 10^3/ul Nucleated RBC % INR (Anticoag Therapy) (0.89-1.11) APTT (26.0-36.3) seconds Sodium (133-145) mmol/L Potassium (3.5-5.0) mmol/L Chloride (101-111) mmol/L Carbon Dioxide (22-32) mmol/L Anion Gap (2-11) mmol/L BUN (6-24) mg/dL Creatinine (0.67-1.17) mg/dL Est GFR ( Amer) (>60) Est GFR (Non-Af Amer) (>60) BUN/Creatinine Ratio (8-20) Glucose (70-100) mg/dL Lactic Acid 3.2 H* (0.5-2.0) mmol/L Calcium (8.6-10.3) mg/dL Total Bilirubin (0.2-1.0) mg/dL AST (13-39) U/L ALT (7-52) U/L Alkaline Phosphatase (34-104) U/L Troponin I (<0.04) ng/mL C-Reactive Protein (< 5.00) mg/L Total Protein (6.4-8.9) g/dL Albumin (3.2-5.2) g/dL Globulin (2-4) g/dL Albumin/Globulin Ratio (1-3) Microbiology and Other Data: Microbiology 11/18/16 23:18 Nasal Screen MRSA (PCR)(ARINA) - Final Nasal Mrsa Positive 11/18/16 23:18 Influenza Types A,B Antigen (ARINA) - Final Nasal Specimen received for Influenza A/B Molecular testing Assess/Plan/Problems-Billing Mr. Griggs is a 71 yo M who has a h/o schizophrenia who was brought in from [facility] with c/o fever and was admitted for evaluation of infection. - Patient Problems (1) UTI (urinary tract infection) Current Visit: Yes Status: Acute Comment: Sepsis present on admission due to UTI. Urine grew proteus. Continue ceftriaxone. Add cefuroxime to test his compliance with oral antibiotics. (2) Paranoid schizophrenia Current Visit: Yes Status: Acute Code(s): F20.0 - PARANOID SCHIZOPHRENIA SNOMED Code(s): 56125975 Comment: Haloperidol 0.5 mg po bid scheduled start 11/22/16 PM. Psychiatry consult requested. (3) Urinary retention Current Visit: Yes Status: Acute Code(s): R33.9 - RETENTION OF URINE, UNSPECIFIED SNOMED Code(s): 404220147 Comment: Hemphill was obstructed on presentation to ER. Hemphill now functioning normally. (4) DVT prophylaxis Current Visit: Yes Status: Acute Code(s): XRW0608 - SNOMED Code(s): 528892044 Comment: It appears pt was on xarelto for dvt prophylaxis at the [place]. He has not been dx with a DVT or any other condition requiring anticoagulation. Stop xarelto-no need to be on it any further. Change to once daily enoxaparin to reduce number of doses per day.
[2016-11-22] MEDS: Enoxaparin(*) 40 MG/0.4 ML SYR SUBCUT SCH (16:24)
[2016-11-22] MEDS: ceFUROXime TAB(*) 250 MG PO SCH ×2 (16:38→21:30)
[2016-11-22] MEDS: Haloperidol TAB* 0.5 MG PO SCH (21:30)
[2016-11-23] MEDS: ceFUROXime TAB(*) 250 MG PO SCH ×4 (08:09→16:44)
[2016-11-23] MEDS: Haloperidol TAB* 0.5 MG PO SCH (08:10)
--- NOTE | 2016-11-23 12:03 | CONSULT ---
Identification - Patient Identification Reason for Psychiatric Consultation: Other -: Patient is a 71 year old, M admitted on 11/18/16. Patient presenting from his SNF, [facility], [place] for evaluation of fever. Patient has a past dx of paranoid schizophrenia. Since admission patient expressing paranoid delusions, has been disorganized in thought process and combative with staff. Consult entered for evaluation / management of Schizophrenia. - MHU Identification Employment Status: Disabled Hx Psychiatric Hospitalization: Yes Arrived to Hospital Via: Ambulatory History - Objective HPI: Psychiatric Hx HPI: ---- 71yo male resident of [facility] [place] [facility] [place]. Patient found to have uro-sepsis, urine cx and blood cx (+) for proteus. Patient also with noted to have obstructive kidney injury, resolved now with chronic smith. Patient on IV abx. Patient noted to express paranoid ideations, be episodically combative/ aggressive. On interview, patient was calm, cooperative and engaged. Patient reported his mood as "about average". He initially answered questions via short responses. Patient soon became talkative and expressed paranoia about his nurse listening to the interview and asked her to leave. He stated,"why is she so interested". Patient then reported believing all hospital rooms are bugged. Patient reported feeling staff is trying to keep him sick. He does though report good appetite and sleep. He denies SI/HI and AH/VH currently. Patient does report episodically communicating telepathically with a woman "from his pass". Patient reports being on no current psychotropic meds. Patient can not recall the name of his last outpt [facility] [place] or of his provider. Patient reports declining all med mx of his Schizophrenia symptoms since admission to [facility] [place] in 09/2016. Per discussion with nurse, patient has not demonstrated waxing/waning attention. She reports he became aggressive and attempted to hit her during med administration. She reports he stated he hates pills. She reports he has been polite for other care. She reports patient ate 100% of breakfast. 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 She reports no hx of aggression/combativeness. She reports he has a baseline irritable mood. PPHx: ------ Patient reports multiple inpatient hospitalizations -[facility] [place] -[facility] in [place] Patient reports no current outpt psychiatrist and is not currently seen by the [facility] [place] psychiatrist Patient can not recall any psychotropic med names Patient on PRN Haldol 0.5mg po 6hr at [facility] [place] Suicide Hx / SIB Hx Patient denies hx of SIB and suicide attempt Substance Hx: Patient reports no abuse of alcohol in over a decade Patient denies use of illicit substances PMHX: DVT on Xarelto currently Home Meds: Xarelto PRN Haldol PRN Miralax PRN Tylenol Allergy: -------- NKDA Labs: ------ Cxr - wnl EKG - NSR Blood Cx - (+) proteus mirabilis Urine Cx - (+) proteus mirabilis Past Medical History: PMHX: DVT on Xarelto currently. Bilateral LE stage 2 pressure ulcers. Sacral stage 3 pressure ulcer. Coccyx stage 2 pressure ulcer Lab Results: Laboratory Tests 11/18/16 11/18/16 11/18/16 21:29 21:29 21:29 WBC RBC Hgb Hct MCV MCH MCHC RDW Plt Count MPV Immature Gran % (Auto) Neut % (Auto) Lymph % (Auto) [place] % (Auto) Eos % (Auto) Baso % (Auto) Absolute Neuts (auto) Absolute Lymphs (auto) Absolute Monos (auto) Absolute Eos (auto) Absolute Basos (auto) Absolute Nucleated RBC Neutrophils % Band Neutrophils % Lymphocytes % Monocytes % Eosinophils % Metamyelocytes % Myelocytes % Nucleated RBC % Toxic Granulation Normal RBC Morphology ESR 28 Sodium Potassium Chloride Carbon Dioxide Anion Gap BUN Creatinine Est GFR ( Amer) Est GFR (Non-Af Amer) BUN/Creatinine Ratio Glucose Lactic Acid 4.3 H* Calcium Troponin I 0.05 H* Urine Color Urine Appearance Urine pH Ur Specific [place]cloud Urine Protein Urine Ketones Urine Blood Urine Nitrate Urine Bilirubin Urine Urobilinogen Ur Leukocyte Esterase Urine WBC (Auto) Urine RBC (Auto) Urine Bacteria Urine Glucose Influenza A (Rapid) Influenza B (Rapid) 11/18/16 11/18/16 11/19/16 22:23 23:25 01:11 WBC RBC Hgb Hct MCV MCH MCHC RDW Plt Count MPV Immature Gran % (Auto) Neut % (Auto) Lymph % (Auto) [place] % (Auto) Eos % (Auto) Baso % (Auto) Absolute Neuts (auto) Absolute Lymphs (auto) Absolute Monos (auto) Absolute Eos (auto) Absolute Basos (auto) Absolute Nucleated RBC Neutrophils % Band Neutrophils % Lymphocytes % Monocytes % Eosinophils % Metamyelocytes % Myelocytes % Nucleated RBC % Toxic Granulation Normal RBC Morphology ESR Sodium Potassium Chloride Carbon Dioxide Anion Gap BUN Creatinine Est GFR ( Amer) Est GFR (Non-Af Amer) BUN/Creatinine Ratio Glucose Lactic Acid Calcium Troponin I 0.06 H* Urine Color Red A Urine Appearance Cloudy Urine pH 8.0 Ur Specific Mccloud 1.010 Urine Protein 2+(100 mg/dl) H Urine Ketones Negative Urine Blood 3+ H Urine Nitrate Negative Urine Bilirubin Negative Urine Urobilinogen Negative Ur Leukocyte Esterase 3+ H Urine WBC (Auto) 3+(>20/hpf) H Urine RBC (Auto) 3+(>10/hpf) H Urine Bacteria 1+ H Urine Glucose Negative Influenza A (Rapid) Negative Influenza B (Rapid) Negative 11/19/16 11/19/16 11/19/16 07:55 07:55 07:55 WBC 45.4 H RBC 3.39 L Hgb 9.4 L Hct 30 L MCV 88 MCH 28 MCHC 32 RDW 17 H Plt Count 182 MPV 8 Immature Gran % (Auto) 23 H Neut % (Auto) 92.0 H Lymph % (Auto) 1.2 L [place] % (Auto) 6.6 Eos % (Auto) 0 Baso % (Auto) 0.2 Absolute Neuts (auto) 41.8 H Absolute Lymphs (auto) 0.5 L Absolute Monos (auto) 3.0 H Absolute Eos (auto) 0 Absolute Basos (auto) 0.1 Absolute Nucleated RBC 0 Neutrophils % 69 Band Neutrophils % 16 H Lymphocytes % 2 L Monocytes % 6 Eosinophils % Metamyelocytes % 4 H Myelocytes % 3 H Nucleated RBC % 0 Toxic Granulation 1+ Normal RBC Morphology Normal ESR Sodium 138 Potassium 3.8 Chloride 106 Carbon Dioxide 24 Anion Gap 8 BUN 25 H Creatinine 0.79 Est GFR ( Amer) 124.0 Est GFR (Non-Af Amer) 96.4 BUN/Creatinine Ratio 31.6 H Glucose 87 Lactic Acid 1.8 Calcium 8.3 L Troponin I Urine Color Urine Appearance Urine pH Ur Specific Mccloud Urine Protein Urine Ketones Urine Blood Urine Nitrate Urine Bilirubin Urine Urobilinogen Ur Leukocyte Esterase Urine WBC (Auto) Urine RBC (Auto) Urine Bacteria Urine Glucose Influenza A (Rapid) Influenza B (Rapid) 11/20/16 11/20/16 11/22/16 05:41 05:41 04:55 WBC 35.6 H 14.9 H RBC 3.26 L 3.57 L Hgb 9.2 L 10.1 L Hct 29 L 31 L MCV 88 87 MCH 28 28 MCHC 32 33 RDW 17 H 17 H Plt Count 151 133 L MPV 8 8 Immature Gran % (Auto) 47 H Neut % (Auto) 91.2 H 88.2 H Lymph % (Auto) 2.0 L 6.4 L [place] % (Auto) 5.9 4.1 Eos % (Auto) 0.1 0.6 Baso % (Auto) 0.8 0.7 Absolute Neuts (auto) 32.5 H 13.1 H Absolute Lymphs (auto) 0.7 L 1.0 Absolute Monos (auto) 2.1 H 0.6 Absolute Eos (auto) 0 0.1 Absolute Basos (auto) 0.3 H 0.1 Absolute Nucleated RBC 0.01 0.03 Neutrophils % 49 Band Neutrophils % 47 H Lymphocytes % 1 L Monocytes % 2 Eosinophils % 1 Metamyelocytes % Myelocytes % Nucleated RBC % 0 0.2 Toxic Granulation Normal RBC Morphology Normal ESR Sodium 140 Potassium 3.0 L Chloride 111 Carbon Dioxide 23 Anion Gap 6 BUN 20 Creatinine 0.50 L Est GFR ( Amer) 210.2 Est GFR (Non-Af Amer) 163.5 BUN/Creatinine Ratio 40.0 H Glucose 81 Lactic Acid Calcium 8.8 Troponin I Urine Color Urine Appearance Urine pH Ur Specific Mccloud Urine Protein Urine Ketones Urine Blood Urine Nitrate Urine Bilirubin Urine Urobilinogen Ur Leukocyte Esterase Urine WBC (Auto) Urine RBC (Auto) Urine Bacteria Urine Glucose Influenza A (Rapid) Influenza B (Rapid) 11/22/16 04:58 WBC RBC Hgb Hct MCV MCH MCHC RDW Plt Count MPV Immature Gran % (Auto) Neut % (Auto) Lymph % (Auto) [place] % (Auto) Eos % (Auto) Baso % (Auto) Absolute Neuts (auto) Absolute Lymphs (auto) Absolute Monos (auto) Absolute Eos (auto) Absolute Basos (auto) Absolute Nucleated RBC Neutrophils % Band Neutrophils % Lymphocytes % Monocytes % Eosinophils % Metamyelocytes % Myelocytes % Nucleated RBC % Toxic Granulation Normal RBC Morphology ESR Sodium 139 Potassium 3.4 L Chloride 108 Carbon Dioxide 25 Anion Gap 6 BUN 20 Creatinine 0.53 L Est GFR ( Amer) 196.5 Est GFR (Non-Af Amer) 152.8 BUN/Creatinine Ratio 37.7 H Glucose 114 H Lactic Acid Calcium 8.9 Troponin I Urine Color Urine Appearance Urine pH Ur Specific [place] Urine Protein Urine Ketones Urine Blood Urine Nitrate Urine Bilirubin Urine Urobilinogen Ur Leukocyte Esterase Urine WBC (Auto) Urine RBC (Auto) Urine Bacteria Urine Glucose Influenza A (Rapid) Influenza B (Rapid) Exam Appearance: Thin Framed Hygiene: Normal Grooming: Fairly Well Kept Psychomotor Activities: Abnormal-Decreased Exhibits Abnormal Movement: No Attitude and Relatedness: Irritable Eye Contact: Fair - Speech Quality: Unpressured Latencies: Long Quantity: Appropriate Patient's Decription of Mood: about average Observed Affect: Depressed Affect Consistent with: Dysphoria Patient's Thought Process: Tangential Thought Content: Yes Paranoid Ideation - "bugged" hospital room, staff keeping patient sick, No Passive Wish, No Suicidal Planning, No Homicidal Ideation Experiencing Hallucinations: No, Sensorium is Clear Type of Hallucinations: Visual: No, Auditory: No, Command: No Level of Consciousness: Alert Orientation: Yes Intact, Yes Orientated to Time, Yes Orientated to Place, Yes Orientated to Person Impulse Control: Impaired Insight and Judgement: Fair - Additional Observations Comments: Patient alert and oriented x3, no signs of delirium noted, patient reports hx of AHs which he interprets as telepathic communication with a female friend. Impression - Impression Clinical Impression: 71yo male resident of [facility] admitted [place] [facility] [place] [place] for urose[place]. Patient expressing baseline paranoid ideations and rastafarian preoccupations. Patient with irritable baseline mood with an episode of combativeness, but has mostly been pleasant. Patient with "about average" mood today, no hx of suicide attempt. Patient is bed bound. Inpatient DSM-IV Dx: 1. Paranoid Schizophrenia. 2. Depressive d/0 unspecified Merits Inpatient Hospitalization: No Problem List - MHU Problems Type of Problem: Medication Management Status of Problem: Active Problem: non compliance Plan - Treatment Plan Treatment Plan: Recommendation: -Patient does not request and does not meet criteria for inpatient hospitalization. -Patient could benefit from neuroleptic med management. He currently declines initiation of med. -Recommend consult for [facility] in community -Quetiapine 25mg po BID for mx agitation/combativeness may be started. Quetiapine is the safest neuroleptic with patient (+) for hx of DVT. All neuroleptics are associated with increased risk of in this population. -Patient not being followed currently by [facility] [place] psychiatrist. Would recommend appt with [facility] psychiatrist once discharged to manage non-compliance hx. Medications: Current Medications Acetaminophen (Tylenol Tab*) 650 mg PO Q6H PRN PRN Reason: Pain/fever Last Admin: 11/18/16 21:44 Dose: 650 mg Cefuroxime Axetil (Ceftin Tab(*)) 250 mg PO QID [facility] Last Admin: 11/23/16 08:09 Dose: 250 mg Enoxaparin Sodium (Lovenox(*)) 40 mg SUBCUT Q24H [facility] Last Admin: 11/22/16 16:24 Dose: 40 mg Haloperidol (Haldol Tab*) 0.5 mg PO BID [facility] Last Admin: 11/23/16 08:10 Dose: 0.5 mg Haloperidol Lactate (Haldol Inj Iv/Im*) 0.5 mg IV SLOW PU Q6H PRN PRN Reason: AGITATION Last Admin: 11/20/16 21:32 Dose: 0.5 mg Ceftriaxone Sodium 1,000 mg/ (Sodium Chloride) 50 mls @ 200 mls/hr IVPB Q24H [facility] Last Admin: 11/22/16 12:45 Dose: 200 mls/hr Morphine Sulfate (Morphine Inj (Syringe)*) 2 mg IV Q4H PRN PRN Reason: PAIN Polyethylene Glycol/Electrolytes (Miralax*) 17 gm PO DAILY PRN PRN Reason: CONSTIPATION
[2016-11-23] MEDS: cefTRIAXone VIAL(*) 1,000 MG in NS 0.9% 50 ML* 50 ML IVPB SCH (12:07)
--- NOTE | 2016-11-23 14:41 | PN ---
Progress Note - Progress Note Note: Time spent on discharge 55 minutes.
--- NOTE | 2016-11-23 15:30 | DS ---
DATE OF ADMISSION: 11/18/2016. DATE OF DISCHARGE: 11/23/2016. HISTORY: This 71-year-old man presented with a fever. He is a resident at [facility]. In the emergency room, his temperature was 101.6, he was tachycardic, his white count was 12.1, his lactic acid was 3.2, troponin 0.06. I am not sure how long the patient has had a Hemphill. He is listed as having a chronic Hemphill. He may have pulled out the Hemphill. He was straight cathed a number of times with large amounts of pain. I asked the nurse to reinsert a Hemphill catheter with a Coude catheter, which was done without difficulty. His urine culture grew out proteus mirabilis. Three sets of blood cultures grew out proteus mirabilis in all four bottles. The proteus was resistant to Ampicillin and Cefazolin, but sensitive to Ceftriaxone and quinolones, it was resistant to Nitrofurantoin and Tetracycline, but sensitive to Trimethoprim Sulfamethoxazole. He was treated initially with Ceftriaxone. He did well in the hospital. Initially, his white count maria esther to 45,000, but then gradually came down to 14.9 on November 22. His temperature highest value was the initial one on the floor, it was 100.3 on November 20. On the last [id number]-half days in the hospital it was below 100 degrees. Clinically he was well. He exhibited symptoms of paranoid schizophrenia, really without much let up. He was seen in consultation by the psychiatrist who recommended Quetiapine 25 mg b.i.d. This was started with one dose in the hospital on the day of discharge. I gave him Cefuroxime. He tolerated four doses without any problem. There had been some concern that he had been refusing medications, but he did not refuse the Cefuroxime, so I feel it is safe to discharge him to the [facility] where he will complete a 14 day course of antibiotics by taking nine days of Cefuroxime. FINAL DIAGNOSES: 1. Urinary tract infection with bacterium. 2. Urinary retention. 3. Paranoid schizophrenia. DISCHARGE MEDICATIONS: 1. Acetaminophen 650 mg every 6 hours prn. 2. Polyethylene Glycol 17 gm daily. 3. Quetiapine 25 mg b.i.d. 4. Cefuroxime 500 mg q.i.d. for 9 more days. [id number]/[facility] #: [id number] BENITA
[2016-11-23 15:45] VITALS: BP 150/87
[2016-11-23] MEDS: Enoxaparin(*) 40 MG/0.4 ML SYR SUBCUT SCH (16:08)
[2016-11-23] MEDS: QUEtiapine TAB* 25 MG PO ONE ×2 (16:09→16:44)
[2016-11-23] MEDS ORDERED: QUEtiapine TAB* 25 MG PO SCH (21:00)
[2016-11-23] MEDS ORDERED: ceFUROXime TAB(*) 250 MG PO SCH (21:00)
== END 2016-11-23 17:45 | DRG 698 ==
LOC: ED 16:28 → MEDTELE 19:12 → MED 11-22 20:00
PROVIDERS: ADMIT Nurse Practitioner Acute Care; ATTEND Internal Medicine
DX: T83.518A Infection and inflammatory reaction due to other urinary catheter, initial encounter (principal); A41.59 Other Gram-negative sepsis; L89.309 Pressure ulcer of unspecified buttock, unspecified stage; L89.119 Pressure ulcer of right upper back, unspecified stage; N39.0 Urinary tract infection, site not specified; F20.0 Paranoid schizophrenia; B96.4 Proteus (mirabilis) (morganii) as the cause of diseases classified elsewhere; R31.9 Hematuria, unspecified; R33.9 Retention of urine, unspecified; X58.XXXA Exposure to other specified factors, initial encounter; Y92.129 Unspecified place in nursing home as the place of occurrence of the external cause; Z79.1 Long term (current) use of non-steroidal anti-inflammatories (NSAID); Z79.01 Long term (current) use of anticoagulants; Z79.899 Other long term (current) drug therapy; Z16.11 Resistance to penicillins; Z16.39 Resistance to other specified antimicrobial drug
CPT/HCPCS: 36415; 71010; 74176; 80048; 80053; 81003; 81015; 83605; 84484; 85025; 85610; 85652; 85730; 86140; 87040; 87077; 87086; 87184; 87186; 87205; 87502; 87641; 93005; A9270-GY; J0692; J0696; J1630; J1644; J1650; J2270; J2543; J3480

== ENCOUNTER 2016-12-27 14:05 | Inpatient (IN) | payer MEDICARE, MEDICAID ==
[2016-12-27] MEDS ORDERED: cefTRIAXone(*) 1 GM in NS 0.9% 50 ML* 50 ML IVPB ONE ×2 (15:07→15:30)
[2016-12-27] MEDS ORDERED: NS 0.9% 1000 ML* 2,000 ML IV ONE (15:07)
[2016-12-27 15:17] LABS: Hematocrit 38 % (42-52); Hemoglobin 12.5 g/dl (14.0-18.0); Mean Corpuscular HGB Conc 33 g/dl (31-36); Mean Corpuscular Hemoglobin 28 pg (27-31); Mean Corpuscular Volume 85 fL (80-94); Mean Platelet Volume 8 um3 (7.4-10.4); Red Cell Distribution Width 17 % (10.5-15)
[2016-12-27 15:20] LABS: Urine Bilirubin Negative (Negative); Urine Glucose Negative (Negative); Urine Nitrite Negative (Negative)
[2016-12-27 15:22] LABS: Add Diff/Slide Review? Slide Review Added; Comments Flag Yes
[2016-12-27 15:29] LABS: Albumin 3.5 g/dL (3.2-5.2); BUN/Creatinine Ratio 27.5 (8-20); Calcium 9.6 mg/dL (8.6-10.3); EGFR African American 50.9 (>60); EGFR Non-African American 39.5 (>60); Globulin 3.9 g/dL (2-4); Potassium 5.5 mmol/L (3.5-5.0); Total Bilirubin 0.4 mg/dL (0.2-1.0); Total Protein 7.4 g/dL (6.4-8.9)
[2016-12-27] MEDS ORDERED: Ciprofloxacin 400MG IVPREMIX(* 400 MG/200 ML BAG IVPB ONE (15:30)
[2016-12-27 15:33] LABS: Troponin I 0.04 ng/mL (<0.04)
--- NOTE | 2016-12-27 15:43 | RAD ---
Indication: Sepsis. Single frontal view of the chest performed at 1513 hours was reviewed. Comparison is made with previous exam dated November 18, 2016. No mediastinal shift is noted. Heart is of normal size and configuration. Lung wisdom appear clear. Hyperinflated lung wisdom are noted. IMPRESSION: NO ACTIVE CARDIOPULMONARY DISEASE IS NOTED.
[2016-12-27] MEDS ORDERED: Magnesium Hydroxide LIQ* 30 ML UDC PO PRN (16:24)
[2016-12-27] MEDS ORDERED: Polyethylene Glycol 3350* 17 GM PACKET PO PRN (16:24)
[2016-12-27] MEDS: NS 0.9% 1000 ML* 2,000 ML IV ONE ×2 (18:05→19:45)
[2016-12-27] MEDS: Acetaminophen TAB* 325 MG PO PRN (19:46)
[2016-12-27] MEDS: QUEtiapine TAB* 25 MG PO SCH (21:33)
[2016-12-27] MEDS: Heparin VIAL(*) 5000 UNITS/ML VIAL (FIVE THOUSAND) SUBCUT SCH (21:33)
[2016-12-27] MEDS: NS 0.9% 1000 ML* 1,000 ML IV SCH (21:34)
--- NOTE | 2016-12-27 22:54 | HP ---
CC: Providers at [facility] MEDICINE HISTORY AND PHYSICAL: DATE OF ADMISSION: 12/27/16 ATTENDING PHYSICIAN: Shiela Leonardo MD * (dictation provided by Elham Abdi NP ). CHIEF COMPLAINT: Abdominal pain and fever. HISTORY OF PRESENT ILLNESS: Mr. Griggs is a 71-year-old male who resides at [facility], who has a significant history of paranoid schizophrenia and is unable to offer much information today. However, per him and the report from [facility], he developed abdominal pain today after his Smith catheter was flushed during routine care. Attempts were made to re-insert a new Smith, but the staff was unable to do so. It was also noted the patient had fever to 103 and therefore EMS was called for him to be brought to the emergency room. There is no other report of acute issue. In the emergency room, Mr. Griggs smith was replaced and 1 L of esquivel red and clotted urine was obtained. The patient is now resting comfortably in the bed with no complaint. His white blood cell count is elevated to 21. He remains febrile with a temperature of 103.1. He also has acute kidney injury with a BUN of 47 and creatinine of 1.71 as well as lactic acidosis of 3.3. His troponin is elevated at 0.04, but this has been chronic minor elevation since back in November. PAST MEDICAL HISTORY: 1. Paranoid schizophrenia. 2. Staph aureus bacteremia September 2016 MSSA. MEDICATIONS: 1. Tylenol 650 mg p.o. q.4 hours. 2. Magnesium hydroxide 30 mL p.o. b.i.d. p.r.n. 3. Polyethylene glycol 17 g p.o. daily. 4. Quetiapine 25 mg p.o. b.i.d. ALLERGIES: No known drug allergies. FAMILY HISTORY: Unobtainable. SOCIAL HISTORY: Unobtainable, the patient was paranoid schizophrenic to live in the community in [place] with first admission to our hospital back in September. No other information was available. REVIEW OF SYSTEMS: Unobtainable, although the patient states he is resting comfortably and denies any complaints, though his history is unreliable. His healthcare proxy would be his brother. PHYSICAL EXAMINATION GENERAL: Mr. Griggs is lying in the bed. He is calm and cooperative on my examination. He is in no acute distress. VITAL SIGNS: Temperature 103.1, heart rate 122, respiratory rate 18, O2 saturation 97% on room air, blood pressure 146/63. LUNGS: Clear to auscultation bilaterally with no accessory muscle use and good aeration. HEART: S1, S2. No murmur, rub or gallop and regular. ABDOMEN: Soft, nontender with bowel sounds positive x4. EXTREMITIES: No cyanosis, no edema. NEUROLOGIC: He is alert. He is oriented to himself. He has contractures in all 4 extremities with limited mobility. There is no facial asymmetry or focal weakness. Extraocular movements are intact. SKIN: Grossly intact, known history of chronic decubitus ulcers. DIAGNOSTIC STUDIES/LABORATORY DATA: Sodium 135, potassium 5.5, chloride 99, serum bicarbonate 26, BUN 47, creatinine 1.71, glucose 137, lactic acid 3.3, troponin 0.04. WBC 21.0, hemoglobin 12.5, hematocrit 38, platelet count 209. INR 0.96. Urine shows 3+ leuk esterase, 3+ blood. Chest x-ray shows no acute process. EKG shows sinus tachycardia with premature atrial complexes. There is no overt evidence of ischemia. ASSESSMENT: Mr. Griggs is a 71-year-old male with a past medical history of paranoid schizophrenia and admission to our hospital in September [facility] sagar, now resident at [facility], who presents today at the hospital with obstructed Smith catheter and fever with sepsis secondary to complicated urinary tract infection. Our plans are for admission to the hospital for the followin. Sepsis, secondary to complicated UTI: The patient did have a Smith placed in the emergency room with good output of esquivel red urine of approximately 1 L quantity. The patient has been given ceftriaxone in the emergency room and based on his prior history of Proteus urinary tract infection, I think ceftriaxone would be an appropriate choice. The patient has received 2 L in the emergency room. I will continue with an additional of 2 L of fluids to complete 4 L of IV fluids and then on to maintenance fluids with further adjustment based on clinical course. Blood and urine cultures will be monitored. 2. Paranoid schizophrenia. Continue Seroquel. 3. DVT Prophylaxis, heparin subcu. 4. Code status is full code. TIME SPENT: Approximately 60 minutes were spent on the admission of this patient, more than half the time was spent with the patient at the bedside reviewing the events leading up to this hospitalization, performing the physical examination, and reviewing the plan of care. ELHAM ABDI NP [id number]/[facility] #: [id number] BENITA
[2016-12-28 04:44] LABS: Hematocrit 29 % (42-52); Hemoglobin 9.5 g/dl (14.0-18.0); Mean Corpuscular HGB Conc 33 g/dl (31-36); Mean Corpuscular Hemoglobin 28 pg (27-31); Mean Corpuscular Volume 86 fL (80-94); Mean Platelet Volume 8 um3 (7.4-10.4); Red Blood Count 3.37 10^6/ul (4.0-5.4); Red Cell Distribution Width 18 % (10.5-15); White Blood Count 15.5 10^3/ul (3.5-10.8)
[2016-12-28 04:55] LABS: Comments Flag Yes
[2016-12-28 04:57] LABS: BUN/Creatinine Ratio 37.4 (8-20); EGFR African American 105.3 (>60); EGFR Non-African American 81.9 (>60); Potassium 3.7 mmol/L (3.5-5.0)
[2016-12-28] MEDS: Heparin VIAL(*) 5000 UNITS/ML VIAL (FIVE THOUSAND) SUBCUT SCH ×4 (05:55→20:52)
[2016-12-28] MEDS: NS 0.9% 1000 ML* 1,000 ML IV SCH (07:34)
[2016-12-28] MEDS: QUEtiapine TAB* 25 MG PO SCH ×4 (08:08→20:52)
[2016-12-28] MEDS: Acetaminophen TAB* 325 MG PO PRN (11:17)
[2016-12-28] MEDS: cefTRIAXone VIAL(*) 1,000 MG in NS 0.9% 50 ML* 50 ML IVPB SCH (15:09)
--- NOTE | 2016-12-28 16:57 | PN ---
Subjective Date of Service: 12/28/16 Interval History: Pt is feeling ok. He denies any pain. He denies SOB. Objective Active Medications: Acetaminophen (Tylenol Tab*) 650 mg PO Q4HR PRN PRN Reason: PAIN Last Admin: 12/28/16 11:17 Dose: 650 mg Heparin Sodium (Porcine) (Heparin Vial(*)) 5,000 units SUBCUT Q8HR [facility] Last Admin: 12/28/16 14:09 Dose: 5,000 units Ceftriaxone Sodium 1,000 mg/ (Sodium Chloride) 50 mls @ 200 mls/hr IVPB Q24H [facility] Last Admin: 12/28/16 15:09 Dose: 200 mls/hr Magnesium Hydroxide (Milk Of Magnesia Liq*) 30 ml PO BID PRN PRN Reason: CONSTIPATION Polyethylene Glycol/Electrolytes (Miralax*) 17 gm PO DAILY PRN PRN Reason: CONSTIPATION Quetiapine Fumarate (Seroquel Tab*) 25 mg PO BID [facility] Last Admin: 12/28/16 11:17 Dose: 25 mg Vital Signs 12/27/16 12/27/16 12/27/16 16:55 17:00 17:08 Temperature 103.8 F 103.8 F 103.8 F Pulse Rate 125 123 125 Respiratory Rate Blood Pressure 120/66 (mmHg) O2 Sat by Pulse 95 96 95 Oximetry 12/27/16 12/27/16 12/27/16 17:31 19:23 19:45 Temperature 99.3 F 102.3 F 100.9 F Pulse Rate 117 115 Respiratory 18 18 Rate Blood Pressure 120/65 127/59 (mmHg) O2 Sat by Pulse 97 97 Oximetry 12/27/16 12/27/16 12/28/16 20:00 23:59 04:01 Temperature 98.9 F 98.4 F Pulse Rate 96 103 Respiratory 20 16 20 Rate Blood Pressure 125/51 125/49 (mmHg) O2 Sat by Pulse 97 94 Oximetry 12/28/16 12/28/16 12/28/16 07:20 07:53 08:15 Temperature 98.9 F Pulse Rate 88 Respiratory 22 18 Rate Blood Pressure 122/54 (mmHg) O2 Sat by Pulse 100 Oximetry 12/28/16 12/28/16 12/28/16 11:09 12:38 13:16 Temperature 100.4 F 100.5 F 99.9 F Pulse Rate 76 Respiratory 18 Rate Blood Pressure 110/41 (mmHg) O2 Sat by Pulse 93 Oximetry 12/28/16 12/28/16 12/28/16 13:18 15:26 15:37 Temperature 99.9 F Pulse Rate 83 Respiratory 20 16 Rate Blood Pressure 118/44 (mmHg) O2 Sat by Pulse 97 Oximetry 12/28/16 16:25 Temperature 98.9 F Pulse Rate Respiratory Rate Blood Pressure (mmHg) O2 Sat by Pulse Oximetry Oxygen Devices in Use Now: None Appearance: Elderly thin male lying in bed sleeping, awakens to voice, NAD Eyes: No Scleral Icterus Ears/Nose/Mouth/Throat: Mucous Membranes Moist Respiratory: Symmetrical Chest Expansion and Respiratory Effort, Clear to Auscultation Cardiovascular: NL Sounds; No Murmurs; No JVD, RRR, No Edema Abdominal: NL Sounds; No Tenderness; No Distention Extremities: No Clubbing, Cyanosis Skin: No Rash or Ulcers, No Nodules or Sclerosis Neurological: - - pt speaks to me but keeps his eyes closed, when I perform the exam, he yells at me. Result Diagrams: 12/28/16 04:30 12/28/16 04:30 Assess/Plan/Problems-Billing Mr Griggs is a 71 yo M who has a h/o schizophrenia, chronic urinary retention, - Patient Problems (1) Gram negative sepsis Current Visit: Yes Status: Acute Comment: The patient presented to the ER after having abdominal pain following an attempt to flush his smith and have a new one replaced. The smith could not be placed therefore he was sent to the ER where 1L of red urine was drained. He was also found to be febrile and the concern was for gram negative sepsis. The patient's urine culture is growin proteus mirabilis. 3 of 4 BC bottles are positive for gram negative bacilli. Will change to meropenem from cipro as his last culture shows the patient's proteus is intermediate sensitive to cipro. (2) Paranoid schizophrenia Current Visit: Yes Status: Acute Code(s): F20.0 - PARANOID SCHIZOPHRENIA SNOMED Code(s): 29971564 Comment: Continue seroquel 25mg BID. (3) DVT prophylaxis Current Visit: Yes Status: Acute Code(s): ZXI2353 - SNOMED Code(s): 211584515 Comment: SQ heparin (4) Full code status Current Visit: Yes Status: Acute Code(s): Z78.9 - OTHER SPECIFIED HEALTH STATUS SNOMED Code(s): 274123426
[2016-12-29 04:23] LABS: Hematocrit 30 % (42-52); Hemoglobin 9.9 g/dl (14.0-18.0); Mean Corpuscular HGB Conc 33 g/dl (31-36); Mean Corpuscular Hemoglobin 28 pg (27-31); Mean Corpuscular Volume 85 fL (80-94); Mean Platelet Volume 8 um3 (7.4-10.4); Red Blood Count 3.52 10^6/ul (4.0-5.4); Red Cell Distribution Width 17 % (10.5-15); White Blood Count 9.3 10^3/ul (3.5-10.8)
[2016-12-29 04:30] LABS: BUN/Creatinine Ratio 30.3 (8-20); Calcium 9.4 mg/dL (8.6-10.3); EGFR African American 152.6 (>60); EGFR Non-African American 118.6 (>60); Potassium 3.2 mmol/L (3.5-5.0)
[2016-12-29] MEDS: Heparin VIAL(*) 5000 UNITS/ML VIAL (FIVE THOUSAND) SUBCUT SCH ×3 (05:42→21:45)
[2016-12-29] MEDS: QUEtiapine TAB* 25 MG PO SCH ×2 (07:39→21:45)
[2016-12-29] MEDS ORDERED: Potassium Chloride LIQUID* 20 MEQ PACKET PO ONE (12:12)
[2016-12-29] MEDS: cefTRIAXone VIAL(*) 1,000 MG in NS 0.9% 50 ML* 50 ML IVPB SCH (15:22)
[2016-12-30 04:21] VITALS: BP 130/70
[2016-12-30] MEDS: Heparin VIAL(*) 5000 UNITS/ML VIAL (FIVE THOUSAND) SUBCUT SCH ×2 (05:59→14:14)
[2016-12-30] MEDS: QUEtiapine TAB* 25 MG PO SCH (10:26)
--- NOTE | 2016-12-30 11:05 | PN ---
Subjective Date of Service: 12/30/16 Interval History: Pt is feeling ok. He denies pain. He is upset that he only got a small amount of eggs for breakfast and would like much more food for lunch. Objective Active Medications: Acetaminophen (Tylenol Tab*) 650 mg PO Q4HR PRN PRN Reason: PAIN Last Admin: 12/28/16 11:17 Dose: 650 mg Heparin Sodium (Porcine) (Heparin Vial(*)) 5,000 units SUBCUT Q8HR [facility] Last Admin: 12/30/16 05:59 Dose: Not Given Ceftriaxone Sodium 1,000 mg/ (Sodium Chloride) 50 mls @ 200 mls/hr IVPB Q24H [facility] Last Admin: 12/29/16 15:22 Dose: 200 mls/hr Magnesium Hydroxide (Milk Of Magnesia Liq*) 30 ml PO BID PRN PRN Reason: CONSTIPATION Polyethylene Glycol/Electrolytes (Miralax*) 17 gm PO DAILY PRN PRN Reason: CONSTIPATION Quetiapine Fumarate (Seroquel Tab*) 25 mg PO BID [facility] Last Admin: 12/30/16 10:26 Dose: Not Given Vital Signs 12/29/16 12/29/16 12/29/16 11:59 15:46 20:00 Temperature Pulse Rate 80 92 Respiratory 18 16 18 Rate Blood Pressure 140/72 147/65 (mmHg) O2 Sat by Pulse 97 100 Oximetry 12/29/16 12/30/16 12/30/16 23:27 04:14 08:00 Temperature 99.0 F 97.8 F Pulse Rate 66 Respiratory 16 16 18 Rate Blood Pressure 130/70 (mmHg) O2 Sat by Pulse 99 Oximetry Oxygen Devices in Use Now: None Appearance: Elderly male lying in bed, NAD Eyes: No Scleral Icterus Ears/Nose/Mouth/Throat: Mucous Membranes Moist Respiratory: Symmetrical Chest Expansion and Respiratory Effort, Clear to Auscultation - anteriorly Cardiovascular: NL Sounds; No Murmurs; No JVD, RRR, No Edema Abdominal: NL Sounds; No Tenderness; No Distention Extremities: No Clubbing, Cyanosis Skin: No Rash or Ulcers, No Nodules or Sclerosis Neurological: - - oriented to being in the hospital, paranoid Result Diagrams: 12/29/16 04:05 12/29/16 04:03 Assess/Plan/Problems-Billing Mr Griggs is a 71 yo M who has a h/o schizophrenia, chronic urinary retention, - Patient Problems (1) Gram negative sepsis Current Visit: Yes Status: Acute Comment: Continue ceftriaxone for 10 more days-midline placed as pt frequently refuses to take his medications. d/c back to [facility] today. (2) Paranoid schizophrenia Current Visit: Yes Status: Acute Code(s): F20.0 - PARANOID SCHIZOPHRENIA SNOMED Code(s): 82751125 Comment: Continue seroquel 25mg BID. (3) DVT prophylaxis Current Visit: Yes Status: Acute Code(s): PVH0332 - SNOMED Code(s): 397593935 Comment: SQ heparin (4) Full code status Current Visit: Yes Status: Acute Code(s): Z78.9 - OTHER SPECIFIED HEALTH STATUS SNOMED Code(s): 801859829
--- NOTE | 2016-12-30 11:11 | PN ---
Subjective Date of Service: 12/29/16 Interval History: LATE ENTRY Pt seen yesterday afternoon and appeared much more interactive. He denies any pain or SOB. He questioned where I grew up. He reminisced fondly of where he grew up. Objective Active Medications: Acetaminophen (Tylenol Tab*) 650 mg PO Q4HR PRN PRN Reason: PAIN Last Admin: 12/28/16 11:17 Dose: 650 mg Heparin Sodium (Porcine) (Heparin Vial(*)) 5,000 units SUBCUT Q8HR [facility] Last Admin: 12/30/16 05:59 Dose: Not Given Ceftriaxone Sodium 1,000 mg/ (Sodium Chloride) 50 mls @ 200 mls/hr IVPB Q24H [facility] Last Admin: 12/29/16 15:22 Dose: 200 mls/hr Magnesium Hydroxide (Milk Of Magnesia Liq*) 30 ml PO BID PRN PRN Reason: CONSTIPATION Polyethylene Glycol/Electrolytes (Miralax*) 17 gm PO DAILY PRN PRN Reason: CONSTIPATION Quetiapine Fumarate (Seroquel Tab*) 25 mg PO BID [facility] Last Admin: 12/30/16 10:26 Dose: Not Given Vital Signs 12/29/16 12/29/16 12/29/16 11:59 15:46 20:00 Temperature Pulse Rate 80 92 Respiratory 18 16 18 Rate Blood Pressure 140/72 147/65 (mmHg) O2 Sat by Pulse 97 100 Oximetry 12/29/16 12/30/16 12/30/16 23:27 04:14 08:00 Temperature 99.0 F 97.8 F Pulse Rate 66 Respiratory 16 16 18 Rate Blood Pressure 130/70 (mmHg) O2 Sat by Pulse 99 Oximetry Oxygen Devices in Use Now: None Appearance: Elderly male sitting up in bed, NAD Eyes: No Scleral Icterus Ears/Nose/Mouth/Throat: Mucous Membranes Moist Respiratory: Symmetrical Chest Expansion and Respiratory Effort, Clear to Auscultation Cardiovascular: NL Sounds; No Murmurs; No JVD, RRR, No Edema Abdominal: NL Sounds; No Tenderness; No Distention Extremities: No Clubbing, Cyanosis Skin: No Rash or Ulcers, No Nodules or Sclerosis Neurological: Alert and Oriented x 3 Result Diagrams: 12/29/16 04:05 12/29/16 04:03 Assess/Plan/Problems-Billing Mr Griggs is a 71 yo M who has a h/o schizophrenia, chronic urinary retention, - Patient Problems (1) Gram negative sepsis Current Visit: Yes Status: Acute Comment: Continue ceftriaxone for now. Will get PICC placed so he can continue to recieve IV Abx as he does not reliably take his oral medications. He is no longer febrile. He will be ready to go back to [facility] tomorrow. (2) Paranoid schizophrenia Current Visit: Yes Status: Acute Code(s): F20.0 - PARANOID SCHIZOPHRENIA SNOMED Code(s): 86847799 Comment: Continue seroquel 25mg BID when patient takes the medications. (3) DVT prophylaxis Current Visit: Yes Status: Acute Code(s): KZV0774 - SNOMED Code(s): 722348476 Comment: SQ heparin (4) Full code status Current Visit: Yes Status: Acute Code(s): Z78.9 - OTHER SPECIFIED HEALTH STATUS SNOMED Code(s): 089053963
--- NOTE | 2016-12-30 14:40 | DS ---
CC: Belkis Miller NP, [facility] * DATE OF ADMISSION: 12/27/2016. DATE OF DISCHARGE: 12/30/2016. PRIMARY CARE PROVIDER: Belkis Miller NP. PRINCIPAL DIAGNOSIS: Sepsis secondary to proteus mirabilis UTI and bacteremia. SECONDARY DIAGNOSIS: Paranoid schizophrenia. DISCHARGE MEDICATIONS: 1. Tylenol 650 mg p.o. q.4 hours prn pain. 2. Milk of Magnesia 30 ml p.o. b.i.d. prn constipation. 3. MiraLax 17 gm p.o. daily prn constipation. 4. Seroquel 25 mg p.o. b.i.d. 5. Ceftriaxone 1 gm IV daily times 10 days. HOSPITAL COURSE: Mr. Griggs is a 71-year-old male who presented to the emergency room on 12/27/2016 with abdominal pain and fever. Per the report from [facility], he developed abdominal pain on the day of admission after his Hemphill catheter was flushed for routine care. The catheter was removed and attempts were made to reinsert it a new Hemphill; however, the staff at [facility] was unable to do so. Also noted, the patient was febrile to 103 degree Fahrenheit and transferred to the emergency room. In the ER, the patient's Hemphill was replaced and 1 liter of esquivel red clotted urine was obtained. The patient was noted to likely be septic secondary to a urinary tract infection related to a chronic Hemphill catheter. The patient had a urine culture and blood culture since. All four of four bottles grew proteus mirabilis and the patient' s urine culture grew proteus mirabilis. This is sensitive to Ceftriaxone. The patient was initially febrile; however, has now normalized his temperature. He was initially tachycardic and this, too, has resolved. The patient's vital signs have otherwise been stable. The patient's white blood cell count was markedly elevated at 21,000 and trended down to 9.3000 the day prior to discharge. At this point, the patient is felt to be stable for discharge back to [facility]. Of note, the patient had a mildly elevated troponin of 0.04 on admission. This remained stable at follow-up draw. The patient's troponin appears to be chronically elevated. No further work-up has been undertaken for this. FOLLOW-UP CONCERNS: The patient is being discharged to [facility] today, 12/30/2016. ACTIVITY LEVEL: As tolerated. DIET: Regular. CONDITION ON DISCHARGE: Stable. Thirty-five minutes were spent discharging this patient. [id number]/[facility] #: [id number] MTDD
[2016-12-30] MEDS ORDERED: Haloperidol INJ IV/IM* 5 MG/ML AMP IV SLOW PU ONE (14:45)
[2016-12-30] MEDS: cefTRIAXone VIAL(*) 1,000 MG in NS 0.9% 50 ML* 50 ML IVPB SCH (15:10)
--- NOTE | 2017-01-03 10:31 | ED ---
I, Geovanny,Liz, scribed for Reece Edmonds MD on 12/27/16 at 1752 . Abdominal Pain/Male - HPI Summary HPI Summary: LEVEL 5 CAVEAT secondary to underlying schizophrenia. Pt's status is DNR. This 71 y/o male presents to ED for upper abd pain since 10 hours ago. Positive n/v. Blood in Smith is reported. PMHx includes urinary retention with chronic Smith cath. Pt was previously admitted on 11/18/2016 for febrile illness. - History of Current Complaint Chief Complaint: EDAbdPain Stated Complaint: ABD PAIN Time Seen by Provider: 12/27/16 15:07 Hx Obtained From: Patient, Medical Records Hx From Patient Unobtainable Due To: Other - schizophrenia Onset/Duration: Still Present Pain Intensity: 0 Pain Scale Used: 0-10 Numeric Location: Discrete At: RUQ, Discrete At: LUQ, Epigastric Radiates: No Character: Dull Aggravating Factor(s): Nothing Alleviating Factor(s): Nothing Associated Signs And Symptoms: Positive: Nausea, Vomiting, Other - blood noted in smith - Allergies/Home Medications Allergies/Adverse Reactions: Allergies Allergy/AdvReac Type Severity Reaction Status Date / Time No Known Allergies Allergy Verified 09/18/16 14:09 Home Medications: Home Medications Acetaminophen TAB* [Tylenol TAB*] 650 mg PO Q4HR PRN 12/27/16 [History Confirmed 12/27/16] Magnesium Hydroxide LIQ* [Milk of Magnesia LIQ*] 30 ml PO BID PRN 12/27/16 [ History Confirmed 12/27/16] PMH/Surg Hx/FS Hx/Imm Hx Endocrine/Hematology History: Reports: Hx Anticoagulant Therapy Denies: Hx Diabetes Cardiovascular History: Denies: Hx Hypertension, Hx Pacemaker/ICD Respiratory History: Denies: Hx Asthma Sensory History: Reports: Hx Contacts or Glasses Denies: Hx Hearing Aid Opthamlomology History: Reports: Hx Contacts or Glasses Psychiatric History: Reports: Hx Schizophrenia Denies: Hx Panic Disorder - Surgical History Surgery Procedure, Year, and Place: HERNIA REPAIR Infectious Disease History: No Infectious Disease History: Denies: Traveled Outside the [place] in Last 30 Days - Family History Known Family History: Positive: Unknown - LEVEL 5 CAVEAT - Social History Alcohol Use: "a long time ago" Substance Use Type: Reports: None Smoking Status (MU): Never Smoked Tobacco Review of Systems - ROS Summary Review of Systems Summary: LEVEL 5 CAVEAT Negative: Fever Positive: Abdominal Pain, Vomiting, Nausea Positive: hematuria, other - chronic smith All Other Systems Reviewed And Are Negative: No Physical Exam - Summary Physical Exam Summary: Constitutional: Well-developed, Well-nourished, Alert. (-) Distressed Skin: Warm, Dry HENT: Normocephalic; Atraumatic Eyes: Conjunctiva normal Neck: Musculoskeletal ROM normal neck. (-) JVD, (-) Stridor, (-) Tracheal deviation Cardio: Rhythm regular, rate normal, Heart sounds normal; Intact distal pulses; The pedal pulses are 2+ and symmetric. Radial pulses are 2+ and symmetric. (-) Murmur Pulmonary/Chest wall: Effort normal. (-) Respiratory distress, (-) Wheezes, (-) Rales Abd: Soft, (-) Tenderness, (-) Distension, (-) Guarding, (-) Rebound Musculoskeletal: (-) Edema Lymph: (-) Cervical adenopathy Neuro: Alert, Oriented x3 Psych: Mood and affect Normal Triage Information Reviewed: Yes Vital Signs On Initial Exam: Initial Vitals Temp Pulse Resp BP Pulse Ox 97.5 F 113 20 178/107 100 12/27/16 14:22 12/27/16 14:22 12/27/16 14:22 12/27/16 14:22 12/27/16 14:22 Vital Signs Reviewed: Yes Completion Of Physical Exam Limited Due To: Level 5 - Olinda Coma Scale Coma Scale Total: 13 Diagnostics - Vital Signs Vital Signs Temp Pulse Resp BP Pulse Ox 12/27/16 15:11 97 12/27/16 14:32 103.1 F 121 22 115/78 94 12/27/16 14:30 35 115/78 12/27/16 14:29 38 136/69 12/27/16 14:22 97.5 F 113 20 178/107 100 - Laboratory Result Diagrams: 12/27/16 15:00 12/27/16 15:00 Lab Statement: Any lab studies that have been ordered have been reviewed, and results considered in the medical decision making process. - Radiology CXR Xray Interpretation: No Acute Changes Radiology Interpretation Completed By: Radiologist - EKG 1619 Cardiac Rate: Tachycardia EKG Rhythm: Sinus Tachycardia - 121 bpm Abdominal Pain Fem Course/Dx - Course Assessment/Plan: This 71 y/o male presents to ED for upper abd pain and n/v. PMHx is significant for chronic indwelling Smith, and pt is reported to have had blood in smith today. Blood work indicates elevated WBC of 21.0, lactic acid of 3.3, and trop of 0.04. UA indicates UTI. Pt is accepted for admission - Diagnoses Provider Diagnoses: UTI (urinary tract infection), Sepsis, Acute urinary retention - Provider Notifications Discussed Care Of Patient With: Shiela Schultz Time Discussed With Above Provider: 15:38 Instructed by Provider To: Admit As Inpatient Discharge - Discharge Plan Condition: Stable Disposition: ADMITTED TO [facility] The documentation as recorded by the Geovanny knowles Soohyun accurately reflects the service I personally performed and the decisions made by , Reece Edmonds MD.
== END 2016-12-30 16:53 | DRG 698 ==
LOC: ED 14:05 → MEDTELE 15:44
PROVIDERS: ADMIT Internal Medicine; ATTEND Hospitalist
PROC: 0T2BX0Z Change Drainage Device in Bladder, External Approach (ICD-10-PCS; principal; 2016-12-27)
PROC: 02HV33Z Insertion of Infusion Device into Superior Vena Cava, Percutaneous Approach (ICD-10-PCS; 2016-12-27)
DX: T83.518A Infection and inflammatory reaction due to other urinary catheter, initial encounter (principal); A41.50 Gram-negative sepsis, unspecified; N17.9 Acute kidney failure, unspecified; E87.2 Acidosis; N39.0 Urinary tract infection, site not specified; F20.0 Paranoid schizophrenia; B96.4 Proteus (mirabilis) (morganii) as the cause of diseases classified elsewhere; R33.9 Retention of urine, unspecified; Y84.6 Urinary catheterization as the cause of abnormal reaction of the patient, or of later complication, without mention of misadventure at the time of the procedure; Y92.9 Unspecified place or not applicable
CPT/HCPCS: 36415; 71010; 80048; 80053; 81003; 81015; 83605; 84484; 85025; 85610; 85730; 87040; 87077; 87086; 87184; 87186; 87205; 93005; A9270-GY; J0696; J1630; J1644

== ENCOUNTER → 2017-03-25 20:56 | Emergency (ER) | payer MEDICARE, MEDICAID ==
[~2017-03-25 20:56] MED LIST: Acetaminophen SUPP* 325 MG SUPP PR ONE; Acetaminophen SUPP* 650 MG SUPP PR ONE; NS 0.9% 1000 ML* 1,000 ML IV ONE; NS 0.9% 1000 ML* 1,000 ML IV SCH; Piperacillin/Tazobac (*) 3.375 GM ADDV.VIAL ONE; cefTRIAXone(*) 1 GM in NS 0.9% 50 ML* 50 ML IVPB ONE
[2017-03-25 21:28] LABS: Hematocrit 30 % (42-52); Mean Corpuscular HGB Conc 33 g/dl (31-36); Mean Corpuscular Hemoglobin 26 pg (27-31); Mean Corpuscular Volume 80 fL (80-94); Mean Platelet Volume 7 um3 (7.4-10.4); Red Blood Count 3.78 10^6/ul (4.0-5.4); Red Cell Distribution Width 19 % (10.5-15); White Blood Count 12.3 10^3/ul (3.5-10.8)
[2017-03-25 21:30] LABS: Add Diff/Slide Review? Slide Review Added; Comments Flag Yes
[2017-03-25 21:36] LABS: Urine Bacteria Absent (Absent); Urine Bilirubin Negative (Negative); Urine Glucose Negative (Negative); Urine Nitrite Negative (Negative)
[2017-03-25 21:43] LABS: Albumin 2.8 g/dL (3.2-5.2); BUN/Creatinine Ratio 14.5 (8-20); Calcium 8.9 mg/dL (8.6-10.3); EGFR African American 16.7 (>60); Globulin 3.8 g/dL (2-4); Total Bilirubin 0.4 mg/dL (0.2-1.0); Total Protein 6.6 g/dL (6.4-8.9)
[2017-03-25 21:50] LABS: Troponin I 0.1 ng/mL (<0.04)
[2017-03-25 21:58] LABS: Immature Granulocytes 14 % (0-9); Metamyelocytes % 2 % (0-2); Neutrophil % 80 % (38-83); Platelet Morphology Large; RBC Morphology Normal (Normal); Reactive Lymph % 1 % (0-6)
--- NOTE | 2017-03-25 22:41 | ED ---
Phuong Hastings Alfonso, scribed for Irena Worthy MD on 03/25/17 at 2123 . Altered Mental Status - HPI Summary HPI Summary: LEVEL 5 CAVEAT DUE TO AMS. History from [facility] and previous admission. This patient is a 71 year old M BIBA from [facility] to [facility] for AMS, decreased po and noted temperature since yesterday. Pt has a PMH significant for schizophrenia and chronic smith. According to the MAR accompany pt did not receive APAP today. Pt is not answering questions - moaning with discomfort. Review of recent hospitalization, pt with urosepsis December 2016. Pt with MOLST - DNR/DNI trial of abx ok Patients medication reviewed this visit. - History Of Current Complaint Chief Complaint: EDAltMentalStatus Stated Complaint: WEAKNESS Time Seen by Provider: 03/25/17 20:59 Hx Obtained From: EMS, Medical Records, Other: - [facility] records Hx From Patient Unobtainable Due To: Altered Mental Status Onset/Duration: Still Present Timing: Constant, Lasting Days - 3 Severity Initially: Moderate Severity Currently: Moderate Character: Confusion Alleviating Factor(s): Nothing Associated Signs And Symptoms: Positive: Fever Related History: Seizure - Allergies/Home Medications Allergies/Adverse Reactions: Allergies Allergy/AdvReac Type Severity Reaction Status Date / Time No Known Allergies Allergy Verified 09/18/16 14:09 PMH/Surg Hx/FS Hx/Imm Hx Previously Healthy: No Endocrine/Hematology History: Reports: Hx Anticoagulant Therapy Denies: Hx Diabetes Cardiovascular History: Denies: Hx Hypertension, Hx Pacemaker/ICD Respiratory History: Denies: Hx Asthma Sensory History: Reports: Hx Contacts or Glasses Denies: Hx Hearing Aid Opthamlomology History: Reports: Hx Contacts or Glasses Psychiatric History: Reports: Hx Schizophrenia Denies: Hx Panic Disorder - Surgical History Surgery Procedure, Year, and Place: HERNIA REPAIR Infectious Disease History: Yes Infectious Disease History: Reports: Hx of Known/Suspected MRSA Denies: Traveled Outside the [place] in Last 30 Days - Family History Known Family History: Positive: Unknown - LEVEL 5 CAVEAT - Social History Occupation: Disabled Lives: [facility] Alcohol Use: "a long time ago" Substance Use Type: Reports: None Smoking Status (MU): Never Smoked Tobacco Review of Systems Positive: Fever, Other - MS changes Positive: other - turbid urine Neurological: Other - AMS Positive: Other - moaning, decreased mentation All Other Systems Reviewed And Are Negative: No Physical Exam Triage Information Reviewed: Yes Vital Signs On Initial Exam: Initial Vitals Temp Pulse Resp BP Pulse Ox 101.8 F 137 30 135/57 100 03/25/17 21:01 03/25/17 21:01 03/25/17 21:01 03/25/17 21:01 03/25/17 21:01 Vital Signs Reviewed: Yes Completion Of Physical Exam Limited Due To: Level 5 Appearance: Positive: Ill-Appearing Skin: Positive: Warm, Skin Color Reflects Adequate Perfusion Eyes: Positive: Normal, EOMI, VAZQUEZ ENT: Positive: Other - mmpasty, lips dry Neck: Positive: Supple, Nontender, No Lymphadenopathy Respiratory/Lung Sounds: Positive: Clear to Auscultation, Breath Sounds Present , Decreased Breath Sounds, Other - somewhat shallow - no w/r No retractions Cardiovascular: Positive: Normal, RRR - tachycardia No m/r CBT < 2 sec Abdomen Description: Positive: Nontender, No Organomegaly, Soft, Other: - pt with thick, turbid urine from smith and in bag. Negative: CVA Tenderness (R), CVA Tenderness (L), Distended Bowel Sounds: Positive: Present Musculoskeletal: Positive: Normal Neurological: Positive: Other Psychiatric: Positive: Other - Pt moaning AVPU Assessment: Verbal (Reponds To) - Olinda Coma Scale Best Eye Response: 4 - Spontaneous Best Motor Response: 5 - Purposeful Movement Best Verbal Response: 3 - Inappropriate Words Diagnostics - Vital Signs Vital Signs Temp Pulse Resp BP Pulse Ox 03/25/17 21:01 101.8 F 137 30 135/57 100 - Laboratory Result Diagrams: 03/25/17 21:15 03/25/17 21:15 Lab Statement: Any lab studies that have been ordered have been reviewed, and results considered in the medical decision making process. - Radiology CXR Radiology Interpretation Completed By: Radiologist - EKG 2207 Cardiac Rate: Tachycardia Re-Evaluation - Re-Evaluation First Eval Re-Evaluation Time: 10:35 Comment: Pt continues to be tachycardic - APAP given rectal. Pt with smith cancino - core temp 40. reviewed labs and previous urine culture results - sensitive to Rocephin. Will give IV. speak to hospitalist Second Eval Re-Evaluation Time: 10:55 Comment: Spoke with [facility] transfer RN - awaiting call from manager occupational- will place in step down Third Eval Re-Evaluation Time: 11:15 Comment: spoke with Dr. Singleton - accepting tele bed. request add [email or web address] Altered Mental Statu Course/Dx - Course Assessment/Plan: Pt presents from [facility] with fever, decreased mental state and fever. Pt with chronic smith. Pt with history of urosepsis. - urine appears turbid. Concern for sepsis given pt fever and confusion. Pt with MOLST - DNR/DNI - - Diagnoses Discharge Diagnoses: UTI (urinary tract infection), ARF (acute renal failure), Sepsis - Provider Notifications Discussed Care Of Patient With: Dr. Leon - Dr. 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
[2017-03-26 01:49] VITALS: BP 102/47
--- NOTE | 2017-03-26 07:55 | RAD ---
HISTORY: Hypertension, fever COMPARISONS: None VIEWS: 1: frontal portable view of the chest at 9:46 PM. The patient is obliqued to the right. FINDINGS: LINES AND TUBES: None. CARDIOMEDIASTINAL SILHOUETTE: The cardiomediastinal silhouette is normal for portable technique. PLEURA: The costophrenic angles are sharp. No pleural abnormalities are noted. LUNG PARENCHYMA: There is patchy alveolar opacification of the right lung base near the cardiophrenic angle. ABDOMEN: The upper abdomen is clear. There is no subphrenic gas. BONES AND SOFT TISSUES: Degenerative changes are noted of the shoulders and spine. IMPRESSION: PATCHY RIGHT BASILAR ATELECTASIS VERSUS CONSOLIDATION.
== END | disposition short-term general hospital (02) ==
LOC: ED 20:56
DX: N39.0 Urinary tract infection, site not specified (principal); N17.9 Acute kidney failure, unspecified; A41.9 Sepsis, unspecified organism; R50.9 Fever, unspecified; R53.1 Weakness
CPT/HCPCS: 36415; 71010; 80053; 81003; 81015; 83605; 84484; 85025; 85610; 85730; 87040; 87077; 87086; 87184; 87186; 87205; 93005; 99285; A9270-GY; J0696; J2543

== ENCOUNTER 2017-04-29 22:22 | Inpatient (IN) | payer MEDICARE, MEDICAID ==
[2017-04-29] MEDS ORDERED: NS 0.9% 1000 ML*IV.FLUID IV ONE (22:43)
[2017-04-29] MEDS ORDERED: Ondansetron INJ* 2 MG/ML VIAL IV ONE (22:43)
[2017-04-29] MEDS ORDERED: NS 0.9% 1000 ML* 1,000 ML IV ONE (22:45)
[2017-04-29 23:07] LABS: Hematocrit 34 % (42-52); Hemoglobin 11.1 g/dl (14.0-18.0); Mean Corpuscular HGB Conc 33 g/dl (31-36); Mean Corpuscular Hemoglobin 27 pg (27-31); Mean Corpuscular Volume 82 fL (80-94); Mean Platelet Volume 8 um3 (7.4-10.4); Red Blood Count 4.15 10^6/ul (4.0-5.4); Red Cell Distribution Width 19 % (10.5-15); White Blood Count 8.1 10^3/ul (3.5-10.8)
[2017-04-29 23:08] LABS: Add Diff/Slide Review? Slide Review Added; Comments Flag Yes
[2017-04-29 23:22] LABS: ALT 7 U/L (7-52); AST 14 U/L (13-39); Albumin 3.1 g/dL (3.2-5.2); Alkaline Phosphatase 75 U/L (34-104); BUN/Creatinine Ratio 13.9 (8-20); Blood Urea Nitrogen 44 mg/dL (6-24); CO2 Carbon Dioxide 18 mmol/L (22-32); Calcium 9.7 mg/dL (8.6-10.3); Chloride 94 mmol/L (101-111); EGFR African American 24.9 (>60); EGFR Non-African American 19.4 (>60); Globulin 4.2 g/dL (2-4); Glucose 161 mg/dL (70-100); Sodium 129 mmol/L (133-145); Total Protein 7.3 g/dL (6.4-8.9)
[2017-04-29 23:24] LABS: Anion Gap 17 mmol/L (2-11); Potassium 5.2 mmol/L (3.5-5.0)
[2017-04-29 23:27] LABS: Troponin I 0.04 ng/mL (<0.04)
[2017-04-29 23:51] LABS: Urine Bacteria 2+ (Absent); Urine Bilirubin Negative (Negative); Urine Glucose Negative (Negative); Urine Nitrite Negative (Negative)
[2017-04-30] MEDS ORDERED: Ondansetron INJ* 2 MG/ML VIAL IV ONE (00:01)
[2017-04-30 00:13] LABS: Microcytosis 2+
[2017-04-30 00:20] LABS: Add Path Review? YES
--- NOTE | 2017-04-30 01:06 | HP ---
H&P (Free Text) History and Physical: PCP: Rito Jacobsen MD Date/Time: 04/30/2017 0050 CC: N/V, diarrhea HPI: Mr Griggs is a 71YO male resident of [facility] HX paranoid schizophrenia & MSSA bactermia who is transferred from [facility] with little more clinical information than that he has been having N/V & diarrhea. ED charge nurse is attempting to obtain more clinical information from [facility]. Mr Griggs is alert and oriented to person and place, but not time & situation. When asked what's bothering him replies, "My arm hurts" as the nurse is attempting an IV. When asked why he came to [facility] only replies, " I'm dehydrated.", repetitively. He reportedly complained to EMS of severe pain related to his indwelling smith catheter, but denies this and other complaints. While speaking with him, he gags a couple times and spits coffee-ground material into an emesis basin. His lower face is stained with coffee-ground material as well. 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 He was first identified with this in [facility] ED in March & transferred to [place]. Will request records. After speaking to [facility], ED charge nurse reports he is only taking quetiapine PO and is reported to frequently refuse on the basis he is being poisoned. PMedHx paranoid schizophrenia generalized weakeness/deconditioning iron deficiency anemia obstructive & reflux uropathy chronic constipation dysphagia rhabdomyolysis DVT thrombocytopenia SocHx: unobtainable FamHx: unobtainable ROS: as above, otherwise reviewed and all were negative vitals: Vital Signs Temp 37.2 C 04/29/17 22:26 Pulse 122 04/29/17 23:30 Resp 34 04/30/17 01:00 BP 104/69 04/30/17 00:30 Pulse Ox 100 04/30/17 01:01 Intake & Output 04/29/17 04/29/17 04/30/17 11:59 23:59 11:59 Weight 61.689 kg 65.317 kg Constitutional: NAD, normally developed, well-nourished white male HEENM: atraumatic; sclera/conjunctiva: non-icteric/clear; hearing: clinically intact; oropharynx: clear, mucosa moist, myla-oral coffee ground material Neck: soft tissue: non-tender; thyroid: normal Pulmonary: clear to auscultation bilaterally, good aeration, no accessory muscle use CV: RR/RR, normal S1S2, no carotid bruit, no jugular venous distention, 2+ B DP/ PT, no edema Abdominal: soft, non-distended, mild variable diffuse tenderness, no rebound/ guarding/rigidity, normoactive bowel sounds, no hepatosplenomegaly or masses, no costovertebral angle tenderness Musculoskeletal: general: contactured extremities x4, no palpable tenderness Integumental: normal appearance and texture of exposed skin Psychiatric orientation: AA&O to PP, not TS affect: calm to mildly demanding mood: cooperative eye contact: fair to poor content: unreliable responses: timely insight: poor Testing: Lab Results 04/29/17 04/29/17 04/29/17 Range/Units 22:50 22:50 22:50 WBC 8.1 (3.5-10.8) 10^3/ul RBC 4.15 (4.0-5.4) 10^6/ul Hgb 11.1 L (14.0-18.0) g/dl Hct 34 L (42-52) % MCV 82 (80-94) fL MCH 27 (27-31) pg MCHC 33 (31-36) g/dl RDW 19 H (10.5-15) % Plt Count 319 (150-450) 10^3/ul MPV 8 (7.4-10.4) um3 Neut % (Auto) 89.6 H (38-83) % Lymph % (Auto) 7.2 L (25-47) % [place] % (Auto) 2.6 (1-9) % Eos % (Auto) 0 (0-6) % Baso % (Auto) 0.6 (0-2) % Absolute Neuts (auto) 7.2 (1.5-7.7) 10^3/ul Absolute Lymphs (auto) 0.6 L (1.0-4.8) 10^3/ul Absolute Monos (auto) 0.2 (0-0.8) 10^3/ul Absolute Eos (auto) 0 (0-0.6) 10^3/ul Absolute Basos (auto) 0 (0-0.2) 10^3/ul Absolute Nucleated RBC 0 10^3/ul Nucleated RBC % 0 Normal RBC Morphology Not Reportable Microcytosis 2+ Hem Pathologist Commnt Pending INR (Anticoag Therapy) 1.03 (0.89-1.11) APTT 28.5 (26.0-36.3) seconds Sodium 129 L (133-145) mmol/L Potassium 5.2 H (3.5-5.0) mmol/L Chloride 94 L (101-111) mmol/L Carbon Dioxide 18 L (22-32) mmol/L Anion Gap 17 H (2-11) mmol/L BUN 44 H (6-24) mg/dL Creatinine 3.17 H (0.67-1.17) mg/dL Est GFR ( Amer) 24.9 (>60) Est GFR (Non-Af Amer) 19.4 (>60) BUN/Creatinine Ratio 13.9 (8-20) Glucose 161 H (70-100) mg/dL Lactic Acid (0.5-2.0) mmol/L Calcium 9.7 (8.6-10.3) mg/dL Total Bilirubin 0.70 (0.2-1.0) mg/dL AST 14 (13-39) U/L ALT 7 (7-52) U/L Alkaline Phosphatase 75 (34-104) U/L Troponin I 0.04 H* (<0.04) ng/mL Total Protein 7.3 (6.4-8.9) g/dL Albumin 3.1 L (3.2-5.2) g/dL Globulin 4.2 H (2-4) g/dL Albumin/Globulin Ratio 0.7 L (1-3) Urine Color Urine Appearance Urine pH (5-9) Ur Specific [place] (1.010-1.030) Urine Protein (Negative) Urine Ketones (Negative) Urine Blood (Negative) Urine Nitrate (Negative) Urine Bilirubin (Negative) Urine Urobilinogen (Negative) Ur Leukocyte Esterase (Negative) Urine WBC (Auto) (Absent) Urine RBC (Auto) (Absent) Urine Bacteria (Absent) Urine Glucose (Negative) 04/29/17 04/29/17 Range/Units 22:50 23:19 WBC (3.5-10.8) 10^3/ul RBC (4.0-5.4) 10^6/ul Hgb (14.0-18.0) g/dl Hct (42-52) % MCV (80-94) fL MCH (27-31) pg MCHC (31-36) g/dl RDW (10.5-15) % Plt Count (150-450) 10^3/ul MPV (7.4-10.4) um3 Neut % (Auto) (38-83) % Lymph % (Auto) (25-47) % [place] % (Auto) (1-9) % Eos % (Auto) (0-6) % Baso % (Auto) (0-2) % Absolute Neuts (auto) (1.5-7.7) 10^3/ul Absolute Lymphs (auto) (1.0-4.8) 10^3/ul Absolute Monos (auto) (0-0.8) 10^3/ul Absolute Eos (auto) (0-0.6) 10^3/ul Absolute Basos (auto) (0-0.2) 10^3/ul Absolute Nucleated RBC 10^3/ul Nucleated RBC % Normal RBC Morphology Microcytosis Hem Pathologist Commnt INR (Anticoag Therapy) (0.89-1.11) APTT (26.0-36.3) seconds Sodium (133-145) mmol/L Potassium (3.5-5.0) mmol/L Chloride (101-111) mmol/L Carbon Dioxide (22-32) mmol/L Anion Gap (2-11) mmol/L BUN (6-24) mg/dL Creatinine (0.67-1.17) mg/dL Est GFR ( Amer) (>60) Est GFR (Non-Af Amer) (>60) BUN/Creatinine Ratio (8-20) Glucose (70-100) mg/dL Lactic Acid 7.0 H* (0.5-2.0) mmol/L Calcium (8.6-10.3) mg/dL Total Bilirubin (0.2-1.0) mg/dL AST (13-39) U/L ALT (7-52) U/L Alkaline Phosphatase (34-104) U/L Troponin I (<0.04) ng/mL Total Protein (6.4-8.9) g/dL Albumin (3.2-5.2) g/dL Globulin (2-4) g/dL Albumin/Globulin Ratio (1-3) Urine Color Yellow Urine Appearance Cloudy Urine pH 6.0 (5-9) Ur Specific [place] 1.009 L (1.010-1.030) Urine Protein 2+(100 mg/dl) H (Negative) Urine Ketones Negative (Negative) Urine Blood 3+ H (Negative) Urine Nitrate Negative (Negative) Urine Bilirubin Negative (Negative) Urine Urobilinogen Negative (Negative) Ur Leukocyte Esterase 3+ H (Negative) Urine WBC (Auto) 3+(>20/hpf) H (Absent) Urine RBC (Auto) 3+(>10/hpf) H (Absent) Urine Bacteria 2+ H (Absent) Urine Glucose Negative (Negative) ECG, personally reviewed: NSR rate 116, no ischemia CXR, personally reviewed: no acute process XRY abd, personally reviewed: non-specific bowel gas pattern Impression: 71M presenting with sepsis 2nd UTI & upper GI bleed DIAGNOSIS & PLAN Primary sepsis (tachycardia, tachypnea, lactate 7.0) 2nd UTI : IV piperacillin/tazobactam initiated in ED, will continue : IVFs : blood & urine CXs : trend lactate : supportive care upper GI bleed, mild : NPO x/ meds : pantoprazole bolus/GTT : trend H&H : consider GI consult in AM, if indicated Secondary paranoid schizophrenia : continue quetiapine HX DVT : SCDs : no anticoagulation 2nd upper GI bleed Admission Rational: inpatient for sepsis 2nd UTI requiring IVFs & IV ABX to prevent rapid decompensation DVTp: SCDs Code Status: DNR/I HCP: brother, Mikie Griggs
[2017-04-30] MEDS ORDERED: CMCS: Melatonin (NF) 3 MG TAB PO PRN (01:42)
[2017-04-30] MEDS ORDERED: Acetaminophen TAB* 325 MG PO PRN (01:42)
[2017-04-30] MEDS ORDERED: NS 0.9% 1000 ML* 1,000 ML IV SCH ×3 (01:45→11:19)
[2017-04-30] MEDS ORDERED: Ondansetron INJ* 2 MG/ML VIAL IV PRN (01:47)
[2017-04-30] MEDS ORDERED: Pantoprazole IV* 40 MG IV ONE (01:47)
[2017-04-30] MEDS ORDERED: Polyethylene Glycol 3350* 17 GM PACKET PO PRN (01:49)
[2017-04-30] MEDS ORDERED: Pantoprazole IV* 80 MG in NS 0.9% 250 ML* 250 ML IVPB SCH (02:00)
[2017-04-30 05:30] LABS: Hematocrit 30 % (42-52); Hemoglobin 9.5 g/dl (14.0-18.0); Mean Corpuscular HGB Conc 32 g/dl (31-36); Mean Corpuscular Hemoglobin 26 pg (27-31); Mean Corpuscular Volume 82 fL (80-94); Mean Platelet Volume 8 um3 (7.4-10.4); Red Blood Count 3.63 10^6/ul (4.0-5.4); Red Cell Distribution Width 19 % (10.5-15); White Blood Count 6.5 10^3/ul (3.5-10.8)
[2017-04-30 05:32] LABS: Add Diff/Slide Review? Slide Review Added; Comments Flag Yes
[2017-04-30 05:49] LABS: BUN/Creatinine Ratio 14.9 (8-20); Calcium 8.8 mg/dL (8.6-10.3); EGFR African American 23.9 (>60); EGFR Non-African American 18.6 (>60); Potassium 4.7 mmol/L (3.5-5.0)
[2017-04-30 06:07] LABS: Troponin I 0.05 ng/mL (<0.04)
[2017-04-30] MEDS ORDERED: Norepinephrine 16MCG/ML IVPRE* 4,000 MCG/250 ML BAG IV ONE (06:40)
[2017-04-30] MEDS: NS 0.9% 1000 ML* 1,000 ML IV SCH ×2 (07:00→08:00)
--- NOTE | 2017-04-30 07:45 | RAD ---
HISTORY: Fever, vomiting COMPARISONS: March 25, 2017 VIEWS: 1: frontal portable view of the chest at 11:15 PM FINDINGS: LINES AND TUBES: None. CARDIOMEDIASTINAL SILHOUETTE: The cardiomediastinal silhouette is normal for portable technique. PLEURA: The costophrenic angles are sharp. No pleural abnormalities are noted. LUNG PARENCHYMA: The lungs are clear. There is improved aeration of the right lung base. ABDOMEN: The upper abdomen is clear. There is no subphrenic gas. BONES AND SOFT TISSUES: Degenerative changes are noted. IMPRESSION: NO ACTIVE CARDIOPULMONARY DISEASE.
--- NOTE | 2017-04-30 07:52 | RAD ---
HISTORY: Vomiting COMPARISONS: None relevant VIEWS: Frontal supine and upright views of the abdomen. FINDINGS: BOWEL: There is distention mild dilatation of small bowel loops. There is a moderate amount stool within the colon. CALCULI: There are no abnormal calculi. BONES AND SOFT TISSUES: Degenerative changes are noted OTHER FINDINGS: The lung bases are clear. There is no subphrenic gas. IMPRESSION: MILD DILATATION OF SMALL BOWEL LOOPS CONCERNING FOR PARTIAL OR EARLY SMALL BOWEL OBSTRUCTION
[2017-04-30] MEDS ORDERED: Norepinephrine 16MCG/ML IVPRE* 4,000 MCG/250 ML BAG IV SCH ×2 (08:00)
--- NOTE | 2017-04-30 08:21 | RAD ---
CLINICAL HISTORY: Abdominal pain, distended small bowel COMPARISON: November 18, 2016 TECHNIQUE: Multiple contiguous axial CT scans were obtained of the abdomen and pelvis, without intravenous contrast enhancement. Coronal and sagittal multiplanar reformations are submitted for review. Oral contrast was not administered. FINDINGS: The study is limited by the lack of intravenous contrast. This limits evaluation of the solid organs and vasculature. Evaluation is limited by patient breathing motion artifact and hand placement. LUNG BASES: The lung bases are clear. LIVER: There are multiple low-attenuation hepatic parenchymal lesions. Largest are consistent with simple cysts. These are too small to definitively characterize. BILE DUCTS: There is no intrahepatic or extrahepatic biliary dilatation. GALLBLADDER: The gallbladder is normal, without pericholecystic inflammatory change. PANCREAS: The pancreas is normal, without mass or ductal dilatation. SPLEEN: Normal in size and appearance. UPPER GI TRACT: Evaluation of the gastrointestinal tract is limited by incomplete gastric distention. The upper GI tract is unremarkable. SMALL BOWEL AND MESENTERY: There is diffuse distention mild dilatation of small bowel without transition point. COLON: There is mucosal thickening of the descending and rectosigmoid colon. ADRENALS: Normal bilaterally. KIDNEYS: There is bilateral hydronephrosis and hydroureter. BLADDER: The bladder is only partially distended. There is diffuse bladder wall thickening. A Jordan catheter is noted. PELVIC ORGANS: The prostate gland is not well visualized. The Jordan catheter balloon is inflated the level of the prostate gland. AORTA: The aorta is normal. IVC: Unremarkable LYMPH NODES: There is no lymphadenopathy by size criteria. ABDOMINAL WALL: There is no evidence for abdominal wall hernia. BONES AND SOFT TISSUES: There are mild diffuse degenerative changes. OTHER: There is moderate amount of ascites. IMPRESSION: 1. DIFFUSE DISTENTION WITH MILD DILATATION OF SMALL BOWEL LOOPS WITHOUT DISCRETE TRANSITION POINT. THE DIFFERENTIAL INCLUDES EARLY OR PARTIAL OBSTRUCTION VERSUS ILEUS. 2. THERE IS DIFFUSE MUCOSAL THICKENING OF THE DESCENDING AND RECTOSIGMOID COLON. THE DIFFERENTIAL INCLUDES COLITIS. 3. THERE IS BILATERAL HYDRONEPHROSIS WITHOUT NEPHROLITHIASIS. 4. THERE IS BLADDER WALL THICKENING. 5. A JORDAN CATHETER IS INFLATED THE BALLOON AT THE LEVEL OF THE PROSTATE GLAND. 6. ASCITES. PRELIMINARY FINDINGS WERE REPORTED BY DR. OLIVER AT APPROXIMATELY 2:31 AM ON APRIL 30, 2017
[2017-04-30] MEDS: Docusate CAP* 100 MG PO SCH ×2 (08:29→20:59)
[2017-04-30] MEDS: QUEtiapine TAB* 25 MG PO SCH ×2 (08:29→20:59)
[2017-04-30] MEDS ORDERED: Vancomycin(*) 1,000 MG in NS 0.9% 250 ML* 250 ML IVPB ONE (08:30)
[2017-04-30] MEDS: Sodium Bicarbonate 8.4% IV* 150 MEQ in D5W 1000 ML BAG* 1,000 ML IVPB SCH ×4 (09:06→11:15)
[2017-04-30] MEDS ORDERED: Morphine INJ* 10 MG/ML 1 ML CARPUJECT IV ONE (09:45)
--- NOTE | 2017-04-30 11:27 | PN ---
Progress Note - Progress Note Date of Service: 04/30/17 Note: CRITICAL CARE MEDICINE Date: 04/30/17 Time: 935 SUBJECTIVE: Patient seen and examined. PHYSICAL EXAM: in distress. tachycardia, tachypnea. Vital Signs: Reviewed. Neurologic: awake, communicating. knows he is in hospital. doesn't know which one, nor date. Not holding capacity. ROMAN. HEENT: pupils equal. Sclera anicteric. Trachea midline. Cardiovascular: S1 S2 tachy Respiratory: labored with rates to 40s Abdomen: diffuse tenderness and guarding with peritoneal signs. Extremities: Warm. Access: piv, IO LABS: Reviewed. IMAGING: Reviewed. MEDICATIONS: Reviewed. ASSESSMENT: 71 M Septic shock sec to gram neg uti, with ischemic colitis ensuing and MSOF including mild (at least) septic encephalopathy, acute hypoxic respiratory failure, acute on chronic renal failure, & severe lactic acidosis. PLAN: Neurologic: start morphine gtt to alleviate his comfort and dyspnea. May need a large amount. Cardiovascular: Hypoperfused. Received bolus IVF and now on almost 20mcg/ levophed. Unfortunately his demands and degree of ischemia is too vast. Breathing is worsening with lung injury and can back down on fluids and attempt to still use levophed, but this may also exaccerbate bowels moreso. Respiratory: DNI and no other rescues will help his dynamics now, so will max on the 15lpm max. morphine prn Gastrointestinal: CT was probably early on in his course last pm and bowels would only likely appear worse now post fluid resuscitation and given the diffuse nature without transition point no great target for surgery and no particular vascular distribution. If just from low flow state would just continue medical resuscitation and hope that bowel integrity can hold. place ngt to help with nausea and any decompression. Renal/Metabolic: acute on more recent ckd (awaiting recent records) with anuria now and likely only to fail further. Buffer with bicarb with bolus and hope for some recovery potential but unlikely. Chronic smith Infectious Disease: receiving zosyn. GNR in . Hematology: hemodiluted some. can hold off on ppi gtt as colitis not going to respond to ppi. Endocrine: no role for steroids. Musculoskeletal: bedrest Psych/Social: chronic seroquel if able. may need benzos or haldol if agitation with impending doom becomes apparent. Supportive and preventative care as ordered. Outcome looks dismal Disposition: ICU Code Status: DNR, DNI Critical Care Time: 35min Niko Funez DO
[2017-04-30] MEDS: Morphine PCA ADULT* 5 MG/ML 30 ML PCA SCH (12:03)
--- NOTE | 2017-04-30 12:56 | RAD ---
HISTORY: Post NG tube placement COMPARISONS: April 29, 2017 VIEWS: 1: frontal portable view of the chest at 12:30 PM FINDINGS: LINES AND TUBES: A gastric tube is noted. The tip is noted in the left upper quadrant in a prepyloric position. CARDIOMEDIASTINAL SILHOUETTE: The cardiomediastinal silhouette is normal for portable technique. PLEURA: The costophrenic angles are sharp. No pleural abnormalities are noted. LUNG PARENCHYMA: The lungs are clear. ABDOMEN: The upper abdomen is clear. There is no subphrenic gas. BONES AND SOFT TISSUES: No bone or soft tissue abnormalities are noted. IMPRESSION: LINES AND TUBES ABOVE. NO ACTIVE CARDIOPULMONARY DISEASE.
--- NOTE | 2017-04-30 14:16 | PN ---
Progress Note - Progress Note Date of Service: 04/30/17 Note: CRITICAL CARE MEDICINE Date: 04/30/17 Time: 1400 More comfortable with morphine but still with high metabolic, RR still high 20s but at least keep less then 30s. Encephalopathy worse. BP dwindling. Maxed levo at 20. Unfortunately needing support but demise eminent. Continued measured support as this is an expectant process. Disposition: ICU Code Status: DNR, DNI Critical Care Time: 15min Niko Funez DO
[2017-04-30] MEDS: Norepinephrine 16MCG/ML IVPRE* 4,000 MCG/250 ML BAG IV SCH ×2 (17:47→21:00)
[2017-04-30 19:06] LABS: Lipase < 10 U/L (11.0-82.0)
[2017-05-01] MEDS: Morphine PCA ADULT* 5 MG/ML 30 ML PCA SCH (00:24)
[2017-05-01] MEDS: Norepinephrine 16MCG/ML IVPRE* 4,000 MCG/250 ML BAG IV SCH ×2 (00:25→03:53)
[2017-05-01 06:07] VITALS: BP 41/24
--- NOTE | 2017-05-01 06:30 | DS ---
Date of Admission: 04/30/2017 Date of Discharge: 05/01/2017 Discharge Diagnoses sepsis 2nd UTI progressing to septic shock upper GI bleed ischemic bowel paranoid schizophrenia HPI Mr Griggs is a 71YO male resident of [facility] HX paranoid schizophrenia & MSSA bactermia who is transferred from [facility] with little more clinical information than that he has been having N/V & diarrhea. ED charge nurse is attempting to obtain more clinical information from [facility]. Mr Griggs is alert and oriented to person and place, but not time & situation. When asked what's bothering him replies, "My arm hurts" as the nurse is attempting an IV. When asked why he came to [facility] only replies, " I'm dehydrated.", repetitively. He reportedly complained to EMS of severe pain related to his indwelling smith catheter, but denies this and other complaints. While speaking with him, he gags a couple times and spits coffee-ground material into an emesis basin. His lower face is stained with coffee-ground material as well. 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 He was first identified with this in [facility] ED in March & transferred to [place]. Will request records. After speaking to [facility], ED charge nurse reports he is only taking quetiapine PO and is reported to frequently refuse on the basis he is being poisoned. Hospital Course Mr Griggs was admitted for IVFs and IV ABX for sepsis 2nd UTI. Despite adequate fluid resuscitation & ABX he continued to decline requiring transfer to ICU for initiation of pressor support and closer monitoring. Unfortunately he continued progressing into irreversible septic shock resulting in escalating abdominal pain and lactic acid indicative of ischemic bowel. Per his wishes he remained a DNR/I and passed comfortably at 0614 05/01/2017. Time for Discharge: <30minutes
== END 2017-05-01 06:14 | disposition expired | DRG 871 ==
LOC: ED 22:22 → MED 04-30 01:38 → ICU 04-30 06:13
PROVIDERS: ADMIT Hospitalist; ATTEND Internal Medicine Critical Care Medicine
DX: A41.51 Sepsis due to Escherichia coli [E. coli] (principal); R65.21 Severe sepsis with septic shock; J96.01 Acute respiratory failure with hypoxia; G93.41 Metabolic encephalopathy; K55.9 Vascular disorder of intestine, unspecified; K92.0 Hematemesis; N18.4 Chronic kidney disease, stage 4 (severe); D69.6 Thrombocytopenia, unspecified; N39.0 Urinary tract infection, site not specified; F20.0 Paranoid schizophrenia; M62.82 Rhabdomyolysis; N17.9 Acute kidney failure, unspecified; E87.2 Acidosis; Z66 Do not resuscitate; D50.9 Iron deficiency anemia, unspecified; N13.9 Obstructive and reflux uropathy, unspecified; K21.9 Gastro-esophageal reflux disease without esophagitis; K59.09 Other constipation; R13.10 Dysphagia, unspecified; Z86.718 Personal history of other venous thrombosis and embolism; B96.20 Unspecified Escherichia coli [E. coli] as the cause of diseases classified elsewhere
CPT/HCPCS: 36415; 71010; 74020; 74176; 80048; 80053; 81003; 81015; 82271; 83605; 83690; 84484; 85025; 85060; 85610; 85730; 87040; 87077; 87086; 87186; 87205; 87641; 93005; 94760; A9270-GY; J2270; J2405; J2543; J3370; J7060